=== PATIENT | female | born 1995 | race African-American/Black ===

== ENCOUNTER 2016-09-18 08:22 | Emergency (ER) | payer OTHER ==
[2016-09-18 08:33] VITALS: BP 127/76
--- NOTE | 2016-09-18 09:19 | UC ---
Throat Pain/Nasal Mj HPI - HPI Summary HPI Summary: sore left side of throat for 2 days, and period is 2 days late - History of Current Complaint Chief Complaint: UCRespiratory Stated Complaint: SORE THROAT Time Seen by Provider: 09/18/16 08:30 Hx Obtained From: Patient Hx Last Menstrual Period: 08/20/16 ?: No Onset/Duration: Sudden Onset, Lasting Days - 2, Still Present Severity: Mild Pain Intensity: 5 Pain Scale Used: 0-10 Numeric Cough: None Associated Signs & Symptoms: Positive: Negative - Allergies/Home Medications Allergies/Adverse Reactions: Allergies Allergy/AdvReac Type Severity Reaction Status Date / Time Seasonal Allergies Allergy Congestion Uncoded 05/04/16 14:46 PMH/Surg Hx/FS Hx/Imm Hx Previously Healthy: Yes Endocrine History Of: Denies: Diabetes, Thyroid Disease Cardiovascular History Of: Denies: Cardiac Disorders, Hypertension Respiratory History Of: Denies: COPD, Asthma GI/ History Of: Denies: Ulcer Other History Of: Negative For: Anticoagulant Therapy - Surgical History Surgical History: Yes Surgery Procedure, Year, and Place: D&C 2015 - Family History Known Family History: Positive: Hypertension Negative: Cardiac Disease, Diabetes - Social History Occupation: Employed Full-time Lives: With Family Alcohol Use: Rare Substance Use Type: None Smoking Status (MU): Never Smoked Tobacco Have You Smoked in the Last Year: No - Immunization History Most Recent Influenza Vaccination: 2014 Most Recent Tetanus Shot: 01/10/13 Most Recent Pneumonia Vaccination: Unknown Review of Systems Constitutional: Negative Skin: Negative Eyes: Negative ENT: Sore Throat - left side Respiratory: Negative Cardiovascular: Negative Gastrointestinal: Negative Genitourinary: Negative Motor: Negative Neurovascular: Negative Musculoskeletal: Negative Neurological: Negative Psychological: Negative All Other Systems Reviewed And Are Negative: Yes Physical Exam Triage Information Reviewed: Yes Appearance: Well-Appearing, No Pain Distress, Well-Nourished Vital Signs: Initial Vital Signs Temp 99.5 F 09/18/16 08:26 Pulse 112 09/18/16 08:26 Resp 16 09/18/16 08:26 BP 127/76 09/18/16 08:26 Pulse Ox 98 09/18/16 08:26 Vital Signs Reviewed: Yes Eye Exam: Normal Eyes: Positive: Conjunctiva Clear ENT Exam: Normal ENT: Positive: Normal ENT inspection, Hearing grossly normal, Pharynx normal, TMs normal, Tonsillar swelling - left---no evidence of peritonsil. abscess ulula mid line. Negative: Nasal congestion, Nasal drainage, Trismus, Muffled/ hoarse voice Dental Exam: Normal Neck exam: Normal Neck: Positive: Supple, Nontender, No Lymphadenopathy Respiratory Exam: Normal Respiratory: Positive: Chest non-tender, Lungs clear, Normal breath sounds, No respiratory distress, No accessory muscle use Cardiovascular Exam: Normal Cardiovascular: Positive: RRR, No Murmur, Pulses Normal, Brisk Capillary Refill Musculoskeletal Exam: Normal Musculoskeletal: Positive: Strength Intact, ROM Intact, No Edema Neurological Exam: Normal Neurological: Positive: Alert, Muscle Tone Normal Psychological Exam: Normal Skin Exam: Normal Diagnostics - Laboratory Diagnostic Studies Completed/Ordered: u preg (-) RST (-) Throat Pain/Nasal Course/Dx - Course Assessment/Plan: clindamycin, ibuprofen, increase fluids, follow with pcp this week - Differential Dx/Diagnosis Differential Diagnosis/HQI/PQRI: Peritonsillar Abscess, Pharyngitis, Sinusitis, Tonsillitis Provider Diagnoses: Tonsillitis, Amenorrhea Discharge - Discharge Plan Condition: Stable Disposition: HOME Prescriptions: Clindamycin Cap(NF) [Cleocin 300 mg Cap(NF)] 300 mg PO Q6H #28 cap Ibuprofen TAB* [Motrin TAB* 600 MG] 600 mg PO Q6H PRN #30 tab PRN Reason: pain Patient Education Materials: Tonsillitis (ED), Amenorrhea (GEN) Referrals: [facility] [place] PHYSICIAN REFERRAL [Outside] - 5 Days
== END 2016-09-18 09:36 | disposition home or self-care (01) ==
LOC: UCEAST 08:22
DX: J03.90 Acute tonsillitis, unspecified (principal); N91.2 Amenorrhea, unspecified
CPT/HCPCS: 84702; 87651; 99212; G0463

== ENCOUNTER 2016-10-06 16:06 | Emergency (ER) | payer OTHER ==
[2016-10-06] MEDS ORDERED: Ibuprofen TAB* 600 MG PO ONE (17:31)
[2016-10-06] MEDS ORDERED: Ibuprofen TAB* 600 MG ONE (17:34)
--- NOTE | 2016-10-06 18:10 | ED ---
Lower Extremity - HPI Summary HPI Summary: 21F presents with right great toe injury today. She was wearing sandals today when she tripped on her toe. She states she has been able to ambulate till 4pm today when it became too painful to ambulate. She has not taken anything for her pain. She denies any previous injury to the area. - History of Current Complaint Chief Complaint: EDExtremityLower Stated Complaint: RT TOE INJURY Time Seen by Provider: 10/06/16 17:40 Hx Last Menstrual Period: 08/20/16 Pain Intensity: 8 - Allergies/Home Medications Allergies/Adverse Reactions: Allergies Allergy/AdvReac Type Severity Reaction Status Date / Time Seasonal Allergies Allergy Congestion Uncoded 10/06/16 17:00 PMH/Surg Hx/FS Hx/Imm Hx Endocrine/Hematology History: Denies: Hx Anticoagulant Therapy, Hx Diabetes, Hx Thyroid Disease Cardiovascular History: Denies: Hx Hypertension Respiratory History: Denies: Hx Asthma, Hx Chronic Obstructive Pulmonary Disease (COPD) GI History: Denies: Hx Ulcer - Surgical History Surgery Procedure, Year, and Place: D&C 2016 Infectious Disease History: No Infectious Disease History: Denies: Hx Clostridium Difficile, Hx Hepatitis, Hx Human Immunodeficiency Virus (HIV), Hx of Known/Suspected MRSA, Hx Shingles, Hx Tuberculosis, Hx Known/ Suspected VRE, Hx Known/Suspected VRSA, History Other Infectious Disease, Traveled Outside the [place] in Last 30 Days - Family History Known Family History: Positive: Hypertension Negative: Cardiac Disease, Diabetes - Social History Alcohol Use: Rare Substance Use Type: Reports: None Smoking Status (MU): Never Smoked Tobacco Have You Smoked in the Last Year: No Review of Systems Negative: Fever Negative: Chest Pain Negative: Shortness Of Breath Positive: Myalgia - right great toe pain All Other Systems Reviewed And Are Negative: Yes Physical Exam Triage Information Reviewed: Yes Vital Signs On Initial Exam: Initial Vitals Temp Pulse Resp BP Pulse Ox 98.9 F 108 14 137/86 100 10/06/16 16:10 10/06/16 16:10 10/06/16 16:10 10/06/16 16:10 10/06/16 16:10 Vital Signs Reviewed: Yes Appearance: Positive: Well-Appearing Skin: Positive: Warm, Dry Head/Face: Positive: Normal Head/Face Inspection Eyes: Positive: Normal, Conjunctiva Clear Respiratory/Lung Sounds: Positive: Clear to Auscultation, Breath Sounds Present Cardiovascular: Positive: Normal, RRR Musculoskeletal: Positive: Limited @ - MTP of right great toe due to pain, Edema Right - mild edema of MTP of right great toe, Other - good pulses, capillary refill < 2secs, sensation grossly intact Diagnostics - Vital Signs Vital Signs Temp Pulse Resp BP Pulse Ox 10/06/16 16:10 98.9 F 108 14 137/86 100 - Laboratory Lab Statement: Any lab studies that have been ordered have been reviewed, and results considered in the medical decision making process. Lower Extremity Course/Dx - Course Course Of Treatment: 21F presents with right great toe injury. she states she tripped and the pain has been gradually getting worst. She has not taken anything for her pain. She has edema noted of MTP joint of right great toe with limited ROM due to pain. Her xray normal. explained likely has sprain of great toe. will have wear hard sole shoes and RICE. patient understands and agrees with plan - Diagnoses Differential Diagnosis/HQI/PQRI: Positive: Fracture (Closed), Sprain, Strain Provider Diagnoses: Pain of right great toe Discharge - Discharge Plan Condition: Good Disposition: HOME Patient Education Materials: Foot Contusion (ED) Referrals: [facility] [place] PHYSICIAN REFERRAL [Outside] No Primary Care Phys,NOPCP [Primary Care Provider] - Additional Instructions: Take Tylenol or ibuprofen every 6 hours as needed for pain Apply ice, rest, elevate Wear hard sole shoes Establish care with primary care physician Return to ED if develop any new or worsening symptoms
--- NOTE | 2016-10-06 18:11 | RAD ---
INDICATION: Great toe pain after tripping TECHNIQUE: 3 views of the right great toe were obtained. FINDINGS: The visualized bones are normal alignment. Joint spaces appear maintained. No fracture is seen. IMPRESSION: NO EVIDENCE FOR FRACTURE. IF THE PATIENT'S SYMPTOMS PERSIST RECOMMEND FOLLOW-UP IMAGING.
[2016-10-06 18:31] VITALS: BP 111/67
== END 2016-10-06 18:29 | disposition home or self-care (01) ==
LOC: ED 16:06
DX: M79.674 Pain in right toe(s) (principal)
CPT/HCPCS: 99282; A9270-GY

== ENCOUNTER 2016-12-13 18:10 | Emergency (ER) | payer OTHER ==
[2016-12-13 18:14] VITALS: BP 142/87
--- NOTE | 2016-12-13 19:52 | UC ---
Knee Pain HPI - HPI Summary HPI Summary: right knee pain for months hurts to even have the children bump in to it---no known trauma, no swelling full ROM no clicking - History of Current Complaint Chief Complaint: UCLowerExtremity Stated Complaint: KNEE PAIN Time Seen by Provider: 12/13/16 18:41 Hx Obtained From: Patient Hx Last Menstrual Period: 12/08/16 ?: No Onset/Duration: Gradual Onset, Lasting Weeks, Still Present Severity Initially: Moderate Severity Currently: Moderate Character: Aching, Throbbing Aggravating Factor(s): Movement Alleviating Factor(s): Rest Associated Signs And Symptoms: Positive: Negative Able to Bear Weight: Yes - Allergies/Home Medications Allergies/Adverse Reactions: Allergies Allergy/AdvReac Type Severity Reaction Status Date / Time MED - UNKNOWN NAME Allergy "BUMPS ON Uncoded 12/13/16 18:15 MY SKIN" Home Medications: Home Medications Control* 1 tab PO DAILY 12/13/16 [History Confirmed 12/13/16] PMH/Surg Hx/FS Hx/Imm Hx Previously Healthy: No Other History Of: Negative For: Anticoagulant Therapy - Surgical History Surgical History: Yes Surgery Procedure, Year, and Place: D&C 2015 - Family History Known Family History: Positive: Hypertension Negative: Cardiac Disease, Diabetes - Social History Occupation: Unemployed Lives: With Family Alcohol Use: Rare Substance Use Type: None Smoking Status (MU): Never Smoked Tobacco Have You Smoked in the Last Year: No - Immunization History Most Recent Influenza Vaccination: 2014 Most Recent Tetanus Shot: 01/10/13 Most Recent Pneumonia Vaccination: Unknown Review of Systems Constitutional: Negative Skin: Negative Eyes: Negative ENT: Negative Respiratory: Negative Cardiovascular: Negative Gastrointestinal: Negative Genitourinary: Negative Motor: Negative Neurovascular: Negative Musculoskeletal: Arthralgia - right knee Neurological: Negative Psychological: Negative All Other Systems Reviewed And Are Negative: Yes Physical Exam Triage Information Reviewed: Yes Appearance: Well-Appearing, No Pain Distress, Well-Nourished Vital Signs: Initial Vital Signs Temp 98.8 F 12/13/16 18:11 Pulse 104 12/13/16 18:11 Resp 16 12/13/16 18:11 BP 142/87 12/13/16 18:11 Pulse Ox 99 12/13/16 18:11 Vital Signs Reviewed: Yes Eye Exam: Normal Eyes: Positive: Conjunctiva Clear ENT Exam: Normal ENT: Positive: Normal ENT inspection, Hearing grossly normal. Negative: Nasal congestion, Nasal drainage, Trismus, Muffled/hoarse voice Dental Exam: Normal Dental: Positive: Percussion Tenderness @, Gross Decay/Caries @ Neck exam: Normal Neck: Positive: Supple, Nontender Respiratory Exam: Normal Respiratory: Positive: Chest non-tender, Lungs clear, Normal breath sounds, No respiratory distress, No accessory muscle use Cardiovascular Exam: Normal Cardiovascular: Positive: RRR, No Murmur, Pulses Normal, Brisk Capillary Refill Musculoskeletal Exam: Normal Neurological Exam: Normal Neurological: Positive: Alert, Muscle Tone Normal, Fatigued Psychological Exam: Normal Skin Exam: Normal Diagnostics - Radiology No standard instances Xray Interpretation: No Acute Changes Radiology Interpretation Completed By: Radiologist Knee Pain Course/Dx - Course Course Of Treatment: nsaids, jerald wrap follow with ortho - Differential Dx/Diagnosis Differential Diagnosis/HQI/PQRI: Contusion, Fracture (Closed), Internal Derangement Of Knee, Sprain, Strain, Tendonitis Provider Diagnoses: Right knee pain Discharge - Discharge Plan Condition: Stable Disposition: HOME Prescriptions: Naproxen 500 mg PO BID #30 tab Patient Education Materials: Naproxen (By mouth), Knee Pain (ED), RICE Therapy (ED) Referrals: Ced Morales MD [Medical Doctor] - 1 Week
--- NOTE | 2016-12-13 20:05 | RAD ---
Indication: Right knee injury. 4 views of the right knee demonstrates no fracture or dislocation. No other bone or joint abnormality is identified. IMPRESSION: No fracture of the right knee is noted.
== END 2016-12-13 20:15 | disposition home or self-care (01) ==
LOC: UCEAST 18:10
DX: M25.561 Pain in right knee (principal)
CPT/HCPCS: 99212; G0463

== ENCOUNTER 2017-04-09 08:47 | Emergency (ER) | payer OTHER ==
[2017-04-09 09:00] VITALS: BP 111/64
--- NOTE | 2017-04-09 09:10 | UC ---
Throat Pain/Nasal Mj HPI - HPI Summary HPI Summary: 21 yo female with sore throat x 3 days myalgias states she has been ill x 2 weeks runny nose productive cough no sob - History of Current Complaint Chief Complaint: UCGeneralIllness Stated Complaint: SORE THROAT Time Seen by Provider: 04/09/17 09:04 Hx Obtained From: Patient Hx Last Menstrual Period: 03/27/17 Onset/Duration: Gradual Onset, Lasting Days Pain Intensity: 4 Pain Scale Used: 0-10 Numeric Cough: Productive Associated Signs & Symptoms: Positive: Nasal Discharge - 2 weeks - Epiglottits Risk Factors Epiglottis Risk Factors: Negative - Allergies/Home Medications Allergies/Adverse Reactions: Allergies Allergy/AdvReac Type Severity Reaction Status Date / Time MED - UNKNOWN NAME Allergy "BUMPS ON Uncoded 04/09/17 09:00 MY SKIN" PMH/Surg Hx/FS Hx/Imm Hx Previously Healthy: Yes Respiratory History: Bronchitis Other History Of: Negative For: Anticoagulant Therapy - Surgical History Surgical History: Yes Surgery Procedure, Year, and Place: D&C 2015 - Family History Known Family History: Positive: Hypertension, Respiratory Disease - asthma Negative: Cardiac Disease, Diabetes - Social History Alcohol Use: Rare Substance Use Type: None Smoking Status (MU): Never Smoked Tobacco Have You Smoked in the Last Year: No - Immunization History Most Recent Influenza Vaccination: 2014 Most Recent Tetanus Shot: 01/10/13 Most Recent Pneumonia Vaccination: Unknown Review of Systems Constitutional: Negative Skin: Negative Eyes: Negative ENT: Sore Throat, Nasal Discharge, Sinus Congestion Respiratory: Cough Cardiovascular: Negative Gastrointestinal: Negative Genitourinary: Negative Motor: Negative Neurovascular: Negative Musculoskeletal: Myalgia Neurological: Negative Psychological: Negative Is Patient Immunocompromised?: No All Other Systems Reviewed And Are Negative: Yes Physical Exam Triage Information Reviewed: Yes Appearance: Well-Appearing, No Pain Distress, Well-Nourished Vital Signs: Initial Vital Signs Temp 98.0 F 04/09/17 08:54 Pulse 84 04/09/17 08:54 Resp 18 04/09/17 08:54 BP 111/64 04/09/17 08:54 Pulse Ox 100 04/09/17 08:54 Vital Signs Reviewed: Yes Eyes: Positive: Conjunctiva Clear ENT: Positive: Hearing grossly normal, Pharyngeal erythema, Nasal congestion, Nasal drainage, TMs normal, Tonsillar swelling Neck: Positive: Supple, Nontender, No Lymphadenopathy Respiratory: Positive: Lungs clear, Normal breath sounds, No respiratory distress, No accessory muscle use Cardiovascular: Positive: RRR, No Murmur Musculoskeletal: Positive: ROM Intact, No Edema Neurological Exam: Normal Neurological: Positive: Alert Psychological Exam: Normal Skin Exam: Normal Diagnostics - Laboratory Diagnostic Studies Completed/Ordered: strep test : negative Throat Pain/Nasal Course/Dx - Differential Dx/Diagnosis Provider Diagnoses: acute bronchitis. pharyngitis (acute) Discharge - Discharge Plan Condition: Stable Disposition: HOME Prescriptions: Amoxicillin PO (*) [Amoxicillin 875 MG (*)] 875 mg PO BID #20 tab Patient Education Materials: Pharyngitis (ED), Acute Bronchitis (ED) Referrals: No Primary Care Phys,NOPCP [Primary Care Provider] - Additional Instructions: recheck in 4 days if not better
== END 2017-04-09 09:38 | disposition home or self-care (01) ==
LOC: UCEAST 08:47
DX: J20.9 Acute bronchitis, unspecified (principal); J02.9 Acute pharyngitis, unspecified; R09.81 Nasal congestion
CPT/HCPCS: 87651; 99212; G0463

== ENCOUNTER 2017-05-16 09:49 | Emergency (ER) | payer OTHER ==
[2017-05-16 09:57] VITALS: BP 119/61
--- NOTE | 2017-05-16 11:33 | UC ---
Lower Extremity/Ankle HPI - HPI Summary HPI Summary: ONSET OF LEFT FOOT PAIN YESTERDAY. DENIES ANY INJURY OR TRAUMA. NO PREVIOUS INJURY TO THE LEFT ANKLE/FOOT. NO SWELLING, BRUISING OR REDNESS. PAIN WORSE WITH WEIGHT BEARING AND AMBULATION. HAS 2 KIDS AND CHASES THEM AROUND ALL DAY. - History of Current Complaint Chief Complaint: UCLowerExtremity Stated Complaint: ANKLE INJURY Time Seen by Provider: 05/16/17 11:04 Hx Obtained From: Patient Hx Last Menstrual Period: 04/24/17 Onset/Duration: Sudden Onset, Lasting Hours, Still Present Severity Initially: Moderate Severity Currently: Moderate Pain Intensity: 5 Pain Scale Used: 0-10 Numeric Aggravating Factor(s): Standing, Ambulation Alleviating Factor(s): Rest Able to Bear Weight: Yes - Allergies/Home Medications Allergies/Adverse Reactions: Allergies Allergy/AdvReac Type Severity Reaction Status Date / Time No Known Allergies Allergy Verified 05/16/17 09:57 Home Medications: Home Medications Escitalopram Oxalate [Lexapro 10 mg] 10 mg PO DAILY 05/16/17 [History Confirmed 05/16/17] PMH/Surg Hx/FS Hx/Imm Hx Psychological History: Anxiety, Depression Other History Of: Negative For: Anticoagulant Therapy - Surgical History Surgical History: Yes Surgery Procedure, Year, and Place: D&C 2015 - Family History Known Family History: Positive: Hypertension, Respiratory Disease - asthma Negative: Cardiac Disease, Diabetes - Social History Alcohol Use: Occasionally Substance Use Type: None Smoking Status (MU): Never Smoked Tobacco Have You Smoked in the Last Year: No - Immunization History Most Recent Influenza Vaccination: Not UTD Most Recent Tetanus Shot: 01/10/13 Most Recent Pneumonia Vaccination: Unknown Review of Systems Constitutional: Negative Skin: Negative Respiratory: Negative Cardiovascular: Negative Gastrointestinal: Negative Musculoskeletal: Arthralgia - REPORTS LATERAL FOOT PAIN WITH PLANTAR FLEXION All Other Systems Reviewed And Are Negative: Yes Physical Exam Triage Information Reviewed: Yes Appearance: Well-Appearing, No Pain Distress, Well-Nourished Vital Signs: Initial Vital Signs Temp 98.2 F 05/16/17 09:52 Pulse 84 05/16/17 09:52 Resp 18 05/16/17 09:52 BP 119/61 05/16/17 09:52 Pulse Ox 98 05/16/17 09:52 Vital Signs Reviewed: Yes Eyes: Positive: Conjunctiva Clear ENT: Positive: Hearing grossly normal Neck: Positive: Supple Respiratory: Positive: No respiratory distress, No accessory muscle use Cardiovascular: Positive: Pulses Normal Abdomen Description: Positive: Soft Musculoskeletal: Positive: ROM Intact, No Edema, Other: - LEFT ANKLE/FOOT - NO TENDERNESS. ACHILLES INTACT Neurological: Positive: Alert Psychological: Positive: Age Appropriate Behavior Skin: Negative: rashes Lower Extremity Course/Dx - Differential Dx/Diagnosis Provider Diagnoses: LEFT FOOT SPRAIN Discharge - Discharge Plan Condition: Stable Disposition: HOME Patient Education Materials: Foot Sprain (ED) Referrals: Vamshi Walker MD [Medical Doctor] - If Needed Oziel Bailey NP [Primary Care Provider] - If Needed Additional Instructions: REST, ICE, ELEVATE. TAKE IBUPROFEN NEEDED FOR DISCOMFORT. IF YOU ARE NOT IMPROVING OVER THE NEXT 1-2 WEEKS FOLLOW-UP WITH ORTHO OR PODIATRY. PODIATRY IN [facility] Dr. Kevon Acevedo [address] [place] [address] Too Chambers. Please call his office at [phone] to make an appointment to be seen Dr. Cortez Wild. Please call his office at [phone] to make an appointment to be seen
== END 2017-05-16 11:30 | disposition home or self-care (01) ==
LOC: UCEAST 09:49
DX: S93.602A Unspecified sprain of left foot, initial encounter (principal); X58.XXXA Exposure to other specified factors, initial encounter; Y92.9 Unspecified place or not applicable
CPT/HCPCS: 99212; G0463

== ENCOUNTER 2017-07-06 13:50 | Inpatient (IN) | payer OTHER ==
[2017-07-06 14:20] LABS: ABS Basophils 0 10^3/ul (0-0.2); ABS Eosinophils 0.1 10^3/ul (0-0.6); ABS Lymphocytes 1.8 10^3/ul (1.0-4.8); ABS Monocytes 0.4 10^3/ul (0-0.8); ABS Nucleated RBC 0 10^3/ul; Eosinophil % 1.6 % (0-6); Hematocrit 35 % (35-47); Hemoglobin 11.9 g/dl (12.0-16.0); Lymphocyte % 28.8 % (25-47); Mean Corpuscular HGB Conc 34 g/dl (31-36); Mean Corpuscular Hemoglobin 28 pg (27-31); Mean Corpuscular Volume 81 fL (80-97); Mean Platelet Volume 8 um3 (7.4-10.4); Nucleated Red Blood Cells % 0; Platelet Count 303 10^3/ul (150-450); Red Blood Count 4.33 10^6/ul (4.0-5.4); Red Cell Distribution Width 15 % (10.5-15); White Blood Count 6.3 10^3/ul (3.5-10.8)
[2017-07-06 14:40] LABS: Urine Appearance Cloudy; Urine Blood Negative (Negative); Urine Color Yellow; Urine Ketones Negative (Negative); Urine Protein Negative (Negative); Urine Specific Gravity 1.016 (1.010-1.030); Urine Urobilinogen Negative (Negative)
--- OUTSIDE RECORDS SUMMARY | 2017-07-06 14:50 | XMS REPORT ---
:1995 External Reference #:[id number] Author Organization [facility] Address [address] [place] [address] Phone [phone] Care Team Providers Name Role Phone Gurwinder Orr M.D. Care Team Information Corporate Banking Officer Unavailable Payers Type Date Identification Numbers Payment Provider Subscriber Commercial Effective: Policy Number: [id number] [facility] Lissette Ruiz 2012 Expires: 2014 PayID: [id number] [address] [address] [place] [address] Commercial Effective: 2014 Policy Number: [facility] Lissette Ruiz [id number] PayID: [id number] [address] [place] [address] Medigap Part B Policy Number: [id number] Medicaid [place] Lissette Ruiz PayID: [id number] [address] [place] [address] Problems Date Description Provider Status Onset: 11/25/2014 Multigravida Kristin Clayton NP Resolved Resolved: 09/21/2016 Family History Date Family Member(s) Problem(s) Comments Father Unknown Mother Depression Mother Anxiety Mother PTSD Mother borderline personality disorder Children 2 First Son A&W First Daughter A&W Siblings 1/2 siblings 4 on mother's side, 3 on father's side, all A&W First Brother A&W First Sister Depression Second Sister A&W Third Sister A&W Fourth Sister A&W Fifth Sister A&W Sixth Sister A&W Paternal Grandfather Unknown Paternal Grandmother Unknown Maternal Grandfather A&W Maternal Grandmother due to COPD () Social History Type Date Description Comments Education Highest level completed, 1 year of college Marital Status Lives With Daughter Lives With Son Lives With Spouse Pets 2 cats Occupation Homemaker Environmental Hazards Not exposed to any environmental hazards Environmental Hazards Low Lead Risk Cigarette Use Never Smoked Cigarettes ETOH Use Alcohol Use Prior To ETOH Use occ holiday drink Smoking Patient has never smoked Recreational Drug Use Does Not Use Drugs Daily Caffeine Does not consume caffeine Exercise Type/Frequency Exercises rarely Seat Belt/Car Seat Always uses seat belt Currently Active Patient is currently sexually active Contraceptive Methods None STD's Trichomoniasis Allergies, Adverse Reactions, Alerts Date Description Reaction Status Severity Comments 09/04/2012 NKDA active Medications Medication Date Status Form Strength Qnty SIG Indications Ordering Provider Keflex 06/21/ Hx Capsules 500mg 21caps 1 by mouth Jillian 2017 - three times Jump, 06/28/ a day ANP-C 2017 Lexapro / Active 5mg Unknown 0000 / Active Tablets 28-0.8mg 1 by mouth Unknown Vitamins 0000 every day. please substitute any vitamin with 100-300 mcg dha covered by insurance Flagyl 04/13/ Hx Tablets 500mg 4tabs take 4 Geraldine 2017 - tablets by Mylene, 05/16/ mouth on day LM 2016 one. Loestrin 12/05/ Hx Tablets 1.5-30mg-m 84tabs 1 by mouth Z30.49 Jillian 1.5/30 (21) 2017 - cg every day Jump, 04/12/ ANP-C 2016 No Active 09/21/ Hx Kristin Medications 2017 - ERICK Clayton 2016 Nystatin 06/17/ Hx Powder [id number] 30gm Use under Tanika 2016 - /GM breasts bid David, 08/05/ prn usha ALONSO 2015 Colace 06/10/ Hx Capsules 100mg 60caps one capsule Geraldine 2014 - by mouth, up Mylene, 08/05/ to three LM 2015 times a day as needed Ferrous 04/15/ Hx Tablets 324(38Fe) 30tabs one tablet Geraldine Gluconate 2014 - mg by mouth Mylene, 09/20/ once a day LM 2016 No Active 05/31/ Hx Unknown Medications 2012 - 2014 Ferrous 01/24/ Hx Tablets 324(38Fe) 60tabs 1 po bid Tanika Gluconate 2013 - mg Hernandez, 2012 + / Hx Misc 27-1&2 90unit 1 po qd Unknown Dha 0000 - 50mg s 2012 / Hx Tablets 1 by mouth Unknown Vitamins 0000 - every day 2015 Claritin-D 12 / Hx Unknown Hour 0000 - 2016 Immunizations CPT Code Status Date Vaccine Lot # [id number] Given 03/31/2015 Influenza Virus Vaccine Split Virus Use For [id number] Individual 3Yr Older [id number] Given 03/28/2013 Influenza Virus Vaccine Split Virus Use For Individual 3Yr Older 40807 Given 01/10/2013 Diptheria,Tetanus Toxoids And Acelluar Pertussis [id number] Vaccine+Hib Vital Signs Date Vital Result Comment 06/21/2017 BP Systolic 120 mmHg BP Diastolic 80 mmHg Height 64 inches 5'4" Weight 215.00 lb BMI (Body Mass Index) 36.9 kg/m2 Last Menstrual Period 3742359 4 Parity 2 05/16/2017 BP Systolic 124 mmHg BP Diastolic 80 mmHg Height 64 inches 5'4" Last Menstrual Period 2127209 3 Parity 2 04/12/2017 BP Systolic 118 mmHg BP Diastolic 72 mmHg Height 64 inches 5'4" Weight 198.00 lb BMI (Body Mass Index) 34.0 kg/m2 Last Menstrual Period 3688070 3 Parity 2 12/05/2016 BP Systolic 116 mmHg BP Diastolic 70 mmHg Height 64 inches 5'4" Weight 195.00 lb BMI (Body Mass Index) 33.5 kg/m2 Last Menstrual Period 7684119 3 Parity 2 11/22/2016 BP Systolic 120 mmHg BP Diastolic 82 mmHg Height 64 inches 5'4" Weight 195.00 lb BMI (Body Mass Index) 33.5 kg/m2 Last Menstrual Period 9828121 3 Parity 2 11/21/2016 BP Systolic 130 mmHg BP Diastolic 86 mmHg Height 64 inches 5'4" Weight 195.00 lb BMI (Body Mass Index) 33.5 kg/m2 Last Menstrual Period 4262182 3 Parity 2 09/21/2016 BP Systolic 122 mmHg BP Diastolic 90 mmHg Height 64 inches 5'4" Weight 201.00 lb BMI (Body Mass Index) 34.5 kg/m2 Last Menstrual Period 2057554 3 Parity 2 08/05/2015 BP Systolic 120 mmHg BP Diastolic 64 mmHg Height 64 inches 5'4" Weight 211.00 lb BMI (Body Mass Index) 36.2 kg/m2 Last Menstrual Period 7380282 2 Parity 2 11/25/2014 BP Systolic 122 mmHg BP Diastolic 68 mmHg Height 64 inches 5'4" Weight 201.00 lb BMI (Body Mass Index) 34.5 kg/m2 Last Menstrual Period 4829919 2 Parity 1 05/31/2013 BP Systolic 120 mmHg BP Diastolic 74 mmHg Height 64 inches 5'4" Weight 209.00 lb BMI (Body Mass Index) 35.9 kg/m2 Last Menstrual Period 6019970 del 04/22/13 1 Parity 1 09/26/2012 BP Systolic 118 mmHg BP Diastolic 80 mmHg Height 64 inches 5'4" Weight 190.00 lb BMI (Body Mass Index) 32.6 kg/m2 Last Menstrual Period 8227962 1 09/04/2012 BP Systolic 124 mmHg BP Diastolic 72 mmHg Height 64 inches 5'4" Weight 194.00 lb BMI (Body Mass Index) 33.3 kg/m2 Last Menstrual Period 4564628 1 Results Test Date Test Result H/L Range Note Laboratory test 06/21/2017 HCG <pending> finding Laboratory test 04/12/2017 Gardnerella/Yeast: SEE RESULT BELOW 1 finding Vaginal Dna GC/Chlamydia Dna 04/12/2017 Chlamydia Negative Negative Probe trachomatis Rna Neisseria gonorrhoeae (GC) Rna Negative Negative Laboratory test 04/12/2017 Trichomonas vaginalis Positive Negative 2 finding Result Thyroid Function 11/22/2016 Thyroid Stim Hormone 0.7 mIU/L 0.3-4.2 3 [place] [facility] test 09/21/2016 HCG 2.37 mIU/mL 4 finding Laboratory test 07/07/2015 Packed Cells SEE RESULTS BELO 5 finding <SEE NOTE> Type And Screen 07/07/2015 Patient Blood Type O Positive Antibody Screen NEGATIVE 6 Laboratory test finding 07/07/2015 Activated Partial 29.9 seconds 26.0- 36.3 Thrombo Time Protime 07/07/2015 Inr 1.10 0.89-1.11 CBC Auto Diff 07/07/2015 White Blood Count 11.1 10^3/uL High 3.5-10.8 Red Blood Count 3.00 10^6/uL Low 4.0-5.4 Hemoglobin 8.0 g/dL Low 12.0-16.0 Hematocrit 25 % Low 35-47 Mean Corpuscular Volume 82 fL 80-97 Mean Corpuscular Hemoglobin 27 pg 27-31 Mean Corpuscular HGB Conc 32 g/dL 31-36 Red Cell Distribution Width 17 % High 10.5-15 Platelet Count 425 10^3/uL 150-450 Mean Platelet Volume 7 um3 Low 7.4-10.4 Abs Neutrophils 7.4 10^3/uL 1.5-7.7 Abs Lymphocytes 2.2 10^3/uL 1.0-4.8 Abs Monocytes 1.1 10^3/uL High 0-0.8 Abs Eosinophils 0.4 10^3/uL 0-0.6 Abs Basophils 0.1 10^3/uL 0-0.2 Abs Nucleated RBC 0.01 10^3/uL Granulocyte % 67.1 % 38-83 Lymphocyte % 19.5 % Low 25-47 Monocyte % 9.6 % High 1-9 Eosinophil % 3.3 % 0-6 Basophil % 0.5 % 0-2 Nucleated Red Blood Cells % 0.1 CBC With No Diff 07/07/2015 Hemoglobin 6.0 g/dL Low 12.0-16.0 7 Hematocrit 19 % Low 35-47 White Blood Count 12.1 10^3/uL High 3.5-10.8 Red Blood Count 2.30 10^6/uL Low 4.0-5.4 Mean Corpuscular Volume 83 fL 80-97 Mean Corpuscular Hemoglobin 26 pg Low 27-31 Mean Corpuscular HGB Conc 32 g/dL 31-36 Red Cell Distribution Width 17 % High 10.5-15 Platelet Count 352 10^3/uL 150-450 Mean Platelet Volume 7 um3 Low 7.4-10.4 Hemoglobin/Hematacrit 07/07/2015 Hematocrit 19 % Low 35-47 Hemoglobin 6.0 g/dL Low 12.0-16.0 8 Laboratory test 07/07/2015 Surgical Pathology SEE RESULT BELOW 9 finding Laboratory test 05/27/2015 Genital For GRP B SEE RESULT BELOW 10 finding Strep Only Glucose Tolerance 3HR 04/07/2015 GTT 3HR Gestational (SEE NOTE) 11 Gestational Laboratory test 03/31/2015 Glucose 1 HR Post 146 mg/dL 70-160 finding Prandial CBC With No Diff 03/31/2015 White Blood Count 7.9 10^3/uL 4.8-10.8 Red Blood Count 3.54 10^6/uL Low 4.0-5.4 Hemoglobin 9.8 g/dL Low 12.0-16.0 Hematocrit 31 % Low 35-47 Mean Corpuscular Volume 86 fL 80-97 Mean Corpuscular Hemoglobin 28 pg 27-31 Mean Corpuscular HGB Conc 32 g/dL 31-36 Red Cell Distribution Width 14 % 10.5-15 Platelet Count 261 10^3/uL 150-450 Mean Platelet Volume 8 um3 7.4-10.4 Sequential Integreated SCRN 2 [place] 01/21/2015 Interpretation SEE BELOW 12 Risk For Ontd 1:4400 Age Risk Down Syndrome 1:1100 SKYLER Down Syndrome Risk <1:5000 <1:270 SKYLER Trisomy 18 Risk <1:5000 <1:100 Calculated Gestational Age 17.4 13 Afp,Serum 45.0 ng/mL Afp Mom 1.37 14 HCG,Serum 24.5 IU/mL HCG Mom 0.96 Estriol,Free 1.01 ng/mL Estriol Mom 0.95 Inhibin A,Dimeric 129 pg/mL Inhibin A Mom 0.86 Eloy-A 755 ng/mL Eloy-A Mom 1.63 NT Mom 1.02 15 Referring Physician Name GURWINDER ORR Referring Physician Phone [phone] Referring Physician Npi [id number] Specimen # From Part 1 [id number] Date Of 1995 Collection Date 01/21/2015 Maternal Weight 201 lbs Est'd Date Of Delivery 06/27/2015 Nuchal Translucency 1.5 mm [place] Rump Length 65 mm Ultrasound Date 12/19/2014 Nasal Bone NOT GIVEN Mother's Ethnic Origin Insulin Depend Diabetic N Repeat Specimen N Number Of Fetuses 1 HX Of Neural Tube Defects NA Twin B Nasal Bone NG 16 HIV 1/2 AB Evaluation 12/19/2014 HIV 1 2 Antibody Nonreactive Nonreactive 17 Type And Screen 12/19/2014 Patient Blood Type O Positive Antibody Screen NEGATIVE CBC With No Diff 12/19/2014 White Blood Count 6.3 10^3/uL 4.8-10.8 Red Blood Count 4.18 10^6/uL 4.0-5.4 Hemoglobin 11.4 g/dL Low 12.0-16.0 Hematocrit 34 % Low 35-47 Mean Corpuscular Volume 82 fL 80-97 Mean Corpuscular Hemoglobin 27 pg 27-31 Mean Corpuscular HGB Conc 33 g/dL 31-36 Red Cell Distribution Width 14 % 10.5-15 Platelet Count 271 10^3/uL 150-450 Mean Platelet Volume 9 um3 7.4-10.4 RPR 12/19/2014 Pediatric/Maternal YES RPR Nonreactive Nonreactive RPR Titer TNP Syphilis IgG TNP Nonreactive PNL No Urine 12/19/2014 Rubella Screen Immune IU/mL Immune Hemoglobin A1c 5.0 % Less than 6.0 18 Hepatitis B Surface Ag Nonreactive Nonreactive 19 Sequential Integrated SCRN 1 [place] 12/19/2014 Interpretation SEE BELOW 20 Age Risk Down Syndrome 1:830 SKYLER Down Syndrome Risk IN PROCESS <1:50 SKYLER Trisomy 18 Risk IN PROCESS <1:100 Calculated Gestational Age 12.7 21 Eloy-A 755 ng/mL Eloy-A Mom 1.63 HCG,Serum 58.6 IU/mL HCG Mom 0.63 NT Mom 1.02 22 Referring Physician Name KRISTIN CLAYTON 23 Referring Physician Phone [phone] Referring Physician Npi [id number] Date Of 1995 26 Collection Date 12/19/2014 27 Maternal Weight 201 lbs 28 Est'd Date Of Delivery 06/27/2015 29 JOY Determined By U 30 Mother's Ethnic Origin A 31 Number Of Fetuses 1 32 Insulin Depend Diabetic N 33 Repeat Specimen N 34 HX Of Neural Tube Defects NA 35 Prev Down Synd N 36 Donor Egg N 37 Donor Age:Egg Retrieval NOT GIVEN 38 Ultrasound Date 12/19/2014 39 Stage Set Designer's Name RAOUL 40 NTQR Stage Set Designer Id# [id number] NTQR Location Id# [id number] NTQR Reading Phys Id# [id number] FMF Stage Set Designer Id# NOT GIVEN 44 [place] Rump Length 65 mm 45 Nuchal Translucency 1.5 mm 46 Nasal Bone NOT GIVEN 47 If Twins NOT GIVEN 48 Twin B CRL NG mm 49 Twin B NT NG mm 50 Twin B Nasal Bone NG 51 Lead Blood 12/19/2014 Sample Type VENOUS Lead,Blood LESS THAN 3 g/dL 0-9 Laboratory test 11/25/2014 Cytology SEE RESULT BELOW 52 finding GC/Chlamydia Dna 11/25/2014 Chlamydia trachomatis Negative Negative Probe Rna Neisseria gonorrhoeae (GC) Rna Negative Negative 53 Urine Culture And 11/25/2014 Urine Culture SEE RESULT BELOW 54 Sensitivities Laboratory test finding 04/22/2013 Surgical Pathology RUN DATE: <SEE NOTE> Laboratory test finding 03/21/2013 Group B Strep Culture (SEE NOTE) 56 Screen Glucose Tolerance 2HR 01/10/2013 GTT 2HR Gestational (SEE NOTE) 57 Gestational CBC With No Diff 01/10/2013 White Blood Count 8.3 10^3/uL 4.8-10.8 Red Blood Count 3.39 10^6/uL Low 4.0-5.4 Hemoglobin 10.1 g/dL Low 12.0-16.0 Hematocrit 29 % Low 35-47 Mean Corpuscular Volume 86 fL 80-97 Mean Corpuscular Hemoglobin 30 pg 27-31 Mean Corpuscular HGB Conc 35 g/dL 31-36 Red Cell Distribution Width 14 % 10.5-15 Platelet Count 188 10^3/uL 150-450 Mean Platelet Volume 9 um3 7.4-10.4 Sequential Integreated SCRN 2 [place] 10/26/2012 Interpretation SEE BELOW 58 Risk For Ontd 1:4200 Age Risk Down Syndrome 1:1100 SKYLER Down Syndrome Risk <1:5000 <1:270 SKYLER Trisomy 18 Risk <1:5000 <1:100 Calculated Gestational Age 15.0 59 Afp,Serum 30.6 NG/ML Afp Mom 1.16 60 HCG,Serum 28.3 IU/mL HCG Mom 0.89 Estriol,Free 0.44 NG/ML Estriol Mom 1.24 Inhibin A,Dimeric 179 pg/mL Inhibin A Mom 1.10 Eloy-A 415 NG/ML Eloy-A Mom 1.24 NT Mom 1.50 61 Referring Physician Name GURWINDER ORR Referring Physician Phone [phone] Referring Physician Npi [id number] Specimen # From Part 1 [id number] Date Of 1995 Collection Date 10/26/2012 Maternal Weight 190 LBS Est'd Date Of Delivery 04/16/2013 Nuchal Translucency 1.70 MM [place] Rump Length 43.0 MM Ultrasound Date 09/26/2012 Nasal Bone N/A Mother's Ethnic Origin OTHER Insulin Depend Diabetic NO Repeat Specimen NO Number Of Fetuses 1 HX Of Neural Tube Defects NO Twin B Nasal Bone NG Urine Culture And Sensitivities 09/26/2012 Urine Culture (SEE NOTE) 62 GC/Chlamydia Dna Probe 09/26/2012 GC/Chlamydia Rna (SEE NOTE) 63 Sequential Integrated SCRN 1 [place] 09/26/2012 Interpretation SEE BELOW 64 Age Risk Down Syndrome 1:850 SKYLER Down Syndrome Risk IN PROCESS <1:50 SKYLER Trisomy 18 Risk IN PROCESS <1:100 Calculated Gestational Age 10.7 65 Eloy-A 415 NG/ML Leoy-A Mom 1.24 HCG,Serum 66.9 IU/mL HCG Mom 1.06 NT Mom 1.50 66 Referring Physician Name GURWINDER ORR Referring Physician Phone [phone] Referring Physician Npi [id number] Date Of 1995 Collection Date 09/26/2012 Maternal Weight 190 LBS Est'd Date Of Delivery 04/16/2013 JOY Determined By U Mother's Ethnic Origin OTHER 67 Number Of Fetuses 1 Insulin Depend Diabetic NO Repeat Specimen NO HX Of Neural Tube Defects NO Brief History (NTD) N/A Prev Down Synd NO Donor Egg NO Donor Age:Egg Retrieval N/A Ultrasound Date Stage Set Designer's Name RAOUL NTQR Stage Set Designer Id# [id number] NTQR Location Id# [id number] NTQR Reading Phys Id# [id number] [facility] Stage Set Designer Id# N/A [place] Rump Length 43.0 MM Nuchal Translucency 1.70 MM Nasal Bone N/A If Twins N/A Twin B CRL NG MM Twin B NT NG MM Twin B Nasal Bone NG Hemoglobinopathy Evaluation 09/26/2012 Erythrocyte Count 3.95 Mill/uL 3.80-5.10 Hemoglobin 11.3 g/dL Low 11.7-15.5 Hematocrit 34.4 % Low 35.0-45.0 MCV 87.2 FL 80.0-100.0 MCH 28.7 pg 27.0-33.0 RDW 14.1 % 11.0-15.0 Hemoglobin A 97.3 % >96.0 Hemoglobin F 0.1 % <2.0 Hemoglobin A2 2.6 % 1.8-3.5 Interpretation see note 68 Cystic Fibrosis Carrier ([place]) 09/26/2012 Reported Ethnicity N/P CF Result see note 69 Interpretation see note 70 Mutations/Polymorphisms see note 71 Method see note 72 Reviewer see note 73 HIV 1/2 AB Evaluation 09/26/2012 HIV 1 2 Antibody Nonreactive Nonreactive 74 Type And Screen 09/26/2012 Patient Blood Type O Positive Antibody Screen NEGATIVE CBC With No Diff 09/26/2012 White Blood Count 6.4 10^3/uL 4.8-10.8 Red Blood Count 3.99 10^6/uL Low 4.0-5.4 Hemoglobin 11.2 g/dL Low 12.0-16.0 Hematocrit 34 % Low 35-47 Mean Corpuscular Volume 86 fL 80-97 Mean Corpuscular Hemoglobin 28 pg 27-31 Mean Corpuscular HGB Conc 33 g/dL 31-36 Red Cell Distribution Width 14 % 10.5-15 Platelet Count 259 10^3/uL 150-450 Mean Platelet Volume 9 um3 7.4-10.4 RPR 09/26/2012 Syphilis IgG TNP Nonreactive RPR Nonreactive Nonreactive RPR Titer TNP Pediatric/Maternal YES PNL No Urine 09/26/2012 Rubella Screen Immune Immune Hemoglobin A1c 5.4 % Less than 6.0 75 Hepatitis B Surface Antigen Nonreactive Nonreactive 76 1 SEE RESULT BELOW Name: LISSETTE RANKIN : [address]: Geraldine Chakraborty CM Acct: [id number] Unit: [id number] AGE: 21 Location: [facility] Re04/12/17 SEX: F Status: REG REF SPEC: [id number] SEBASTIEN: 04/12/17-[address] [facility] [address]: Geraldine Chakraborty CM REQ: [id number] RECD: 04/12/17 STATUS: COMP _ SOURCE: VAGINAL SPDESC: ORDERED: Wil,Yeast DNA Procedure Result Reported Site Gardnerella/Yeast: Vaginal DNA Final 04/13/17- 1124 ML Organism 1 POSITIVE GARDNERELLA Organism 2 Negative Andie The presence of G. vaginalis, although suggestive, is not diagnostic for bacterial vaginosis. Results should be interpreted in conjuction with other clinical and laboratory data available. Women with vaginal discharge should be evaluated for risk factors of cervicitis and pelvic inflammatory disease, toxic shock syndrome (S.aureus), and if present, evaluated for organisms not included in this assay such as N. gonorrhoeae, C. trachomatis, Mobiluncus, Mycoplasma and/or Prevotella. Mixed infections may occur. The performance of this test on patient specimens collected during or immediately after antimicrobial therapy is unknown. The presence or absence of Andie species, or G. vaginalis cannot be used as a test for therapeutic success or failure. * ML - [facility] ([facility]) . END OF REPORT * ML=Testing performed at Main Lab DEPARTMENT OF PATHOLOGY, [address] [place] [address] Yony Calvert M.D. Director [facility] # [id number] 2 [id number] GC/Chlamydia Source?: Endocervical Trichomonas Source: Endocervical 3 Test Performed by: [address] [address] 4 <5.0 Negative 5.0 - 25.0 Indeterminate (Repeat testing recommended after 72 hours) >25.0 Positive Perimenopausal women can display HCG levels of up to 20 mIU/mL 5 SEE RESULTS BELOW [id number] OP PC TRANSFUSED 07/08/15 0002 [id number] OP PC TRANSFUSED 07/07/15 2107 6 --- 07/07/15 1524 --- Antibody Screen previously reported as: POSITIVE first antibody screen, ABID is negative, FAROOQ is negative, repeated antibody screen is negative 7 Verbal to [id number] by [id number] at 1649 on 07/07/15. Results read back accurately. 8 Verbal to [id number] by [email or web address] at 1649 on 07/07/15. Results read back accurately. 9 SEE RESULT BELOW Name: LISSETTE RANKIN : [address]: Heriberto Go MD Acct: [id number] Unit: [id number] AGE: 19 Location: [facility] [id number] Re07/07/15 Dis: 07/08/15 SEX: F Status: DIS Baylee SPEC: [id number] SEBASTIEN: 07/07/15- SUBM DR: Heriberto Go MD REQ: [id number] RECD: 07/07/15 STATUS: SOUT _ ORDERED: LEVEL IV FINAL DIAGNOSIS Uterine contents, curettage: -- Products of conception including necrotic decidualized endometrium and necrotic chorionic villi with microcalcifications. -- No evidence of gestational trophoblastic disease. PRE-OPERATIVE DIAGNOSIS Retained products of conception GROSS DESCRIPTION The specimen is received in formalin labeled, Retained POC, and consists of an 8.4 x 6.5 x 1.1 cm aggregate of red-brown blood clot and hyman francis irregular soft tissue fragments. Definitive chorionic villi are not identified. No parts are identified. Manager Cargo sections, four cassettes. Signed (signature on file) Jannette Tadeo MD 1344 END OF REPORT * ML=Testing performed at Main Lab DEPARTMENT OF PATHOLOGY, [address] [place] [address] Yony Calvert M.D. Director [facility] # [id number] 10 SEE RESULT BELOW Name: SELAM ARMSTRONGDEVYNLISSETTE : [address]: Geraldine Chakraborty [facility] Acct: [id number] Unit: [id number] AGE: 19 Location: [facility] Re05/27/15 SEX: F Status: REG REF SPEC: [id number] SEBASTIEN: 05/27/[address]: Geraldine Chakraborty [facility] REQ: [id number] RECD: 05/27/15 STATUS: COMP _ SOURCE: TRUPTI/KALIE/RE SPDESC: ORDERED: Grp B Strp Scrn QUERIES: Is Patient Penicillin Allergic? N Is patient penicillin allergic and/or sensitivities needed? N Provider Requisition # C77#[id number] Procedure Result Reported Site Group B Strep Culture Screen Final 05/29/15- 1300 ML Group B Strep Screen Negative * ML - MAIN LAB ([facility]) . END OF REPORT * ML=Testing performed at Main Lab DEPARTMENT OF PATHOLOGY, [address] [place] [address] Yony Calvert M.D. Director [facility] # [id number] 11 GLU Fast 85 Col: 04/07/15 0805 GLU 1HR 171 Col: 04/07/15 0910 GLU 2HR 161 Col: 04/07/15 1015 GLU 3HR 96 Col: 04/07/15 1112 GLU Interp Col: 04/07/15 0805 GTT normal ranges for obstetrics per the [place] [employer] (ACOG).Based on 100 gm glucose load: Fasting <95 mg/dl 1hr <180 mg/dl 2hr <155 mg/dl 3hr <140 mg/dl 12 SCREEN NEGATIVE FOR OPEN NTD, DOWN SYNDROME AND TRISOMY 18. NT WAS USED IN THE RISK CALCULATIONS. 13 [place] rump length (CRL) was used to calculate gestational age. JOY, if provided, was not used for gestational age dating. 14 Reference Range: <2.50 IDD <1.90 TWINS <4.00 TWINS IDD <3.50 TRIPLETS <4.50 15 The Sequential Integrated Screen combines ELOY-A and hCG with or without a nuchal translucency measurement in the first trimester with AFP, unconjugated estriol, intact hCG and Inhibin A in the second trimester. This provides a useful screening test for detection of open neural tube defects, Down syndrome and Trisomy 18. It should be noted that normal results can never guarantee the of a normal baby and that 2 to 3 percent of newborns have some type of physical or mental defect, many of which are undetectable through any known diagnostic technique. Interpretation reviewed by: Ronel Daniels, Ph.D., [facility]. This is a screening test, not a diagnostic test. This risk assessment is based on demographic data provided by the ordering physician. Please notify the laboratory promptly if any data are incorrect. If you have questions concerning this report: For clinical consultation, call ; For technical questions, call ext [phone]; For recalculations, fax to . This test was developed and its performance characteristics have been determined by [employer] [facility]. Performance characteristics refer to the analytical performance of the test. 16 For additional information, please refer to [email or web address]/faq/FAQ94 (This link is provided for informational/educational purposes only.) 17 It is recognized that currently available assays for the detection of antibodies to HIV-1 and/or HIV-2 may not detect all infected individuals. HIV antibodies may be undetectable in some stages of the infection and in some clinical conditions. The performance of this assay has not been established for populations of infants or children. Assayed by Chemiluminescence Microparticle Immunoassay on the Siemens Advia Centaur CP. Values obtained with different methods or kits cannot be used interchangeably.The diagnostic specificity of the ADVIA Centaur 1/O/2 Enhanced assay in the low risk population was 99.90% (6052/6058) with a 95% confidence interval of 99.78 to 99.96%. 18 Therapeutic target for the treatment of diabetes Mellitus patients is <7% HBA1C, and in selective patients <6.0%.Please refer to [place] [employer] Diabetic care guidelines for further information. 19 , Pediatric (<=12yrs) or Maternal?: YES 20 This patient's risk does not exceed the first trimester cut-off for Down syndrome or trisomy 18. The integrated screen calculation is awaiting the second trimester sample. NT WAS USED IN THE RISK CALCULATIONS. Thank you for submitting this patient's Part 1 specimen. These first trimester values will be incorporated with the second trimester values as part of the integrated testing process. Please submit the Part 2 specimen between 01/04/2015-02/28/2015 (15.0 and 22.9 weeks gestation) with 01/04/2015-01/17/2015 (15.0 - 16.9 weeks gestation) being optimal. When submitting Part 2, please include the following Specimen # from Part 1: [id number] 21 [place] rump length (CRL) was used to calculate gestational age. JOY, if provided, was not used for gestational age dating. 22 Interpretation reviewed by: Rafiq Deluna, Ph.D., [facility] This is a screening test, not a diagnostic test. This risk assessment is based on demographic data provided by the ordering physician. Please notify the laboratory promptly if any data are incorrect. If you have questions concerning this report: For clinical consultation, call ; For technical questions, call ext [phone]; For recalculations, fax to . This test was developed and its performance characteristics have been determined by [facility] [employer] [facility]. Performance characteristics refer to the analytical performance of the test. For additional information, please refer to [email or web address] [email or web address]/faq/[email or web address] (This link is being provided for informational/educational purposes only.) 23 For additional information, please refer to http://[email or web address] SPORTS.EnterpriseDB/faq/[email or web address] (This link is being provided for informational/educational purposes only.) 24 For additional information, please refer to http://zerobound.Hairdressr/faq/[email or web address] (This link is being provided for informational/educational purposes only.) 25 For additional information, please refer to http://zerobound.Hairdressr/faq/[email or web address] (This link is being provided for informational/educational purposes only.) 26 For additional information, please refer to http://zerobound.Hairdressr/faq/FAQ89 (This link is being provided for informational/educational purposes only.) 27 For additional information, please refer to http://zerobound.Hairdressr/faq/[email or web address] (This link is being provided for informational/educational purposes only.) 28 For additional information, please refer to http://Youth Noise/faq/FAQ89 (This link is being provided for informational/educational purposes only.) 29 For additional information, please refer to http://Youth Noise/faq/FAQ89 (This link is being provided for informational/educational purposes only.) 30 For additional information, please refer to http://Youth Noise/faq/FAQ89 (This link is being provided for informational/educational purposes only.) 31 For additional information, please refer to http://Youth Noise/faq/FAQ89 (This link is being provided for informational/educational purposes only.) 32 For additional information, please refer to http://Youth Noise/faq/FAQ89 (This link is being provided for informational/educational purposes only.) 33 For additional information, please refer to http://Youth Noise/faq/FAQ89 (This link is being provided for informational/educational purposes only.) 34 For additional information, please refer to http://Youth Noise/faq/FAQ89 (This link is being provided for informational/educational purposes only.) 35 For additional information, please refer to http://Youth Noise/faq/FAQ89 (This link is being provided for informational/educational purposes only.) 36 For additional information, please refer to http://Youth Noise/faq/FAQ89 (This link is being provided for informational/educational purposes only.) 37 For additional information, please refer to http://Youth Noise/faq/FAQ89 (This link is being provided for informational/educational purposes only.) 38 For additional information, please refer to http://Youth Noise/faq/FAQ89 (This link is being provided for informational/educational purposes only.) 39 For additional information, please refer to http://Youth Noise/faq/FAQ89 (This link is being provided for informational/educational purposes only.) 40 For additional information, please refer to http://Youth Noise/faq/FAQ89 (This link is being provided for informational/educational purposes only.) 41 For additional information, please refer to http://Youth Noise/faq/FAQ89 (This link is being provided for informational/educational purposes only.) 42 For additional information, please refer to http://Youth Noise/faq/FAQ89 (This link is being provided for informational/educational purposes only.) 43 For additional information, please refer to http://Youth Noise/faq/FAQ89 (This link is being provided for informational/educational purposes only.) 44 For additional information, please refer to http://Youth Noise/faq/FAQ89 (This link is being provided for informational/educational purposes only.) 45 For additional information, please refer to http://Youth Noise/faq/FAQ89 (This link is being provided for informational/educational purposes only.) 46 For additional information, please refer to http://Youth Noise/faq/FAQ89 (This link is being provided for informational/educational purposes only.) 47 For additional information, please refer to http://Youth Noise/faq/FAQ89 (This link is being provided for informational/educational purposes only.) 48 For additional information, please refer to http://Youth Noise/faq/FAQ89 (This link is being provided for informational/educational purposes only.) 49 For additional information, please refer to http://Youth Noise/faq/FAQ89 (This link is being provided for informational/educational purposes only.) 50 For additional information, please refer to http://Youth Noise/faq/FAQ89 (This link is being provided for informational/educational purposes only.) 51 For additional information, please refer to http://Youth Noise/faq/FAQ89 (This link is being provided for informational/educational purposes only.) 52 SEE RESULT BELOW Name: LISSETTE RANKIN : [address]: Kristin Clayton NP Acct: [id number] Unit: [id number] AGE: 19 Location: [facility] Re11/25/14 SEX: F Status: REG REF SPEC: [id number] SEBASTIEN: 11/25/14-[address]: Kristin Clayton NP REQ: [id number] RECD: 11/25/14 STATUS: SOUT _ ORDERED: IMAGE ANALYSIS FINAL DIAGNOSIS Negative for Intraepithelial lesion or Malignancy A. Ectocervical/Endocervical Specimen Adequacy: Satisfactory of evaluation Transformation zone component identified Patient Information: HPV: Thin Layer Pap Test w/reflex to high risk HPV RNA testing when ASCUS Actual Specimen Date: 11/25/14 Last Menstrual Date: 09/20/14 ?: Y Signed (signature on file) PIPPA Escobar (ASCP) 11/26 1256 This Pap test was evaluated with the assistance of the ThinPrep Test Imaging System. Due to cytologic findings at the medical receptionist assistant microscope, comprehensive manual rescreening by a Corrugated Sheet Material Sheeter may be required. The Pap Smear is a screening test designed to aid in the detection of premalignant and malignant conditions of the uterine cervix. It is not a diagnostic procedure and should not be used as the sole means of detecting cervical cancer. Both false- positive and false- negative reports do occur. Depending on your risk status, a Pap smear should be obtained and evaluated every 1-3 years. END OF REPORT * ML=Testing performed at Main Lab DEPARTMENT OF PATHOLOGY, [address] [place] [address] Yony Calvert M.D. Director [facility] # [id number] 53 Female urine specimens have been self-validated by [facility] and have been granted conditional assay approval by [facility]. 54 SEE RESULT BELOW Name: LISSETTE RANKIN : [address]: Kristin Clayton NP Acct: [id number] Unit: [id number] AGE: 19 Location: [facility] Re11/25/14 SEX: F Status: REG REF SPEC: [id number] SEBASTIEN: 11/25/14-[address] [facility] [address]: Kristin Clayton NP REQ: [id number] RECD: 11/25/14 STATUS: COMP _ SOURCE: URINE SPDESC: ORDERED: Urine Culture Procedure Result Verified Site Urine Culture Final 11/27/14- 923 ML Organism 1 NORMAL EMERITA Middleton Count 50-75,000 (Many) CFU/ML * ML - MAIN LAB (PSC1) . END OF REPORT * ML=Testing performed at Main Lab DEPARTMENT OF PATHOLOGY, [facility] [employer] [place], [place] [address] Yony Calvert M.D. Director [facility] # [id number] RUN DATE: 04/24/13 [facility] LIVE PAGE 1 RUN TIME: 5864 [facility] [address] [place], [place] [address] Specimen Inquiry Name: LISSETTE RANKIN : [address]: Lavern Spencer MD Acct: [id number] Unit: [id number] AGE: 17 Location: [place] [address] Re04/22/13 SEX: F Status: ADM IN SPEC: [id number] SEBASTIEN: 04/22/13- [facility] DR: Aníbal Schultz MD REQ: [id number] RECD: 04/22/13 STATUS: SOUT _ ORDERED: LEVEL V FINAL DIAGNOSIS Third trimester placenta (636 g): A. Three vessel umbilical cord with velamentous insertion and no evidence of acute funisitis. B. membranes with no evidence of acute chorioamnionitis. C. Mechanically disrupted placental disc with mature chorionic villi. COMMENT: Dr. Calvert reviewed this case in intradepartmental consultation and agrees with the diagnosis. CLINICAL HISTORY EDC 04/17/13, spontaneous vaginal delivery 04/22/13 at 17:15, retained placenta, manual removal PRE-OPERATIVE DIAGNOSIS Intrauterine GROSS DESCRIPTION The specimen is received in formalin labeled Lissette Selam Shannonmaria del rosario, Placenta and consists of a 636 gram placenta with attached cord and membranes. The placental disc measures 21.8 x 14.5 x 2.5 cm. and is disrupted in the center and the disruption extends to the area of the umbilical cord insertion. The umbilical cord CONTINUED ON NEXT PAGE * ML=Testing performed at Main Lab DEPARTMENT OF PATHOLOGY, [address] [place] [address] Yony Calvert M.D. Director [facility] Permit #[id number] RUN DATE: 04/24/13 [facility] LIVE PAGE 2 RUN TIME: [address] [place] [address] Specimen Inquiry Patient: LISSETTE RANKIN [id number] (Continued) GROSS DESCRIPTION (Continued) GROSS DESCRIPTION (Continued) insertion is bifurcated, with insertions in both regions of disrupted disc. The umbilical cord measures 57.0 cm. and it ranges in diameter from 0.9 up to 1.8 cm., is yellow white and is centrally velamentously inserted 4.0 cm. from the umbilical cord margin. It appears to have four vessels in the area immediately before bifurcation, 2 vessels in each of the bifurcated portions, and three vessels toward the insertion. The surface is glistening and blue to francis. The maternal surface has normal cotyledons with a purple-red cut surface. The membranes are thin, translucent, and pliable. Manager Cargo sections, two cassettes. Signed (signature on file) Jannette Tadeo MD [id number] 56 RUN DATE: 03/23/13 [facility] LIVE PAGE 1 RUN TIME: 1150 [address] [place], [place] [address] Specimen Inquiry Name: LISSETTE RANKIN : [address]: Florence SHETH Acct: [id number] Unit: [id number] AGE: 17 Location: [facility] Re03/21/13 SEX: F Status: REG REF SPEC: [id number] SEBASTIEN: 03/21/[address] [facility] [address]: Florence Simental CNM REQ: [id number] RECD: 03/21/132220 STATUS: COMP _ SOURCE: TRUPTI/KALIE/RE SPDESC: ORDERED: Damon B Strp Scrn QUERIES: Is Patient Penicillin Allergic? N Medent Number [id number] Procedure Result Verified Site Group B Strep Culture Screen Final 03/23/13- 1150 ML Group B Strep Screen Negative END OF REPORT * ML=Testing performed at Main Lab DEPARTMENT OF PATHOLOGY, [address] [place] [address] Yony Calvert M.D. Director [facility] Permit #[id number] GLU Fast 76 Col: 01/10/13 0824 GLU 1HR 134 Col: 01/10/13 0924 GLU 2HR 98 Col: 01/10/13 1024 GTT Interp Col: 01/10/13823 Gestational Diabetes Diagnostic: OGTT Glucose Load: samples drawn after 75-gram glucose drink Target Levels: Fasting <92 mg/dl 1hr <180 mg/dl 2hr <153 mg/dl If ONE or more values meet or exceed the target level, gestational diabetes is diagnosed. 58 SCREEN NEGATIVE FOR OPEN NTD, DOWN SYNDROME AND TRISOMY 18. NT WAS USED IN THE RISK CALCULATIONS. 59 [place] rump length (CRL) was used to calculate gestational age. JOY, if provided, was not used for gestational age dating. 60 Reference Range: <2.50 IDD <1.90 TWINS <4.00 TWINS IDD <3.50 TRIPLETS <4.50 61 The Sequential Integrated Screen combines ELOY-A and hCG with or without a nuchal translucency measurement in the first trimester with AFP, unconjugated estriol, intact hCG and Inhibin A in the second trimester. This provides a useful screening test for detection of open neural tube defects, Down syndrome and Trisomy 18. It should be noted that normal results can never guarantee the of a normal baby and that 2 to 3 percent of newborns have some type of physical or mental defect, many of which are undetectable through any known diagnostic technique. Interpretation reviewed by: Rafiq Deluna, Ph.D., [facility] This is a screening test, not a diagnostic test. This risk assessment is based on demographic data provided by the ordering physician. Please notify the laboratory promptly if any data are incorrect. If you have questions concerning this report: For clinical consultation, call ; For technical questions, call ext [phone]; For recalculations, fax to . This test was developed and its performance characteristics have been determined by [employer] [facility]. Performance characteristics refer to the analytical performance of the test. 62 RUN DATE: 09/28/12 [facility] LIVE PAGE 1 RUN TIME: [address] [place] [address] Specimen Inquiry Name: LISSETTE RANKIN : [address]: Nancy Chahal [facility] Acct: [id number] Unit: [id number] AGE: 17 Location: [facility] Re09/26/12 SEX: F Status: REG REF SPEC: [id number] SEBASTIEN: 09/26/12-[address] [facility] [address]: Nancy Chahal [facility] REQ: [id number] RECD: 09/26/12 STATUS: COMP _ SOURCE: URINE SPDESC: ORDERED: Urine Culture QUERIES: Medent Number [id number] Procedure Result Verified Site Urine Culture Final 09/28/12- 1135 ML Organism 1 NORMAL EMERITA Middleton Count 25-50,000 (Moderate) CFU/ML END OF REPORT * ML=Testing performed at Main Lab DEPARTMENT OF PATHOLOGY, [address] [place] [address] Yony Calvert M.D. Director [facility] Permit #[id number] RUN DATE: 09/28/12 [facility] LIVE PAGE 1 RUN TIME: [address] [place], [place] [address] Specimen Inquiry Name: LISSETTE RANKIN : [address]: Nancy Chahal CNM Acct: [id number] Unit: [id number] AGE: 17 Location: [facility] Re09/26/12 SEX: F Status: REG REF SPEC: [id number] SEBASTIEN: 09/26/12-[address] [facility] [address]: Nancy Chahal CNM REQ: [id number] RECD: 09/27/12 STATUS: COMP _ SOURCE: ENDOCERVIX SPDESC: ORDERED: LI/Itz RNA QUERIES: Medent Number [id number] Procedure Result Verified Site Chlamydia Trachomatis RNA Final 09/28/12- 1418 ML NEGATIVE for Chlamydia trachomatis rRNA GC (N. gonorrhoeae) RNA Final 09/28/12- 1418 ML NEGATIVE for Neisseria gonorrhoeae rRNA A negative result does not preclude the presence of a C. trachomatis or N. gonorrhoeae infection because results are dependent on adequate specimen collection, absence of inhibitors, and sufficient rRNA to be detected. Test results may be affected by improper specimen collection, improper storage, technical error, or specimen mixup. Limitations of the Procedure: The Aptima Combo 2 Assay is not intended for the evaluation of suspected sexual abuse or for other medico-legal indications. For those patients for whom a false positive result may have adverse psychosocial impact, the [facility] recommends retesting by a method using an alternate technology. Therapeutic failure or success cannot be determined with the Aptima Combo 2 Assay since nucleic acid may persist following appropriate antimicrobial therapy. Results from the Aptima Combo 2 Assay should be interpreted in conjunction with other laboratory and clinical data available to the clinican. CONTINUED ON NEXT PAGE * ML=Testing performed at Main Lab DEPARTMENT OF PATHOLOGY, [facility] [employer] [place], [place] [address] Yony Calvert M.D. Director [facility] Permit #[id number] RUN DATE: 09/28/12 [facility] LIVE PAGE 2 RUN TIME: 4239 [facility] [address] [place], [place] [address] Specimen Inquiry Patient: LISSETTE RANKIN [id number] (Continued) Specimen: [id number] Collected: 09/26/12-1452 Received: 09/27/12-1024 (Continued) Procedure Result Verified Site GC (N. gonorrhoeae) RNA Final (continued) 09/28/12- 1413 Performance characteristics for detecting C. trachomatis and N. gonorrhoeae are derived from high prevalence populations. Positive results in low prevalence populations should be interpreted carefully with the understanding that the likelihood of a false positive may be higher than a true positive. END OF REPORT * ML=Testing performed at Main Lab DEPARTMENT OF PATHOLOGY, [address] [place] [address] Yony Calvert M.D. Director [facility] Permit #[id number] 64 This patient's risk does not exceed the first trimester cut-off for Down syndrome or trisomy 18. The integrated screen calculation is awaiting the second trimester sample. NT WAS USED IN THE RISK CALCULATIONS. Thank you for submitting this patient's Part 1 specimen. These first trimester values will be incorporated with the second trimester values as part of the integrated testing process. Please submit the Part 2 specimen between 10/26/2012-12/20/2012 (15.0 and 22.9 weeks gestation) with 10/26/2012-11/08/2012 (15.0 - 16.9 weeks gestation) being optimal. When submitting Part 2, please include the following Specimen # from Part 1: [id number] 65 [place] rump length (CRL) was used to calculate gestational age. JOY, if provided, was not used for gestational age dating. 66 Interpretation reviewed by: Ronel Daniels, Ph.D., [facility]. This is a screening test, not a diagnostic test. This risk assessment is based on demographic data provided by the ordering physician. Please notify the laboratory promptly if any data are incorrect. If you have questions concerning this report: For clinical consultation, call ; For technical questions, call ext [phone]; For recalculations, fax to . This test was developed and its performance characteristics have been determined by [employer] [facility]. Performance characteristics refer to the analytical performance of the test. 67 / 68 INTERPRETATION: NORMAL PATTERN By high-performance liquid chromatography (HPLC), there is a normal pattern of hemoglobins and normal levels of HbA2 and HbF are present. No variant hemoglobins or microcytosis are observed. This is consistent with A/A phenotype. Rare variant hemoglobins have been known to co-elute with hemoglobin A by high-performance liquid chroma- tography. If clinically indicated, Thalassemia and Hemoglobinopathy comprehensive is available (Test code 72302U[20207]). 69 NEGATIVE; NONE OF THE MUTATIONS LISTED BELOW WERE DETECTED 70 This result does not rule out the presence of a mutation or a diagnosis of cystic fibrosis disease (CF).* The risk for mutations that cause CF other than the ones tested depends greatly on family history, clinical presentation, and ethnicity. Chance of Having a CF Mutation Ethnic Group Detection Before After Negative Rate Test Result Ashkenazi Muslim 94% 1 in 24 1 in 400 Non- 88% 1 in 25 1 in 208 -Kenyan 72% 1 in 46 1 in 164 -Kenyan 65% 1 in 65 1 in 186 -Kenyan 49% 1 in 94 1 in 184 Other insufficient data available For assistance with interpretation of these results, please contact your local [employer] genetic counselor or call [phone] ([phone]). 71 G85E (c.254 G>A) 3120+1 G>A(c.2988+1G>A) R334W (c.1000 C>T) 394delTT (c.262_263delTT) V520F (c.1558 G>T) 1717-1 G>A(c.1585-1 G>A) R553X (c.1657 C>T) 1898+1 G>A(c.1766+1 G>A) B4728B(c.3846 G>A) 3659delC (c.3437delC) R347H (c.1040 G>A) 621+1 G>T (c.489+1 G>T) R560T (c.1679 G>C) 3905insT (c.3773_3774insT) J1647U(c.3484 C>T) 2183AA>G (c.2051_2052delAAinsG) Z7410S(c.3909 C>G) 711+1 G>T (c.579+1 G>T) R117H (c.350 G>A) B181epn (c.1519_1521delATC) R347P (c.1040 G>T) 2184delA (c.2052delA) G542X (c.1624 G>T) 3876delA (c.3744delA) A455E (c.1364 C>A) 1078delT (c.948delT) S549N (c.1647 G>A) J066qmf (c.1521_1523delCTT) S549R (c.1646 A>C) 2789+5 G>A(c.2657+5 G>A) G551D (c.1652 G>A) 3849+10kb C>T (c.9422-8253 C>T) This assay detects thirty-two mutations, including the twenty-three core mutations recommended by the [place] [employer] (ACMG) and the [place] [employer] (ACOG) for population-based CF carrier screening. Testing for the intron 8 5T polymorphism is performed only when the R117H mutation is detected. Testing for the I506V and I507V polymorphisms is performed only when a homozygous Delta F508 or Delta I507 mutation is detected. In addition to the ACMG/ACOG panel, this assay detects nine additional mutations. While these mutations are rare in the [place] population, the scientific and medical literature indicates that these mutations are not benign polymorphisms. 72 The mutations listed above are detected by an oligonucleotide ligation assay (RASHID) after multiplex- polymerase chain reaction (PCR) amplification of specific CF gene regions. Fluorescent allele-specific reaction products are detected by capillary electrophoresis. Since genetic variation and other factors can affect the accuracy of direct mutation testing, the results of this testing should always be interpreted in light of clinical and familial data. 73 Myranda Medeiros, Ph.D., [facility] Director, Molecular Genetics The performance characteristics of this assay have been determined by [employer] [facility]. Performance characteristics refer to the analytical performance of the test. For more information on this test, go to http://education.Hairdressr/faq/cfscreen 74 It is recognized that currently available assays for the detection of antibodies to HIV-1 and/or HIV-2 may not detect all infected individuals. HIV antibodies may be undetectable in some stages of the infection and in some clinical conditions. The performance of this assay has not been established for populations of infants or children. Assayed by Chemiluminescence Microparticle Immunoassay on the Siemens Advia Centaur CP. Values obtained with different methods or kits cannot be used interchangeably.The diagnostic specificity of the ADVIA Centaur 1/O/2 Enhanced assay in the low risk population was 99.90% (6052/6058) with a 95% confidence interval of 99.78 to 99.96%. 75 Therapeutic target for the treatment of diabetes Mellitus patients is <7% HBA1C, and in selective patients <6.0%.Please refer to [place] [employer] Association Diabetic care guidelines for further information. 76 YES Procedures Date CPT Code Description Status 11/22/2016 21344 Echography Transvaginal Completed 07/07/2015 15830 Dilation & Curettage (D&C) Completed 06/30/2015 61143 Obstetric Care Routine Completed 02/05/2015 82040 Echography Uterus Complete Completed 12/19/2014 69413 Nuchal Translucency Ultrasound /First Completed Gestation 11/25/2014 17338 OB Ultrasound First Trimester Completed 04/22/2013 68752 Obstetric Care Routine Completed 01/10/2013 74688 Injection Intramuscular Or Subcutaneous Completed 11/28/2012 79838 Echography Uterus Complete Completed 09/26/2012 59230 Nuchal Translucency Ultrasound /First Completed Gestation Encounters Type Date Location Provider CPT E/M Dx Office Visit 05/16/2017 1:00p [facility] Aníbal Schultz M.D. 03632 Z31.69 Office Visit 04/12/2017 11:20a [place] [address] F52.6 Office Visit 12/05/2016 10:20a [facility] MARVIN Garza 15666 Z30.49 Office Visit 11/22/2016 11:20a [facility] MARVIN Garza 19423 Z13.0 N92.5 Office Visit 11/21/2016 11:00a [place] [address] N92.5 Office Visit 09/21/2016 11:00a [facility] [place] [address] O02.1 Office Visit 09/04/2012 2:00p [facility] Nancy Chahal CNM 84792 646.90 Plan of Care Future Appointment(s):06/23/2017 11:00 am - Laboratory at [facility]07/24/2017 1:30 pm - Ultrasounds at [facility]07/24/2017 2:00 pm - Geraldine Chakraborty LM at [facility]06/21/2017 - MAULIK Garza-[id number] Other antepartum hemorrhage , first trimesterComments:advised to call if bleeding like a period
--- OUTSIDE RECORDS SUMMARY | 2017-07-06 14:51 | XMS REPORT ---
:1995 External Reference #:[id number] Author Organization [facility] Address [address] [address] Phone [phone] Care Team Providers Name Role Phone Miryam Bowles MD Primary Care Physician Unavailable Payers Type Date Identification Numbers Payment Provider Subscriber Commercial Expires: Policy Number: [id number] [employer]/Grovesoscar Amaya 2016 [facility] Group Name: [id number] [address] [address] PayID: [id number] [place] [address] Commercial Effective: Policy Number: Total Care/Grovesoscar Calderónedes 2013 [id number] [facility] [employer] Expires: 2013 PayID: [id number] [address] [address] [place] [address] Commercial Effective: Policy Number: Javed Tejada 2016 [id number] Group Name: [id number] [address] PayID: [id number] [place] [address] Problems Date Description Provider Status Onset: 04/23/2017 Depressive disorder Oziel Bailey NP Active Onset: 04/23/2017 Anxiety Oziel Bailey NP Active Family History Date Family Member(s) Problem(s) Comments General Asthma brother Mother 40 Children 1 Social History Type Date Description Comments Marital Status Lives With Occupation Currently Working works at [employer] 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 Naproxen 0000/0 Hx Tablets 500mg 60tabs Take 1 Ced Mica 000 - tab heidi Morales MD 12 hours 017 as needed for pain Amoxicillin 000 Hx Tablets 875mg Phoenix Albarado MD 017 Immunizations CPT Code Status Date Vaccine Lot # [id number] Given 05/06/2014 Flu Vaccine Split Virus Preservative Free For Indiv [id number] 3Yr Older 75504 Given 04/13/2010 Hepatitis A Vaccine Pediatric/Adolescent Dosage 2 Dose Schedule 87125 Given 07/03/2009 Meningococcal Conjugate Vaccine 58585 Given 04/08/2009 Hepatitis A Vaccine Pediatric/Adolescent Dosage 2 Dose Schedule 18959 Given 10/02/2008 Gardasil (HPV) 16535 Given 09/18/2008 Gardasil (HPV) 33990 Given 03/26/2008 Varicella (Chicken Pox) Immunization 75763 Given 03/20/2008 Gardasil (HPV) 26154 Given 08/31/2006 Tdap - Tetanus/Diptheria/Acellular Pertussis 57007 Given 08/31/2006 Gardasil (HPV) 93867 Given 08/11/2006 Tdap - Tetanus/Diptheria/Acellular Pertussis 94189 Given 08/18/1998 DTaP Vaccine Younger Than 7 54936 Given 08/18/1998 Measles Mumps And Rubella MMR 75196 Given 08/18/1998 IPV/Poliomyelitis Immunization 82342 Given 08/22/1996 Varicella (Chicken Pox) Immunization 84887 Given 12/22/1994 IPV/Poliomyelitis Immunization 11568 Given 12/22/1994 Measles Mumps And Rubella MMR 51140 Given 12/22/1994 DTaP Vaccine Younger Than 7 13637 Given 02/24/1994 IPV/Poliomyelitis Immunization 09004 Given 02/24/1994 DTaP Vaccine Younger Than 7 13198 Given 1993 Hep B Pediatric/Adolescent 83759 Given 1993 IPV/Poliomyelitis Immunization 45779 Given 1993 DTaP Vaccine Younger Than 7 59169 Given 1993 Hep B Pediatric/Adolescent 05071 Given 1993 IPV/Poliomyelitis Immunization 84885 Given 1993 DTaP Vaccine Younger Than 7 21389 Given 1993 Hep B Pediatric/Adolescent Vital Signs Date Vital Result Comment 06/14/2017 Height 65 inches 5'5" Weight 213.00 lb Heart Rate 101 /min BP Systolic Sitting 120 mmHg BP Diastolic Sitting 66 mmHg Respiratory Rate 14 /min O2 % BldC Oximetry 98 % BMI (Body Mass Index) 35.4 kg/m2 05/15/2017 Height 65 inches 5'5" Heart Rate 80 /min BP Systolic Sitting 130 mmHg BP Diastolic Sitting 86 mmHg Body Temperature 98.3 F O2 % BldC Oximetry 98 % 04/17/2017 Height 65 inches 5'5" Weight 202.00 lb Heart Rate 97 /min BP Systolic Sitting 120 mmHg BP Diastolic Sitting 72 mmHg O2 % BldC Oximetry 98 % BMI (Body Mass Index) 33.6 kg/m2 12/26/2016 Height 65 inches 5'5" Weight 193.00 lb BP Systolic 119 mmHg BP Diastolic 74 mmHg Respiratory Rate 16 /min Pain Level 5 BMI (Body Mass Index) 32.1 kg/m2 05/06/2014 Height 65 inches 5'5" Weight 193.25 lb Heart Rate 90 /min BP Systolic 120 mmHg BP Diastolic 82 mmHg O2 % BldC Oximetry 98 % BMI (Body Mass Index) 32.2 kg/m2 Results Test Date Test Result H/L Range Note Ua Routine 06/14/2017 Ua Specific Grant 1.010 Ua PH 6 Ua Color yellow Ua Appera cloudy Ua WBC trace Ua Protein trace Ua Glucose norm Ua Ketones neg Ua Bilirubin neg Ua Urobilinogen norm Ua Nitrite neg Ua Occult Blood 250 CBC Auto Diff 04/17/2017 White Blood Count 6.0 10^3/uL 3.5-10.8 Red Blood Count 4.40 10^6/uL 4.0-5.4 Hemoglobin 12.1 g/dL 12.0-16.0 Hematocrit 36 % 35-47 Mean Corpuscular Volume 83 fL 80-97 Mean Corpuscular Hemoglobin 27 pg 27-31 Mean Corpuscular HGB Conc 33 g/dL 31-36 Red Cell Distribution Width 14 % 10.5-15 Platelet Count 353 10^3/uL 150-450 Mean Platelet Volume 8 um3 7.4-10.4 Abs Neutrophils 3.2 10^3/uL 1.5-7.7 Abs Lymphocytes 2.0 10^3/uL 1.0-4.8 Abs Monocytes 0.6 10^3/uL 0-0.8 Abs Eosinophils 0.1 10^3/uL 0-0.6 Abs Basophils 0 10^3/uL 0-0.2 Abs Nucleated RBC 0 10^3/uL Granulocyte % 53.3 % 38-83 Lymphocyte % 33.3 % 25-47 Monocyte % 10.4 % High 1-9 Eosinophil % 2.2 % 0-6 Basophil % 0.8 % 0-2 Nucleated Red Blood Cells % 0 Comp Metabolic Panel 04/17/2017 Sodium 138 mmol/L 133-145 Potassium 4.1 mmol/L 3.5-5.0 Chloride 105 mmol/L 101-111 Co2 Carbon Dioxide 28 mmol/L 22-32 Anion Gap 5 mmol/L 2-11 Glucose 101 mg/dL High 70-100 Blood Urea Nitrogen 8 mg/dL 6-24 Creatinine 0.64 mg/dL 0.51-0.95 BUN/Creatinine Ratio 12.5 8-20 Calcium 9.9 mg/dL 8.6-10.3 Total Protein 8.1 g/dL 6.4-8.9 Albumin 4.1 g/dL 3.2-5.2 Globulin 4.0 g/dL 2-4 Albumin/Globulin Ratio 1.0 1-3 Total Bilirubin 0.20 mg/dL 0.2-1.0 Alkaline Phosphatase 47 U/L 34-104 Alt 9 U/L 7-52 Ast 13 U/L 13-39 Egfr Non- 115.0 >60 Egfr 147.9 >60 1 Laboratory test finding 04/17/2017 TSH (Thyroid Stim Horm) 0.90 mcIU/mL 0.34-5.60 Lipid Profile 05/09/2014 Triglycerides 101 mg/dL 2 (Trig/Chol/HDL) Cholesterol 127 mg/dL 3 HDL Cholesterol 38.7 mg/dL 4 LDL Cholesterol 68 mg/dL 5 Comp Metabolic Panel 05/09/2014 Sodium 137 mmol/L 133-145 Potassium 3.8 mmol/L 3.5-5.0 6 Chloride 104 mmol/L 101-111 Co2 Carbon Dioxide 28 mmol/L 22-32 Anion Gap 5 mmol/L 2-11 Glucose 82 mg/dL 70-100 Blood Urea Nitrogen 8 mg/dL 6-24 Creatinine 0.63 mg/dL 0.51-0.95 BUN/Creatinine Ratio 12.7 8-20 Calcium 9.6 mg/dL 8.6-10.3 Total Protein 7.9 g/dL 6.4-8.9 Albumin 4.4 g/dL 3.2-5.2 Globulin 3.5 g/dL 2-4 Albumin/Globulin Ratio 1.3 1-3 Total Bilirubin 0.20 mg/dL 0.2-1.0 Alkaline Phosphatase 48 U/L 34-104 Alt 7 U/L 7-52 Ast 14 U/L 13-39 Egfr Non- 120.5 >60 Egfr 154.9 >60 7 Laboratory test finding 05/09/2014 TSH (Thyroid 0.78 IU/mL 0.34-5.60 Stimulating Horm) CBC Auto Diff 05/09/2014 White Blood Count 4.0 10^3/uL Low 4.8-10.8 Red Blood Count 4.57 10^6/uL 4.0-5.4 Hemoglobin 12.0 g/dL 12.0-16.0 Hematocrit 37 % 35-47 Mean Corpuscular Volume 80 fL 80-97 Mean Corpuscular Hemoglobin 26 pg Low 27-31 Mean Corpuscular HGB Conc 33 g/dL 31-36 Red Cell Distribution Width 15 % 10.5-15 Platelet Count 295 10^3/uL 150-450 Mean Platelet Volume 9 um3 7.4-10.4 Abs Neutrophils 1.6 10^3/uL 1.5-7.7 Abs Lymphocytes 1.8 10^3/uL 1.0-4.8 Abs Monocytes 0.4 10^3/uL 0-0.8 Abs Eosinophils 0.1 10^3/uL 0-0.6 Abs Basophils 0 10^3/uL 0-0.2 Abs Nucleated RBC 0 10^3/uL Granulocyte % 40.0 % 38-83 Lymphocyte % 45.0 % 25-47 Monocyte % 10.6 % High 1-9 Eosinophil % 3.4 % 0-6 Basophil % 1.0 % 0-2 Nucleated Red Blood Cells % 0 1 Because ethnic data is not always readily available, this report includes an eGFR for both -Americans and non- Americans. The National Kidney Disease Education Program (NKDEP) does not endorse the use of the MDRD equation for patients that are not between the ages of 18 and 70, are , have extremes of body size, muscle mass, or nutritional status, or are non- or non-. According to the National Kidney Foundation, irrespective of diagnosis, the stage of the disease is based on the level of kidney function: Stage Description GFR(mL/min/1.73 m(2)) 1 Kidney damage with normal or decreased GFR 90 2 Kidney damage with mild decrease in GFR 60-89 3 Moderate decrease in GFR 30-59 4 Severe decrease in GFR 15-29 5 Kidney failure <15 (or dialysis) 2 Desirable <150 Borderline high 150-199 High 200-499 Very High >500 3 Desirable <200 Borderline high 200-239 High >239 4 Low <40 Desirable: 40-60 High: >60 5 Desirable <100 Near Optimal 100-129 Borderline high 130-159 High 160-189 Very High >189 6 Potassium reference range changed effective 04/13/14 7 Because ethnic data is not always readily available, this report includes an eGFR for both -Americans and non- Americans. The National Kidney Disease Education Program (NKDEP) does not endorse the use of the MDRD equation for patients that are not between the ages of 18 and 70, are , have extremes of body size, muscle mass, or nutritional status, or are non- or non-. According to the National Kidney Foundation, irrespective of diagnosis, the stage of the disease is based on the level of kidney function: Stage Description GFR(mL/min/1.73 m(2)) 1 Kidney damage with normal or decreased GFR 90 2 Kidney damage with mild decrease in GFR 60-89 3 Moderate decrease in GFR 30-59 4 Severe decrease in GFR 15-29 5 Kidney failure <15 (or dialysis) Procedures Description No Information Encounters Type Date Location Provider CPT E/M Dx Office Visit 05/15/2017 10:40a [facility] [place] [address] F32.89 Brittney F41.9 M79.674 Office Visit 04/27/2017 9:40a [facility] [place] [address] D22.39 L81.4 Office Visit 04/17/2017 2:00p [facility] [place] [address] Z00.00 Brittney F32.89 F41.9 D48.5 Office Visit 12/26/2016 10:30a [facility] Ced Morales, [address] M25.561 Of Jhoana ALONSO Office Visit 05/06/2014 11:10a [facility] Internal Medicine Heidi Cobb, [address] V70.0 - Brittney Quiroz V77.1 V77.91 719.46 285.8 278.00 V04.81 Plan of Care 06/14/2017 - Franklyn Ordaz, FNPN39.0 Urinary tract infection, site not specifiedNew Labs:Urinalysis ProfileComments:We sent a culture to the lab to confirm infection and determine antibiotic sensitivity. We will call if need to start on a medication Keep well hydrated. There is a substance in cranberries that makes the bacteria common to these infections unable to stick to the urinary track so sometimes drinking cranberry juice can prevent infections. Please call back if your symptoms do not resolveFollow up:as euoovrR21.2 Pelvic and perineal painComments:I will pema you if you have a pelvic infection.Please call if fever, chills, abdominal pain.Please f/u with OB /Blow Mold Machine Operator for careF41.9 Anxiety disorder, unspecifiedComments:ANXIETY: We discussed to taper off Lexapro because of possible harm, to your baby.Take 10 mg for 7days, 5 mg for 7 days then stop. Call we if you feel depressed or anxious.Also, if you feel desperate:there is someone from my practice available 02/01 ([phone]) and the Emergency Department ([phone]) is always an option. Discussed underlying issues, S&S, and physiological manifestation.O26.91 related conditions, unspecified, first trimester
--- OUTSIDE RECORDS SUMMARY | 2017-07-06 14:51 | XMS REPORT ---
:1995 External Reference #:[id number] Author Organization [facility] includes the [facility] Address [address] [place] [address] Phone [phone] Care Team Providers Name Role Phone Gurwinder Orr M.D. Care Team Information Director Banking Unavailable Payers Type Date Identification Numbers Payment Provider Subscriber Commercial Effective: Policy Number: [id number] [facility] Lissette Ruiz 2012 Expires: 2014 PayID: [id number] [address] [address] [place] [address] Commercial Effective: 2014 Policy Number: [facility] Lissette Ruiz [id number] PayID: [id number] [address] [place] [address] Medigap Part B Policy Number: [id number] Medicaid [place] Lissette Ruiz PayID: [id number] [address] [place] [address] Problems Date Description Provider Status Onset: 11/25/2014 [...] Form Strength Qnty SIG Indications Ordering Provider Lexapro / Active 5mg Unknown 0000 / Active Tablets 28-0.8mg 1 by mouth Unknown Vitamins 0000 every day. please substitute any vitamin with 100-300 mcg dha covered by insurance Flagyl 04/13/ Hx Tablets 500mg 4tabs take 4 Geraldine 2017 - tablets by Mylene, 05/16/ mouth on day LM 2016 one. Loestrin 12/05/ Hx Tablets 1.5-30mg-m 84tabs 1 by mouth Z30.49 Jillian 1.530 (21) 2017 - cg every day Jump, 04/12/ ANP-C 2016 No Active 09/21/ Hx Kristin Medications 2017 - Linda, ERICK 2016 Nystatin 06/17/ Hx Powder 850173Hngc 30gm Use under Tanika 2015 - /GM breasts bid David 08/05/ prn usha ALONSO 2015 Colace 06/10/ Hx Capsules 100mg 60caps one capsule Geraldine 2014 - by mouth, up Mylene 08/05/ to three LM 2015 times a day as needed Ferrous 04/15/ Hx Tablets 324(38Fe) 30tabs one tablet Geraldine Gluconate 2014 - mg by mouth Mylene, 09/20/ once a day LM 2016 No Active 05/31/ Hx Unknown Medications 2012 - 2014 Ferrous 01/24/ Hx Tablets 324(38Fe) 60tabs 1 po bid Tanika Gluconate 2012 - mg David 05/31/ 2012 + / Hx Misc 27-1&2 90unit 1 po qd Unknown Dha 0000 - 50mg s 2012 / Hx Tablets 1 by mouth Unknown Vitamins 0000 - every day 2015 Claritin-D 12 / Hx Unknown Hour 0000 - 2016 Immunizations CPT Code Status Date Vaccine Lot # [id number] Given 03/31/2015 Influenza Virus Vaccine Split Virus Use For [id number] Individual 3Yr Older 86360 Given 03/28/2013 Influenza Virus Vaccine Split Virus Use For Individual 3Yr Older 67888 Given 01/10/2013 Diptheria,Tetanus Toxoids And Acelluar Pertussis [id number] Vaccine+Hib Vital Signs Date Vital Result Comment 06/21/2017 BP Systolic 120 mmHg BP Diastolic 80 mmHg Height 64 inches 5'4" Weight 215.00 lb BMI (Body Mass Index) 36.9 kg/m2 Last Menstrual Period 3812590 4 Parity 2 05/16/2017 BP Systolic 124 mmHg BP Diastolic 80 mmHg Height 64 inches 5'4" Last Menstrual Period 2540581 3 Parity 2 04/12/2017 BP Systolic 118 mmHg BP Diastolic 72 mmHg Height 64 inches 5'4" Weight 198.00 lb BMI (Body Mass Index) 34.0 kg/m2 Last Menstrual Period 6112144 3 Parity 2 12/05/2016 BP Systolic 116 mmHg BP Diastolic 70 mmHg Height 64 inches 5'4" Weight 195.00 lb BMI (Body Mass Index) 33.5 kg/m2 Last Menstrual Period 3973952 3 Parity 2 11/22/2016 BP Systolic 120 mmHg BP Diastolic 82 mmHg Height 64 inches 5'4" Weight 195.00 lb BMI (Body Mass Index) 33.5 kg/m2 Last Menstrual Period 0619853 3 Parity 2 11/21/2016 BP Systolic 130 mmHg BP Diastolic 86 mmHg Height 64 inches 5'4" Weight 195.00 lb BMI (Body Mass Index) 33.5 kg/m2 Last Menstrual Period 9835788 3 Parity 2 09/21/2016 BP Systolic 122 mmHg BP Diastolic 90 mmHg Height 64 inches 5'4" Weight 201.00 lb BMI (Body Mass Index) 34.5 kg/m2 Last Menstrual Period 8930909 3 Parity 2 08/05/2015 BP Systolic 120 mmHg BP Diastolic 64 mmHg Height 64 inches 5'4" Weight 211.00 lb BMI (Body Mass Index) 36.2 kg/m2 Last Menstrual Period 4814746 2 Parity 2 11/25/2014 BP Systolic 122 mmHg BP Diastolic 68 mmHg Height 64 inches 5'4" Weight 201.00 lb BMI (Body Mass Index) 34.5 kg/m2 Last Menstrual Period 7053199 2 Parity 1 05/31/2013 BP Systolic 120 mmHg BP Diastolic 74 mmHg Height 64 inches 5'4" Weight 209.00 lb BMI (Body Mass Index) 35.9 kg/m2 Last Menstrual Period 5503460 del 04/22/13 1 Parity 1 09/26/2012 BP Systolic 118 mmHg BP Diastolic 80 mmHg Height 64 inches 5'4" Weight 190.00 lb BMI (Body Mass Index) 32.6 kg/m2 Last Menstrual Period 6862069 1 09/04/2012 BP Systolic 124 mmHg BP Diastolic 72 mmHg Height 64 inches 5'4" Weight 194.00 lb BMI (Body Mass Index) 33.3 kg/m2 Last Menstrual Period 3970685 1 Results Test Date Test Result H/L Range Note Laboratory test 04/12/2017 Gardnerella/Yeast: SEE RESULT BELOW 1 finding Vaginal Dna GC/Chlamydia Dna 04/12/2017 Chlamydia Negative Negative Probe trachomatis Rna Neisseria gonorrhoeae (GC) Rna Negative Negative Laboratory test 04/12/2017 Trichomonas vaginalis Positive Negative 2 finding Result Thyroid Function 11/22/2016 Thyroid Stim Hormone 0.7 mIU/L 0.3-4.2 3 [place] [facility] test 09/21/2016 HCG 2.37 mIU/mL 4 [...] Physician Name GURWINDER ORR Referring Physician Phone [phone] Referring Physician Npi [id number] Specimen # From Part 1 [id number] Date Of 1995 Collection Date 01/21/2015 Maternal Weight 201 lbs Est'd Date Of Delivery 06/27/2015 Nuchal Translucency 1.5 mm [place] Rump Length 65 mm Ultrasound Date 12/19/2014 [...] Name KRISTIN CLAYTON 23 Referring Physician Phone [phone] Referring Physician Npi [id number] Date Of 1995 26 Collection Date [...] NOT GIVEN 38 Ultrasound Date 12/19/2014 39 Imaging Manager's Name RAOUL 40 NTQR Imaging Manager Id# [id number] NTQR Location Id# [id number] NTQR Reading Phys Id# [id number] FMF Imaging Manager Id# NOT GIVEN 44 [place] Rump Length 65 mm 45 Nuchal Translucency [...] Physician Name GURWINDER ORR Referring Physician Phone [phone] Referring Physician Npi [id number] Specimen # From Part 1 [id number] Date Of 1995 Collection Date 10/26/2012 Maternal Weight 190 LBS Est'd Date Of Delivery 04/16/2013 Nuchal Translucency 1.70 MM [place] Rump Length 43.0 MM Ultrasound Date 09/26/2012 [...] Gestational Age 10.7 65 Eloy-A 415 NG/ML Eloy-A Mom 1.24 HCG,Serum 66.9 IU/mL HCG Mom 1.06 NT Mom 1.50 66 Referring Physician Name GURWINDER ORR Referring Physician Phone [phone] Referring Physician Npi [id number] Date Of 1995 Collection Date 09/26/2012 Maternal Weight 190 LBS Est'd Date Of Delivery 04/16/2013 JOY Determined By U Mother's Ethnic Origin OTHER 67 Number Of Fetuses 1 Insulin Depend Diabetic NO Repeat Specimen NO HX Of Neural Tube Defects NO Brief History (NTD) N/A Prev Down Synd NO Donor Egg NO Donor Age:Egg Retrieval N/A Ultrasound Date Imaging Manager's Name RAOUL NTQR Imaging Manager Id# [id number] NTQR Location Id# [id number] NTQR Reading Phys Id# [id number] FMF Imaging Manager Id# N/A [place] Rump Length 43.0 MM Nuchal Translucency 1.70 [...] [address]: Geraldine Chakraborty CM Acct: [id number] Unit: [id number] AGE: 21 Location: [facility] Re04/12/17 SEX: F Status: REG REF SPEC: [id number] SEBASTIEN: 04/12/17-[address] [facility] [address]: Geraldine Chakraborty CM REQ: [id number] RECD: 04/12/17 STATUS: COMP _ SOURCE: VAGINAL SPDESC: ORDERED: Wil,Yeast DNA Procedure Result Reported Site Gardnerella/Yeast: Vaginal DNA Final 04/13/17- 112 ML Organism 1 POSITIVE GARDNERELLA Organism 2 [...] therapeutic success or failure. * ML - MAIN LAB ([facility]) . END OF REPORT * ML=Testing performed at Main Lab DEPARTMENT OF PATHOLOGY, [address] [place] [address] Yony Calvert M.D. Director [facility] # [id number] GC/Chlamydia Source?: Endocervical Trichomonas Source: Endocervical 3 Test Performed by: [address] [address] 4 <5.0 Negative 5.0 - 25.0 Indeterminate (Repeat testing recommended after 72 hours) >25.0 Positive Perimenopausal women can display HCG levels of up to 20 mIU/mL 5 SEE RESULTS BELOW [id number] OP PC TRANSFUSED 07/08/15 0002 [id number] OP PC TRANSFUSED 07/07/15 2107 6 --- 07/07/15 1524 --- Antibody Screen previously reported as: POSITIVE first antibody screen, ABID is negative, FAROOQ is negative, repeated antibody screen is negative 7 Verbal to [id number] by [email or web address] at 1649 on 07/07/15. Results read back accurately. 8 Verbal to [id number] by [id number] at 1649 on 07/07/15. Results read back accurately. 9 SEE RESULT BELOW Name: LISSETTE RANKIN : [address]: Heriberto Go MD Acct: [id number] Unit: [id number] AGE: 19 Location: [place] [address] Re07/07/15 Dis: 07/08/15 SEX: F Status: DIS Baylee SPEC: [id number] SEBASTIEN: 07/07/15- SUBM DR: Heriberto Go MD REQ: [id number] RECD: 07/07/15 STATUS: SOUT _ ORDERED: LEVEL [...] are not identified. No parts are identified. Ripshear Operator sections, four cassettes. Signed (signature on file) Jannette Tadeo MD 1344 END OF REPORT * ML=Testing performed at Main Lab DEPARTMENT OF PATHOLOGY, [address] [place] [address] Yony Calvert M.D. Director [facility] # [id number] 10 SEE RESULT BELOW Name: LISSETTE RANKIN : [address]: Geraldine AUGUSTIN Acct: [id number] Unit: [id number] AGE: 19 Location: [facility] Re05/27/15 SEX: F Status: REG REF SPEC: [id number] SEBASTIEN: 05/27/15-[address] [facility] [address]: Geraldine AUGUSTIN REQ: [id number] RECD: 05/27/15 STATUS: COMP _ SOURCE: CER/VAG/RE SPDESC: ORDERED: Grp B Strp Scrn QUERIES: Is Patient Penicillin Allergic? N Is patient penicillin allergic and/or sensitivities needed? N Provider Requisition # C77#[id number]_ Procedure Result Reported Site Group B Strep Culture Screen Final 05/29/15- 1300 ML Group B Strep Screen Negative * ML - MAIN LAB ([facility]) . END OF REPORT * ML=Testing performed at Main Lab DEPARTMENT OF PATHOLOGY, [address] [place] [address] Yony Calvert M.D. Director [facility] # [id number] 11 GLU Fast 85 Col: 04/07/15 0805 GLU 1HR 171 Col: 04/07/15 0910 GLU 2HR 161 Col: 04/07/15 1015 GLU 3HR 96 Col: 04/07/15 1112 GLU Interp Col: 04/07/15 0805 GTT normal ranges for obstetrics per the [employer] (ACOG).Based on 100 gm glucose load: Fasting <95 mg/dl 1hr <180 mg/dl 2hr <155 mg/dl 3hr <140 mg/dl 12 SCREEN NEGATIVE FOR OPEN NTD, DOWN SYNDROME AND TRISOMY 18. NT WAS USED IN THE RISK CALCULATIONS. 13 [place] rump length (CRL) was used to calculate [...] known diagnostic technique. Interpretation reviewed by: Ronel Daniels Ph.D., [facility]. This is a screening test, not a diagnostic test. This risk assessment is based on demographic data provided by the ordering physician. Please notify the laboratory promptly if any data are incorrect. If you have questions concerning this report: For clinical consultation, call ; For technical questions, call ext [phone]; For recalculations, fax to . This test was developed and its performance characteristics have been determined by [employer] [facility]. Performance characteristics refer to the analytical performance of the test. 16 For additional information, please refer to http://education.SupplyBetter/faq/FAQ94 (This link is provided for informational/educational purposes [...] and in selective patients <6.0%.Please refer to [employer] Diabetic care guidelines for further [...] Specimen # from Part 1: [id number] 21 [place] rump length (CRL) was used to calculate gestational age. JOY, if provided, was not used for gestational age dating. 22 Interpretation reviewed by: Rafiq Deluna, Ph.D., [facility] This is a screening test, not [...] its performance characteristics have been determined by [employer] [facility]. Performance characteristics refer to the analytical performance of the test. For additional information, please refer to http://Dial2Do.SupplyBetter/faq/FAQ89 (This link is being provided for informational/educational purposes only.) 23 For additional information, please refer to http://Tailor Made Oil/faq/FAQ89 (This link is being provided for informational/educational purposes only.) 24 For additional information, please refer to http://Tailor Made Oil/faq/FAQ89 (This link is being provided for informational/educational purposes only.) 25 For additional information, please refer to http://Dial2Do.SupplyBetter/faq/FAQ89 (This link is being provided for informational/educational purposes only.) 26 For additional information, please refer to http://Tailor Made Oil/faq/FAQ89 (This link is being provided for informational/educational purposes only.) 27 For additional information, please refer to http://Tailor Made Oil/faq/FAQ89 (This link is being provided for informational/educational purposes only.) 28 For additional information, please refer to http://Tailor Made Oil/faq/FAQ89 (This link is being provided for informational/educational purposes only.) 29 For additional information, please refer to http://Tailor Made Oil/faq/FAQ89 (This link is being provided for informational/educational purposes only.) 30 For additional information, please refer to Gauzy://Tailor Made Oil/faq/FAQ89 (This link is being provided for informational/educational purposes only.) 31 For additional information, please refer to http://Tailor Made Oil/faq/FAQ89 (This link is being provided for informational/educational purposes only.) 32 For additional information, please refer to http://Tailor Made Oil/faq/FAQ89 (This link is being provided for informational/educational purposes only.) 33 For additional information, please refer to http://Tailor Made Oil/faq/FAQ89 (This link is being provided for informational/educational purposes only.) 34 For additional information, please refer to http://Tailor Made Oil/faq/FAQ89 (This link is being provided for informational/educational purposes only.) 35 For additional information, please refer to http://Tailor Made Oil/faq/FAQ89 (This link is being provided for informational/educational purposes only.) 36 For additional information, please refer to http://Tailor Made Oil/faq/FAQ89 (This link is being provided for informational/educational purposes only.) 37 For additional information, please refer to http://Tailor Made Oil/faq/FAQ89 (This link is being provided for informational/educational purposes only.) 38 For additional information, please refer to http://Tailor Made Oil/faq/FAQ89 (This link is being provided for informational/educational purposes only.) 39 For additional information, please refer to http://Tailor Made Oil/faq/FAQ89 (This link is being provided for informational/educational purposes only.) 40 For additional information, please refer to http://Tailor Made Oil/faq/FAQ89 (This link is being provided for informational/educational purposes only.) 41 For additional information, please refer to http://Tailor Made Oil/faq/FAQ89 (This link is being provided for informational/educational purposes only.) 42 For additional information, please refer to http://Tailor Made Oil/faq/FAQ89 (This link is being provided for informational/educational purposes only.) 43 For additional information, please refer to http://Tailor Made Oil/faq/FAQ89 (This link is being provided for informational/educational purposes only.) 44 For additional information, please refer to http://Tailor Made Oil/faq/FAQ89 (This link is being provided for informational/educational purposes only.) 45 For additional information, please refer to http://Tailor Made Oil/faq/FAQ89 (This link is being provided for informational/educational purposes only.) 46 For additional information, please refer to http://Tailor Made Oil/faq/FAQ89 (This link is being provided for informational/educational purposes only.) 47 For additional information, please refer to http://Tailor Made Oil/faq/FAQ89 (This link is being provided for informational/educational purposes only.) 48 For additional information, please refer to http://Tailor Made Oil/faq/FAQ89 (This link is being provided for informational/educational purposes only.) 49 For additional information, please refer to http://Tailor Made Oil/faq/FAQ89 (This link is being provided for informational/educational purposes only.) 50 For additional information, please refer to http://Tailor Made Oil/faq/FAQ89 (This link is being provided for informational/educational purposes only.) 51 For additional information, please refer to http://Tailor Made Oil/faq/FAQ89 (This link is being provided for informational/educational purposes only.) 52 SEE RESULT BELOW Name: LISSETTE RANKIN : [address]: Kristin Clayton NP Acct: [id number] Unit: [id number] AGE: 19 Location: [facility] Re11/25/14 SEX: F Status: REG REF SPEC: [id number] SEBASTIEN: 11/25/14-[address] [facility] [address]: Kristin Clayton NP REQ: [id number] RECD: 11/25/14 STATUS: SOUT _ ORDERED: IMAGE [...] was evaluated with the assistance of the Plash Digital LabsPrep Test Imaging System. Due to cytologic findings at the through freight engineer microscope, comprehensive manual rescreening by a Safety Grooving Machine Operator may be required. The Pap Smear is [...] performed at Main Lab DEPARTMENT OF PATHOLOGY, [address] [place] [address] Yony Calvert M.D. Director [facility] # [id number] 53 Female urine specimens have been self-validated by [facility] and have been granted conditional assay approval by [facility]. 54 SEE RESULT BELOW Name: LISSETTE RANKIN : [address]: Kristin Clayton NP Acct: [id number] Unit: [id number] AGE: 19 Location: [facility] Re11/25/14 SEX: F Status: REG REF SPEC: [id number] SEBASTIEN: 11/25/14-[address]: Kristin Clayton NP REQ: [id number] RECD: 11/25/14 STATUS: COMP _ SOURCE: URINE [facility]: ORDERED: Urine Culture Procedure Result Verified Site Urine Culture Final 11/27/14- 923 ML Organism 1 NORMAL EMERITA [place] Count 50-75,000 (Many) CFU/ML * ML - MAIN LAB ([facility]) . END OF REPORT * ML=Testing performed at Main Lab DEPARTMENT OF PATHOLOGY, [facility] [employer] [place], [place] [address] Yony Calvert M.D. Director [facility] # [id number] RUN DATE: 04/24/13 [facility] LAB LIVE PAGE 1 RUN TIME: 6194 [facility] [place], [place] [address] Specimen Inquiry Name: LISSETTE RANKIN : [address]: Lavern Spencer MD Acct: [id number] Unit: [id number] AGE: 17 Location: [place] [address] Re04/22/13 SEX: F Status: ADM IN SPEC: [id number] SEBASTIEN: 04/22/13- SUBM DR: Aníbal Schultz MD REQ: [id number] RECD: 04/22/13 STATUS: SOUT _ ORDERED: LEVEL [...] The specimen is received in formalin labeled Lissetteroque Armstrong, Placenta and consists of a 636 gram placenta with attached cord and membranes. The placental disc measures 21.8 x 14.5 x 2.5 cm. and is disrupted in the center and the disruption extends to the area of the umbilical cord insertion. The umbilical cord CONTINUED ON NEXT PAGE * ML=Testing performed at Main Lab DEPARTMENT OF PATHOLOGY, [address] [place] [address] Yony Calvert M.D. Director [facility] Permit #[id number] RUN DATE: 04/24/13 [facility] LAB LIVE PAGE 2 RUN TIME: [address] [place] [address] Specimen Inquiry Patient: LISSETTE RANKIN [id number] (Continued) GROSS DESCRIPTION (Continued) GROSS DESCRIPTION (Continued) [...] The membranes are thin, translucent, and pliable. Ripshear Operator sections, two cassettes. Signed (signature on file) Jannette Tadeo MD 1526 56 RUN DATE: 03/23/13 [facility] LAB LIVE PAGE 1 RUN TIME: [address] [place], [place] [address] Specimen Inquiry Name: LISSETTE RANKIN : [address]: Florence SHETH Acct: [id number] Unit: [id number] AGE: 17 Location: [facility] Re03/21/13 SEX: F Status: REG REF SPEC: [id number] SEBASTIEN: 03/21/13-[address] [facility] [address]: Florence Simental CNM REQ: [id number] RECD: 03/21/139292 STATUS: COMP _ SOURCE: CER/VAG/RE SPDESC: ORDERED: Grp B Strp Scrn QUERIES: Is Patient Penicillin Allergic? N Medent Number [id number] Procedure Result Verified Site Group B Strep Culture Screen Final 03/23/13- 1150 ML Group B Strep Screen Negative END OF REPORT * ML=Testing performed at Main Lab DEPARTMENT OF PATHOLOGY, [address] [place] [address] Yony Calvert M.D. Director [facility] Permit #[id number] 57 GLU Fast 76 Col: 01/10/13 0824 GLU 1HR 134 Col: 01/10/13 0924 GLU 2HR 98 Col: 01/10/13 1024 GTT Interp Col: 01/10/13 0824 Gestational Diabetes Diagnostic: OGTT Glucose Load: samples drawn after 75-gram glucose drink Target Levels: Fasting <92 mg/dl 1hr <180 mg/dl 2hr <153 mg/dl If ONE or more values meet or exceed the target level, gestational diabetes is diagnosed. 58 SCREEN NEGATIVE FOR OPEN NTD, DOWN SYNDROME AND TRISOMY 18. NT WAS USED IN THE RISK CALCULATIONS. 59 [place] rump length (CRL) was used to calculate [...] technique. Interpretation reviewed by: Rafiq Deluna, Ph.D., [facility] This is a screening test, not [...] its performance characteristics have been determined by [employer] [facility]. Performance characteristics refer to the analytical performance of the test. 62 RUN DATE: 09/28/12 [facility] LAB LIVE PAGE 1 RUN TIME: [address] [place], [place] [address] Specimen Inquiry Name: ILSSETTE RANKIN : [address]: Nancy Chahal [facility] Acct: [id number] Unit: [id number] AGE: 17 Location: [facility] Re09/26/12 SEX: F Status: REG REF SPEC: [id number] SEBASTIEN: 09/26/12-[address] [facility] [address]: Nancy Chahal [facility] REQ: [id number] RECD: 09/26/12 STATUS: COMP _ SOURCE: URINE SPDESC: ORDERED: Urine Culture QUERIES: Medent Number [id number] Procedure Result Verified Site Urine Culture Final 09/28/12- 1135 ML Organism 1 NORMAL EMERITA [place] Count 25-50,000 (Moderate) CFU/ML END OF REPORT * ML=Testing performed at Main Lab DEPARTMENT OF PATHOLOGY, [facility] [employer] [place], [place] [address] Yony Calvert M.D. Director [facility] Permit #[id number] RUN DATE: 09/28/12 [facility] LAB LIVE PAGE 1 RUN TIME: [address] [place] [address] Specimen Inquiry Name: MARIO ARMSTRONGLISSETTE : [address]: Nancy Chahal [facility] Acct: [id number] Unit: [id number] AGE: 17 Location: [facility] Re09/26/12 SEX: F Status: REG REF SPEC: [id number] SEBASTIEN: 09/26/12-[address]: Nancy Chahal [facility] REQ: [id number] RECD: 09/27/12 STATUS: COMP _ SOURCE: ENDOCERVIX SPDESC: ORDERED: LI/Itz RNA QUERIES: Medent Number [id number] Procedure Result Verified Site Chlamydia Trachomatis RNA [...] result may have adverse psychosocial impact, the [facility] recommends retesting by a method using [...] performed at Main Lab DEPARTMENT OF PATHOLOGY, [facility] [employer] [place], [place] [address] Yony Calvert M.D. Director [facility] Permit #[id number] RUN DATE: 09/28/12 [facility] LAB LIVE PAGE 2 RUN TIME: [address] [place], [place] [address] Specimen Inquiry Patient: LISSETTE RANKIN [id number] (Continued) Specimen: [id number] Collected: 09/26/12 Received: 09/27/12-1024 (Continued) Procedure Result Verified Site GC (N. gonorrhoeae) RNA Final (continued) 09/28/12- 0607 Performance characteristics for detecting C. trachomatis and N. gonorrhoeae are derived from high prevalence populations. Positive results in low prevalence populations should be interpreted carefully with the understanding that the likelihood of a false positive may be higher than a true positive. END OF REPORT * ML=Testing performed at Main Lab DEPARTMENT OF PATHOLOGY, [address] [place] [address] Yony Calvert M.D. Director [facility] Permit #[id number] 64 This patient's risk does not exceed [...] Specimen # from Part 1: [id number] 65 [place] rump length (CRL) was used to calculate gestational age. JOY, if provided, was not used for gestational age dating. 66 Interpretation reviewed by: Ronel Daniels, Ph.D., [facility]. This is a screening test, not [...] its performance characteristics have been determined by [employer] [facility]. Performance characteristics refer to the analytical performance [...] and Hemoglobinopathy comprehensive is available (Test code 47900F[36735]). 69 NEGATIVE; NONE OF THE MUTATIONS LISTED [...] Before After Negative Rate Test Result Ashkenazi Cheondoism 94% 1 in 24 1 in 400 Non- 88% 1 in 25 1 in 208 -Serbian 72% 1 in 46 1 in 164 -Serbian 65% 1 in 65 1 in 186 -Serbian 49% 1 in 94 1 in 184 Other insufficient data available For assistance with interpretation of these results, please contact your local [employer]' genetic counselor or call [phone] ([phone]). 71 G85E (c.254 G>A) 3120+1 G>A(c.2988+1G>A) R334W (c.1000 C>T) 394delTT (c.262_263delTT) V520F (c.1558 G>T) 1717-1 G>A(c.1585-1 G>A) R553X (c.1657 C>T) 1898+1 G>A(c.1766+1 G>A) I8483F(c.3846 G>A) 3659delC (c.3437delC) R347H (c.1040 G>A) 621+1 G>T (c.489+1 G>T) R560T (c.1679 G>C) 3905insT (c.3773_3774insT) J7153J(c.3484 C>T) 2183AA>G (c.2051_2052delAAinsG) D7964J(c.3909 C>G) 711+1 G>T (c.579+1 G>T) R117H (c.350 G>A) C619gry (c.1519_1521delATC) R347P (c.1040 G>T) 2184delA (c.2052delA) G542X (c.1624 G>T) 3876delA (c.3744delA) A455E (c.1364 C>A) 1078delT (c.948delT) S549N (c.1647 G>A) J956ovy (c.1521_1523delCTT) S549R (c.1646 A>C) 2789+5 G>A(c.2657+5 G>A) G551D (c.1652 G>A) 3849+10kb C>T (c.2637-9729 C>T) This assay detects thirty-two mutations, including the twenty-three core mutations recommended by the [employer] (ACMG) and the [employer] (ACOG) for [...] and familial data. 73 Myranda Medeiros, Ph.D., [facility] Director, Molecular Genetics The performance characteristics of this assay have been determined by [employer] [facility]. Performance characteristics refer to the analytical performance of the test. For more information on this test, go to http://education.Posterous.A2B/faq/cfscreen 74 It is recognized that currently available [...] and in selective patients <6.0%.Please refer to [place] [employer] Diabetic care guidelines for further information. 76 YES Procedures Date CPT Code Description Status 11/22/2016 42732 Echography Transvaginal Completed 07/07/2015 44478 Dilation & Curettage (D&C) Completed 06/30/2015 02304 Obstetric Care Routine Completed 02/05/2015 32652 Echography Uterus Complete Completed 12/19/2014 93863 Nuchal Translucency Ultrasound /First Completed Gestation 11/25/2014 44285 OB Ultrasound First Trimester Completed 04/22/2013 70180 Obstetric Care Routine Completed 01/10/2013 60061 Injection Intramuscular Or Subcutaneous Completed 11/28/2012 77868 Echography Uterus Complete Completed 09/26/2012 46627 Nuchal Translucency Ultrasound /First Completed Gestation Encounters Type Date Location Provider CPT E/M Dx Office Visit 05/16/2017 1:00p [facility] An[facility]bal Schultz M.D. 96461 Z31.69 Office Visit 04/12/2017 11:20a [place] [address] F52.6 Office Visit 12/05/2016 10:20a [facility] MARVIN Garza 39030 Z30.49 Office Visit 11/22/2016 11:20a [facility] MARVIN Garza 59368 Z13.0 N92.5 Office Visit 11/21/2016 11:00a [place] [address] N92.5 Office Visit 09/21/2016 11:00a [place] [address] O02.1 Office Visit 09/04/2012 2:00p [facility] Nancy Chahal CNM 25074 646.90 Plan of Care Future Appointment(s):07/24/2017 1:30 pm - Ultrasounds at [facility] [id number] 2:00 pm - Geraldine Chakraborty LM at [facility]
[2017-07-06 14:55] LABS: EGFR Non-African American 123.9 (>60)
--- NOTE | 2017-07-06 14:57 | ED ---
Psychiatric Complaint - HPI Summary HPI Summary: Patient presents to the ED with chief complaint of suicidal ideation. She was sent over by her counselor after expressing some thoughts of suicide with her recent worsening depression. She denies drug use or smoking history but endorses alcohol use occasionally. She is 7 weeks and was recently switched from her 20 mg Lexapro to Zoloft approximately 2 weeks ago. She states she has been feeling depressed for a while, but he has gotten worse in the last week. Denies any specific stresses or concerns. She lives at home with her and her children. Denies anxiety. She denies any medical problems and takes no other medications for any reason. She denies any pain today. Vital signs stable on arrival. - History Of Current Complaint Chief Complaint: EDMentalHealth Time Seen by Provider: 07/06/17 13:58 Hx Obtained From: Patient Hx Last Menstrual Period: 04/24/17 ?: No Onset/Duration: Sudden Onset Timing: Constant Severity Initially: Mild Severity Currently: Mild Character: Manic, Depressed, Anxious Aggravating Factor(s): Recent Stress Alleviating Factor(s): Nothing Associated Signs And Symptoms: Positive: Negative Has Suicidal: Reports: Thoughts. Denies: Has Prior Attempt(s) Has Homicidal: Denies: Demonstrates Gesture, Has Prior Attempt(s) - Allergies/Home Medications Allergies/Adverse Reactions: Allergies Allergy/AdvReac Type Severity Reaction Status Date / Time No Known Allergies Allergy Verified 05/16/17 09:57 Home Medications: Home Medications Sertraline* [Zoloft*] 50 mg PO DAILY 07/06/17 [History Confirmed 07/06/17] PMH/Surg Hx/FS Hx/Imm Hx Previously Healthy: Yes Endocrine/Hematology History: Denies: Hx Anticoagulant Therapy, Hx Diabetes, Hx Thyroid Disease Cardiovascular History: Denies: Hx Hypertension Respiratory History: Denies: Hx Asthma, Hx Chronic Obstructive Pulmonary Disease (COPD) GI History: Denies: Hx Ulcer - Surgical History Surgery Procedure, Year, and Place: D&C 2015 - Immunization History Hx Pertussis Vaccination: No Immunizations Up to Date: Unable to Obtain/Confirm Infectious Disease History: No Infectious Disease History: Denies: Hx Clostridium Difficile, Hx Hepatitis, Hx Human Immunodeficiency Virus (HIV), Hx of Known/Suspected MRSA, Hx Shingles, Hx Tuberculosis, Hx Known/ Suspected VRE, Hx Known/Suspected VRSA, History Other Infectious Disease, Traveled Outside the [place] in Last 30 Days - Family History Known Family History: Positive: Hypertension, Respiratory Disease - asthma Negative: Cardiac Disease, Diabetes - Social History Occupation: Unemployed Lives: With Family Alcohol Use: Occasionally Hx Substance Use: No Substance Use Type: Reports: None Hx Tobacco Use: No Smoking Status (MU): Never Smoked Tobacco Have You Smoked in the Last Year: No Review of Systems Constitutional: Negative Negative: Fever, Chills, Fatigue, Skin Diaphoresis Eyes: Negative Cardiovascular: Negative Respiratory: Negative Gastrointestinal: Negative Positive: no symptoms reported, see HPI Musculoskeletal: Negative Neurological: Negative Positive: Depressed All Other Systems Reviewed And Are Negative: Yes Physical Exam Triage Information Reviewed: Yes Vital Signs On Initial Exam: Initial Vitals Temp Pulse Resp BP Pulse Ox 98.1 F 95 16 145/78 100 07/06/17 13:51 07/06/17 13:51 07/06/17 13:51 07/06/17 13:51 07/06/17 13:51 Vital Signs Reviewed: Yes Appearance: Positive: Well-Appearing, Well-Nourished Skin: Positive: Warm, Skin Color Reflects Adequate Perfusion Head/Face: Positive: Normal Head/Face Inspection Eyes: Positive: EOMI, JOON, Conjunctiva Clear Neck: Positive: Supple, Nontender Respiratory/Lung Sounds: Positive: Clear to Auscultation Cardiovascular: Positive: RRR, Pulses are Symmetrical in both Upper and Lower Extremities Musculoskeletal: Positive: Normal, Strength/ROM Intact Neurological: Positive: Speech Normal Psychiatric: Positive: Depressed Diagnostics - Vital Signs Vital Signs Temp Pulse Resp BP Pulse Ox 07/06/17 13:51 98.1 F 95 16 145/78 100 - Laboratory Lab Results: Lab Results 07/06/17 07/06/17 Range/Units 14:10 14:10 WBC 6.3 (3.5-10.8) 10^3/ul RBC 4.33 (4.0-5.4) 10^6/ul Hgb 11.9 L (12.0-16.0) g/dl Hct 35 (35-47) % MCV 81 (80-97) fL MCH 28 (27-31) pg MCHC 34 (31-36) g/dl RDW 15 (10.5-15) % Plt Count 303 (150-450) 10^3/ul MPV 8 (7.4-10.4) um3 Neut % (Auto) 62.5 (38-83) % Lymph % (Auto) 28.8 (25-47) % Bates % (Auto) 6.6 (1-9) % Eos % (Auto) 1.6 (0-6) % Baso % (Auto) 0.5 (0-2) % Absolute Neuts (auto) 4.0 (1.5-7.7) 10^3/ul Absolute Lymphs (auto) 1.8 (1.0-4.8) 10^3/ul Absolute Monos (auto) 0.4 (0-0.8) 10^3/ul Absolute Eos (auto) 0.1 (0-0.6) 10^3/ul Absolute Basos (auto) 0 (0-0.2) 10^3/ul Absolute Nucleated RBC 0 10^3/ul Nucleated RBC % 0 Urine Color Yellow Urine Appearance Cloudy Urine pH 6.0 (5-9) Ur Specific [place] 1.016 (1.010-1.030) Urine Protein Negative (Negative) Urine Ketones Negative (Negative) Urine Blood Negative (Negative) Urine Nitrate Negative (Negative) Urine Bilirubin Negative (Negative) Urine Urobilinogen Negative (Negative) Ur Leukocyte Esterase Trace H (Negative) Urine WBC (Auto) 1+(6-10/hpf) H (Absent) Urine RBC (Auto) Trace(0-2/hpf) (Absent) Ur Squamous Epith Cells Present H (Absent) Urine Bacteria 1+ H (Absent) Urine Glucose Negative (Negative) Result Diagrams: 07/06/17 14:10 07/06/17 14:10 Lab Statement: Any lab studies that have been ordered have been reviewed, and results considered in the medical decision making process. Course/Dx - Course Course Of Treatment: During the course of treatment patient is evaluated for depression and suicidal ideation. Labs obtained in UA obtained. She is cleared for MHU at this time. She will be [facility] [place] [facility] [place] Leon. - Differential Dx/Clinical Impression Provider Diagnosis: Suicidal ideation Discharge - Discharge Plan Condition: Stable Disposition: ADMITTED TO [facility] Referrals: Oziel Bailey, [facility] [employer] [Primary Care Provider] -
[2017-07-07] MEDS ORDERED: Acetaminophen TAB* 325 MG ONE (00:03)
[2017-07-07] MEDS: Acetaminophen TAB* 325 MG PO PRN (00:05)
[2017-07-07] MEDS ORDERED: Al Hydrox/Mg Hydrox/Simet LIQ* 30 ML UDC PO PRN (01:44)
[2017-07-07] MEDS ORDERED: Sertraline* 50 MG TAB PO SCH (09:00)
[2017-07-07] MEDS: Prenatal Vitamin TAB PO SCH (09:16)
--- NOTE | 2017-07-07 12:01 | PN ---
MHU: Group Therapy Note - Service Type Service Type: 99981 Group Psychotherapy - Cognitive Behavioral Group Therapy ( CBT):Patient attended CBT programming this morning and presented with flat affect that did not vary with discussion. Although responsive to direct prompts to respond to questions, patient did not engage in spontaneous conversation.
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
[2017-07-08] MEDS: Sertraline* 100 MG TAB PO SCH (08:41)
[2017-07-08] MEDS: Prenatal Vitamin TAB PO SCH (08:41)
[2017-07-08] MEDS: Acetaminophen TAB* 325 MG PO PRN (08:42)
[2017-07-09] MEDS: Sertraline* 100 MG TAB PO SCH (09:07)
[2017-07-09] MEDS: Prenatal Vitamin TAB PO SCH (09:07)
--- NOTE | 2017-07-09 16:12 | PN ---
Subjective - Subjective Date of Service: 07/09/17 Service Type: 88364 Hosp care 15 min low complexity Subjective: Still passively suicidal. Feels she would be better off . No active plan today. with kids visited. Taking her meds and thinks they are helping. Denies homicidal/foeticidal thoughts, delusions or hallucinations expressed. Objective - Appearance Appearance: Healthy Appearing Dysmorphic Features: No Hygiene: Normal Grooming: Well Kept - Behavior Psychomotor Activities: Normal Exhibits Abnormal Movement: No - Attitude and Relatedness Attitude and Relatedness: Appropriate Eye Contact: Fair - Speech Quality: Unpressured Latencies: Normal Quantity: Appropriate - Mood Patient's Decription of Mood: "Sad" - Affect Observed Affect: Depressed - Thought Process Patient's Thought Process: Coherent, Goal Directed Thought Content: Yes Passive Wish, No Suicidal Planning, No Homicidal Ideation, No Paranoid Ideation - Sensorium Experiencing Hallucinations: No, Sensorium is Clear Type of Hallucinations: Visual: No, Auditory: No, Command: No - Level of Consciousness Level of Consciousness: Alert Orientation: Yes Intact, Yes Orientated to Time, Yes Orientated to Place, Yes Orientated to Person - Impulse Control Impulse Control: Tenuous - Insight and Judgement Insight and Judgement: Poor - Group Participation Particating in Group Activities: Yes - Medication Management Medication Management Adherence: Yes Assessment - Assessment Merits Inpatient Hospitalization: For Immediate Safety, For Stabilization, For Discharge Planning Plan - Plan Treatment Plan: Name: LISSETTE SPIVEY Birthdate: 1995 [id number] Continued Medication Management: Continue Outpt Medication Medications: Current Medications Acetaminophen (Tylenol Tab*) 650 mg PO Q4H PRN PRN Reason: PAIN or TEMP > 101 F Last Admin: 07/08/17 08:42 Dose: 650 mg Al Hydrox/Mg Hydrox/Simethicone (Maalox Plus*) 30 ml PO Q4H PRN PRN Reason: INDIGESTION Multivitamins ( Vitamin Tab*) 1 tab PO DAILY [facility] Last Admin: 07/09/17 09:07 Dose: 1 tab Sertraline HCl (Zoloft*) 100 mg PO QAM [facility] Last Admin: 07/09/17 09:07 Dose: 100 mg - Discharge Plan Discharge Plan: Outpatient Follow Up Outpatient Program: [facility][1]
[2017-07-10] MEDS: Prenatal Vitamin TAB PO SCH (08:35)
[2017-07-10] MEDS: Sertraline* 100 MG TAB PO SCH (08:35)
[2017-07-10 09:03] VITALS: BP 111/76
--- NOTE | 2017-07-10 12:11 | RAD ---
Indication: Vaginal spotting. Real-time sonography of the was performed utilizing endovaginal technique. There is a single intrauterine gestation present. The pole measures 9 mm corresponding to gestational age of 7 weeks 0 days. Average gestational sac size is 2.4 cm corresponding to gestational age of 7 weeks 4 days. Estimated date of delivery is February 24, 2018. heart activity is 152 bpm. There are 2 anechoic structures adjacent to the gestational sac may represent small subchorionic hemorrhage to the right measuring 20 x 8 x 16 mm and anterior measuring 15 x 13 x 22 mm. Right ovary measures 3.8 x 1.6 x 2.3 cm. Left ovary measures 3.2 x 1.0 x 1.6 cm. IMPRESSION: There is a single intrauterine gestation with estimated gestational age of 7 weeks 2 days. Estimated date of delivery is February 24, 2018. Crescentic hypoechoic areas to the right of the gestational sac measuring 20 x 8 x 16 mm an anterior to the gestational sac measures 15 x 13 x 22 mm consistent with subchorionic hemorrhage. No adnexal masses are noted.
--- NOTE | 2017-07-10 22:34 | CONS ---
CONSULTATION REPORT: DATE OF CONSULT: 07/10/17 REASON FOR REFERRAL: Monique was referred for psychological testing secondary to concerns regarding depression and possible lethality as she has been experiencing suicidal rumination in the past several weeks. TEST ADMINISTERED: Monique completed the [place] Multiphasic Personality Inventory-2 (MMPI-2) and was given feedback regarding test results in individual conversation. RELEVANT HISTORY: Monique is 21-year-old female who is and living with her who is a guard manager at [employer] in [place], [place]. They have 2 children ages 2 and 4, and she is recently with the third. She describes difficulties with encroaching depression that has exacerbated in the past several weeks and culminated in her first hospitalization at this facility. She had recently initiated outpatient counseling secondary to depression and describes frustrations with impaired function such as not being able to attend to her children in a characteristic way and in contemplating suicide. She disclosed that prior to admission she had sat in her closet on two different occasions with a rope around her neck and also had done something similar a few months prior. She also engaged in some delicate self-mutilation characterized by scratching. Monique describes a sense of emotional isolation and limited social supports with what sounds to be a fairly stressful home life where they apparently have an open relationship. Monique disclosed that they have an open marriage and she also has another partner as well as does her . She currently is a cwcd-ft-gftw mother and describes stress in regards to volume rather than an acute incident. BEHAVIORAL OBSERVATIONS: Monique was attendant and participatory in group programming on two occasions with this radio script writer. Although she only participated when directly prompted, it was apparent that she was processing information and responding to both staff and peer discussion. She endorsed benefitting from programming, but expressed frustration regarding function on the unit on weekends where there is less structure. Monique spontaneously described intentions of following through with outpatient care post discharge during the feedback session and described hopes of being able to manage her stressors in a more successful fashion. TEST RESULTS: Monique provides an extremely distressed profile on validity scale indicators on the MMPI-2. She elevates all three emotional duress scales with T-scores between 100 and 120. She concomitantly has very low scores on coping and self- esteem indices where she has T-scores between 35 and 30. She subsequently elevates 6 of the 10 clinical scales with primary concerns revolving around depression. Her high score on the depression scale is buttressed by a very low score on the hypomania scare which is often found in persons who are experiencing vegetative symptoms of depression characterized by low energy levels. She also endorses all three interpersonal stress scales between the T-score of 85 and 100 which in her case is not felt to be reflective of a psychotic process, but in her feeling very distanced and alienated from emotional supports. Discussion with interpersonal duress resonated particularly with Monique, coupled with discussion of her high score on the social diversion scale which is quite similar to her endorsement of depression (T = 85). This was discussed in the context of having cynical and pessimistic thoughts and feelings about people and circumstances and how this can be a self- defeating cycle if she is unable to begin to look forward to some basic successes in life. Monique responded positively to supportive discussion regarding child rearing. Although she does not describe experiencing any intense or acute onset of depression, she endorses feeling overloaded in a fairly chronic fashion due to volume of stress. This may be reflected in what sounds to be a rather chaotic household coupled with the demands of having 2 very young kids while being in the first trimester of for a third. IMPRESSIONS AND RECOMMENDATIONS: Monique impresses as experiencing a major depressive disorder consistent with active thoughts of suicide. Concerns regarding characterological vulnerabilities are present in testing but less evident in her relevant history or in her presentation. Although depressed, she impresses as being very pleasant and insight oriented, but who needs further support in order to begin to manage her stressors more adequately. [id number]/[facility] #: [id number] NANI
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
== END 2017-07-10 13:00 | disposition home or self-care (01) | DRG 751 ==
LOC: ED 13:50 → BSU 07-07 00:22
PROVIDERS: ADMIT Psychiatry & Neurology Psychiatry; ATTEND Psychiatry & Neurology Psychiatry
DX: F33.2 Major depressive disorder, recurrent severe without psychotic features (principal); R45.851 Suicidal ideations; Z81.8 Family history of other mental and behavioral disorders; Z81.1 Family history of alcohol abuse and dependence; Z79.899 Other long term (current) drug therapy
CPT/HCPCS: 36415; 76817; 80053; 80307; 80320; 80329; 81003; 81015; 84443; 84702; 85025; 87086; 90853; 99222; 99231; A9270-GY; G0480

== ENCOUNTER 2017-11-06 11:45 | Emergency (ER) | payer OTHER ==
--- OUTSIDE RECORDS SUMMARY | 2017-11-06 11:57 | XMS REPORT ---
:1995 External Reference #:[id number] Author Organization [facility] Address [address] [address] Phone [phone] Care Team Providers Name Role Phone Miryam Bowles MD Primary Care Physician Unavailable Payers Type Date Identification Numbers Payment Provider Subscriber Commercial Expires: Policy Number: [id number] Germain/Mildred Ruiz 2016 Medicaid Group Name: [id number] [address] [address] PayID: [id number] [place] [address] Commercial Effective: Policy Number: Germain/Mildred Ruiz 2013 [id number] Medicaid Expires: 2013 PayID: [id number] [address] [address] [place] [address] Commercial Effective: 2016 Policy Number: [id number] Javed Ruiz Group Name: [id number] [address] PayID: [id number] [place] [address] Problems Date Description Provider Status Onset: 04/23/2017 Depressive disorder Oziel Bailey NP Active Onset: 04/23/2017 Anxiety Oziel Bailey NP Active Family History Date Family Member(s) Problem(s) Comments General Asthma brother Mother 40 Children 1 Social History Type Date Description Comments Marital Status Lives With Occupation Currently Working works at [employer] ETOH Use Denies alcohol use Smoking Patient has never smoked Recreational Drug Use Denies Drug Use Exercise Type/Frequency Does not exercise Allergies, Adverse Reactions, Alerts Date Description Reaction Status Severity Comments 05/06/2014 NKDA active Medications Medication Date Status Form Strength Qnty SIG Indications Ordering Provider Fluticasone 10/18/ Active Suspension 50mcg/Act 16unit 2 sprays J30.89 Oziel Propionate 2018 s each Lynn, FINANCE AND ADMINISTRATION MANAGER nostril qd. Naphcon-A 10/18/ Active Solution 0.025-0.3% 10ml 1-2 drops J30.89 Oziel 2018 into Lynn, FINANCE AND ADMINISTRATION MANAGER affected eye 4 times daily as needed. Escitalopram 04/17/ Active Tablets 10mg 30tabs 1 tablet F32.89 Oziel Oxalate 2017 daily Lynn, FINANCE AND ADMINISTRATION MANAGER Naproxen / Hx Tablets 500mg 60tabs Take 1 tab Ced 0000 - every 12 F 11/ hours as Carmen, 2017 needed for pain Amoxicillin / Hx Tablets 875mg [place] 0000 - MD Thai 2016 Immunizations CPT Code Status Date Vaccine Lot # [id number] Given 05/06/2014 Flu Vaccine Split Virus Preservative Free For Indiv [id number] 3Yr Older 46528 Given 04/13/2010 Hepatitis A Vaccine Pediatric/Adolescent Dosage 2 Dose Schedule 86104 Given 07/03/2009 Meningococcal Conjugate Vaccine 63202 Given 04/08/2009 Hepatitis A Vaccine Pediatric/Adolescent Dosage 2 Dose Schedule 32635 Given 10/02/2008 Gardasil (HPV) 90957 Given 09/18/2008 Gardasil (HPV) 98885 Given 03/26/2008 Varicella (Chicken Pox) Immunization 91780 Given 03/20/2008 Gardasil (HPV) 21541 Given 08/31/2006 Tdap - Tetanus/Diptheria/Acellular Pertussis 84731 Given 08/31/2006 Gardasil (HPV) 81661 Given 08/11/2006 Tdap - Tetanus/Diptheria/Acellular Pertussis 44852 Given 08/18/1998 DTaP Vaccine Younger Than 7 57137 Given 08/18/1998 Measles Mumps And Rubella MMR 06089 Given 08/18/1998 IPV/Poliomyelitis Immunization 51646 Given 08/22/1996 Varicella (Chicken Pox) Immunization 95978 Given 12/22/1994 IPV/Poliomyelitis Immunization 77911 Given 12/22/1994 Measles Mumps And Rubella MMR 38376 Given 12/22/1994 DTaP Vaccine Younger Than 7 34037 Given 02/24/1994 IPV/Poliomyelitis Immunization 06183 Given 02/24/1994 DTaP Vaccine Younger Than 7 99732 Given 1993 Hep B Pediatric/Adolescent 38943 Given 1993 IPV/Poliomyelitis Immunization 36314 Given 1993 DTaP Vaccine Younger Than 7 49894 Given 1993 Hep B Pediatric/Adolescent 88732 Given 1993 IPV/Poliomyelitis Immunization 33848 Given 1993 DTaP Vaccine Younger Than 7 81989 Given 1993 Hep B Pediatric/Adolescent Vital Signs Date Vital Result Comment 10/18/2017 Height 65 inches 5'5" Weight 224.50 lb Heart Rate 105 /min BP Systolic 106 mmHg BP Diastolic 66 mmHg Body Temperature 97.7 F O2 % BldC Oximetry 97 % BMI (Body Mass Index) 37.4 kg/m2 06/14/2017 Height 65 inches 5'5" Weight 213.00 [...] Test Date Test Result H/L Range Note GC/Chlamydia Amplified 06/14/2017 Chlamydia trachomatis Negative Negative 1 Rna Rna Neisseria gonorrhoeae (GC) Rna Negative Negative 1 Laboratory test finding 06/14/2017 Trichomonas Vaginalis Negative Negative 1, 2 Rna Urinalysis Profile 06/14/2017 Urine Color Yellow Urine Appearance Turbid Urine Specific [place] 1.018 1.010-1.030 Urine pH 8.0 5-9 Urine Urobilinogen Negative Negative Urine Ketones Negative Negative Urine Protein Negative Negative Urine Leukocytes Trace Negative Urine Blood 1+ Negative Urine Nitrite Negative Negative Urine Bilirubin Negative Negative Urine Glucose Negative Negative Urine White Blood Cell Trace(0-5/hpf) Absent Urine Red Blood Cell Trace(0-2/hpf) Absent Urine Bacteria Absent Absent Urine Squamous Epithelial Cell Present Absent Urine Amorphous Crystals Present Absent Urine Culture And 06/14/2017 Urine Culture SEE RESULT BELOW 3 Sensitivities Ua Routine 06/14/2017 Ua Specific [place] 1.010 Ua PH 6 Ua Color yellow [...] Egfr Non- 115.0 >60 Egfr 147.9 >60 4 Laboratory test finding 04/17/2017 TSH (Thyroid Stim Horm) 0.90 mcIU/mL 0.34-5.60 Lipid Profile 05/09/2014 Triglycerides 101 mg/dL 5 (Trig/Chol/HDL) Cholesterol 127 mg/dL 6 HDL Cholesterol 38.7 mg/dL 7 LDL Cholesterol 68 mg/dL 8 Comp Metabolic Panel 05/09/2014 Sodium 137 mmol/L 133-145 Potassium 3.8 mmol/L 3.5-5.0 9 Chloride 104 mmol/L 101-111 Co2 Carbon Dioxide [...] Egfr Non- 120.5 >60 Egfr 154.9 >60 10 Laboratory test finding 05/09/2014 TSH (Thyroid 0.78 [...] Nucleated Red Blood Cells % 0 1 [id number] GC/Chlamydia Source?: Endocervical Trichomonas Source: Affirm Vaginal Swab 3 SEE RESULT BELOW Name: LISSETTE RANKIN : [address]: Franklyn Ordaz NP Acct: [id number] Unit: [id number] AGE: 21 Location: [facility] Re06/14/17 SEX: F Status: REG REF SPEC: [id number] SEBASTIEN: 06/14/17-[address]: Franklyn Ordaz NP REQ: [id number] RECD: 06/14/17 STATUS: COMP _ SOURCE: URINE SPDESC: ORDERED: Urine Culture Procedure Result Reported Site Urine Culture Final 06/16/17- 1224 ML No growth of clinically significant organisms * ML - MAIN LAB ([facility]) . END OF REPORT * ML=Testing performed at Main Lab DEPARTMENT OF PATHOLOGY, [address] [place] [address] Yony Calvert M.D. Director [facility] # [id number] 4 Because ethnic data is not always readily [...] 15-29 5 Kidney failure <15 (or dialysis) 5 Desirable <150 Borderline high 150-199 High 200-499 Very High >500 6 Desirable <200 Borderline high 200-239 High >239 7 Low <40 Desirable: 40-60 High: >60 8 Desirable <100 Near Optimal 100-129 Borderline high 130-159 High 160-189 Very High >189 9 Potassium reference range changed effective 04/13/14 10 Because ethnic data is not always readily [...] Location Provider CPT E/M Dx Office Visit 06/14/2017 11:40a [facility] TROY Multani [address] N93.8 R10.2 O26.91 F41.9 Office Visit 05/15/2017 10:40a [facility] [place] [address] F32.89 Brittney F41.9 M79.674 Office Visit 04/27/2017 9:40a [facility] [place] [address] D22.39 L81.4 Office Visit 04/17/2017 2:00p [facility] [place] [address] Z00.00 Brittney F32.89 F41.9 D48.5 Office Visit 12/26/2016 10:30a [facility] Ced Morales, [address] M25.561 Of Jhoana ALONSO Office Visit 05/06/2014 11:10a [facility] Heidi Cobb, [address] V70.0 - Brittney Quiroz V77.1 V77.91 719.46 285.8 278.00 V04.81 Plan of Care 10/18/2017 - Oziel Bailey NPJ30.89 Other allergic rhinitisNew Medication: Fluticasone Propionate 50 mcg/ActNaphcon-A 0.025-0.3 %Comments:I have prescribed the nasal spray we discussed. Start using two sprays each nostril once daily. Tryusing the eye drops when your eyes are irritated.Check with your armature and rotor winder to make sure they do not have any issues with you using the nasal spray.
[2017-11-06] MEDS ORDERED: diPHENhydraMINE IV* 50 MG/ML 1 ml VIAL (BENADRYL) IV ONE (12:17)
[2017-11-06] MEDS ORDERED: NS 0.9% 1000 ML* 1,000 ML IV ONE (12:17)
[2017-11-06] MEDS ORDERED: Acetaminophen TAB* 325 MG PO ONE (12:17)
[2017-11-06] MEDS ORDERED: Metoclopramide IV* 5 MG/ML 2 ML VIAL IV ONE (12:17)
[2017-11-06 12:43] LABS: ABS Basophils 0.1 10^3/ul (0-0.2); ABS Eosinophils 0.3 10^3/ul (0-0.6); ABS Lymphocytes 1.4 10^3/ul (1.0-4.8); ABS Monocytes 0.7 10^3/ul (0-0.8); ABS Neutrophils 6.6 10^3/ul (1.5-7.7); ABS Nucleated RBC 0 10^3/ul; Eosinophil % 2.9 % (0-6); Hematocrit 31 % (35-47); Hemoglobin 10.3 g/dl (12.0-16.0); Lymphocyte % 15.5 % (25-47); Mean Corpuscular HGB Conc 33 g/dl (31-36); Mean Corpuscular Hemoglobin 27 pg (27-31); Mean Corpuscular Volume 82 fL (80-97); Mean Platelet Volume 7.5 um3 (7.4-10.4); Nucleated Red Blood Cells % 0.1; Platelet Count 243 10^3/ul (150-450); Red Blood Count 3.77 10^6/ul (4.0-5.4); Red Cell Distribution Width 15 % (10.5-15)
[2017-11-06 12:49] LABS: EGFR Non-African American 180.4 (>60)
[2017-11-06 15:38] LABS: Urine Appearance Clear; Urine Blood Negative (Negative); Urine Color Straw; Urine Ketones Negative (Negative); Urine Protein Negative (Negative); Urine Specific Gravity 1.004 (1.010-1.030); Urine Urobilinogen Negative (Negative)
[2017-11-06 16:16] VITALS: BP 104/62
--- NOTE | 2017-11-09 21:29 | ED ---
Abelardo Hatfield Angela, scribed for Tarik Mendoza MD on 11/06/17 at 1218 . Headache - HPI Summary HPI Summary: This pt is a 22 y/o female, currently 24 weeks , presenting to [facility] c/o headache for the past 1 week. Pt reports the for the past week she has had constant headache associated with blurred vision. Pt rates her pain 3 or 4 out of 10 in severity. Pt notes she saw an synchronizer recently and was told she was near sighted. Denies hx of vision problems or near sighted. Denies feeling of passing out, swelling in LE, fever, chills, neck pain, neck stiffness. Pt states her ObGYN is [facility]. She denies nausea , vomiting, vaginal discharge, vaginal bleeding, abdominal cramping. PSHx includes D&C for retained placenta. - History Of Current Complaint Chief Complaint: EDHeadache Stated Complaint: VISION LOSS/HEADACHE Hx Obtained From: Patient Hx Last Menstrual Period: 04/24/17 Onset/Duration: Started days ago, Still Present Currently Pain Is: Mild Timing: Constant Character: Typical Headache Location of Headache: Diffuse Aggravating Factor: Nothing Allevating Factors: Nothing Associated Signs And Symptoms: Visual Changes - blurred vision, Other (Noted In Comments) - NEG: nausea, dizziness, lightheadedness, neck pain, neck stiffness, fever, chills, abd cramping, vaginal bleeding, vaginal discharge, LE swelling - Allergies/Home Medications Allergies/Adverse Reactions: Allergies Allergy/AdvReac Type Severity Reaction Status Date / Time No Known Allergies Allergy Verified 11/06/17 11:48 Home Medications: Home Medications Fluticasone NASAL SPRAY 50MCG* [Flonase NASAL SPRAY 50MCG*] 2 spray BOTH NARES DAILY 11/06/17 [History Confirmed 11/06/17] Sertraline* [Zoloft*] 200 mg PO QAM 11/06/17 [History Confirmed 11/06/17] PMH/Surg Hx/FS Hx/Imm Hx Endocrine/Hematology History: Denies: Hx Anticoagulant Therapy, Hx Diabetes, Hx Thyroid Disease Cardiovascular History: Denies: Hx Hypertension Respiratory History: Denies: Hx Asthma, Hx Chronic Obstructive Pulmonary Disease (COPD) GI History: Denies: Hx Ulcer Sensory History: Denies: Hx Contacts or Glasses, Hx Hearing Aid Opthamlomology History: Denies: Hx Contacts or Glasses Psychiatric History: Reports: Hx Anxiety, Hx Eating Disorder - binge eating D/O , Hx Depression, Hx Community Mental Health Tx, Hx of Violent Episodes Against Others Denies: Hx Inpatient Treatment, Hx Suicide Attempt - Surgical History Surgery Procedure, Year, and Place: D&C 2015 Infectious Disease History: No Infectious Disease History: Denies: Hx Clostridium Difficile, Hx Hepatitis, Hx Human Immunodeficiency Virus (HIV), Hx of Known/Suspected MRSA, Hx Shingles, Hx Tuberculosis, Hx Known/ Suspected VRE, Hx Known/Suspected VRSA, History Other Infectious Disease, Traveled Outside the [place] in Last 30 Days - Family History Known Family History: Positive: Hypertension, Respiratory Disease - asthma Negative: Cardiac Disease, Diabetes - Social History Alcohol Use: Occasionally Hx Substance Use: No Substance Use Type: Reports: None Hx Tobacco Use: No Smoking Status (MU): Never Smoked Tobacco Have You Smoked in the Last Year: No Review of Systems Negative: Fever, Chills Positive: Blurred Vision Negative: Abdominal Pain, Vomiting, Nausea Negative: discharge, other - vaginal bleeding Negative: Edema, Other - neck pain, neck stiffness Neurological: Other - NEG: lightheadedness All Other Systems Reviewed And Are Negative: Yes Physical Exam - Summary Physical Exam Summary: VITAL SIGNS: Reviewed. GENERAL: Patient is a well-developed and nourished female who is lying comfortable in the stretcher. Patient is not in any acute respiratory distress. HEAD AND FACE: No signs of trauma. No ecchymosis, hematomas or skull depressions. No sinus tenderness. EYES: PERRLA, EOMI x 2, No injected conjunctiva, no nystagmus. EARS: Hearing grossly intact. Ear canals and tympanic membranes are within normal limits. MOUTH: Oropharynx within normal limits. NECK: Supple, trachea is midline, no adenopathy, no JVD, no carotid bruit, no c- spine tenderness, neck with full ROM. No meningeal signs. No neck stiffness. CHEST: Symmetric, no tenderness at palpation LUNGS: Clear to auscultation bilaterally. No wheezing or crackles. CVS: Regular rate and rhythm, S1 and S2 present, no murmurs or gallops appreciated. ABDOMEN: Soft, non-tender. No signs of distention. No rebound no guarding, and no masses palpated. Bowel sounds are normal. EXTREMITIES: FROM in all major joints, no edema, no cyanosis or clubbing. No lower extremity edema. NEURO: Alert and oriented x 3. No acute neurological deficits. Speech is normal and follows commands. SKIN: Dry and warm Triage Information Reviewed: Yes Vital Signs On Initial Exam: Initial Vitals Temp Pulse Resp BP Pulse Ox 97.9 F 114 18 132/74 97 11/06/17 11:48 11/06/17 11:48 11/06/17 11:48 11/06/17 11:48 11/06/17 11:48 Vital Signs Reviewed: Yes Diagnostics - Vital Signs Vital Signs Temp Pulse Resp BP Pulse Ox 11/06/17 11:48 97.9 F 114 18 132/74 97 - Laboratory Result Diagrams: 11/06/17 12:23 11/06/17 12:23 Lab Statement: Any lab studies that have been ordered have been reviewed, and results considered in the medical decision making process. Re-Evaluation - Re-Evaluation First Eval Re-Evaluation Time: 15:42 Change: Improved Comment: I reviewed the lab results with the pt. Headache has resolved and pt is feeling better. She will be discharged home. Headache Course/Dx - Course Assessment/Plan: Patient is a 22 y/o female, currently 24 weeks , who presents to the ED via ambulance c/o headache for the past week. She reports associated blurry vision. Patient saw her synchronizer and was told she was near sighted. She denies neck pain, neck stiffness, fever, chills, abdominal cramping, vaginal bleeding or discharge. On physical exam pt has no meningeal signs and no neck stiffness. She has no lower extremity swelling. Test results without any significant abnormalities except for hemoglobin of 10.3 , hematocrit of 31, ESR of 91, sodium of 135. In the ED course the patient was given IV fluids, Benadryl, Reglan, and Tylenol. After these medications the patients headache resolved. She states she is feeling better. heart tone is 140 bpm. Therefore patient will be discharged home with follow up from her ObGYN. Patient was instructed to return to the emergency room immediately if any of the symptoms return or worsens. Plan of care was discussed with the patient and understands and agrees. All questions were answered at patient satisfaction. There were no further complaints or concerns. Pt is hemodynamically stable, alert and oriented x3. - Diagnoses Provider Diagnoses: Headache Discharge - Sign-Out/Discharge Documenting (check all that apply): Discharge/Admit/Transfer - Discharge - Discharge Plan Condition: Stable Disposition: HOME Patient Education Materials: General Headache (ED) Referrals: Oziel Bailey NP [Primary Care Provider] - [facility] [Provider Group] (Address: [address] [place] [address] ) Additional Instructions: Please follow up with your ObGYN. RETURN TO THE ED FOR ANY NEW OR WORSENING SYMPTOMS. The documentation as recorded by the Abelardo hernandez Angela accurately reflects the service I personally performed and the decisions made by , Tarik Mendoza MD.
== END 2017-11-06 16:21 | disposition home or self-care (01) ==
LOC: ED 11:45
DX: O26.892 Other specified pregnancy related conditions, second trimester (principal); R51 Headache; H53.8 Other visual disturbances; Z3A.24 24 weeks gestation of pregnancy; F41.9 Anxiety disorder, unspecified; F32.9 Major depressive disorder, single episode, unspecified
CPT/HCPCS: 36415; 80053; 81003; 81015; 85025; 85652; 87077; 87086; 96374; 96375; 99283; A9270-GY; J1200; J2765

== ENCOUNTER 2018-02-19 11:38 | Inpatient (IN) | payer OTHER ==
[2018-02-19] MEDS ORDERED: Penicillin G Potassium IV* 5,000,000 UNITS in NS 0.9% 100 ML* 100 ML IVPB ONE (12:20)
[2018-02-19] MEDS ORDERED: Oxytocin in LR* 20 UNITS/1,000 ML BAG IVPB SCH (13:00)
[2018-02-19 13:01] LABS: ABS Basophils 0 10^3/ul (0-0.2); ABS Eosinophils 0.1 10^3/ul (0-0.6); ABS Lymphocytes 0.9 10^3/ul (1.0-4.8); ABS Monocytes 0.6 10^3/ul (0-0.8); ABS Neutrophils 3.9 10^3/ul (1.5-7.7); ABS Nucleated RBC 0 10^3/ul; Eosinophil % 2.1 % (0-6); Hematocrit 30 % (35-47); Hemoglobin 10.2 g/dl (12.0-16.0); Lymphocyte % 15.8 % (25-47); Mean Corpuscular HGB Conc 34 g/dl (31-36); Mean Corpuscular Hemoglobin 27 pg (27-31); Mean Corpuscular Volume 79 fL (80-97); Nucleated Red Blood Cells % 0.1; Platelet Count 171 10^3/ul (150-450); Red Blood Count 3.84 10^6/ul (4.00-5.40); Red Cell Distribution Width 16 % (10.5-15); White Blood Count 5.4 10^3/ul (3.5-10.8)
[2018-02-19] MEDS ORDERED: Acetaminophen TAB* 325 MG PO PRN (16:25)
--- NOTE | 2018-02-19 16:31 | HP ---
General Information - Reason for Visit Induction at term - General Information Maternal Age: 22 Grav: 4 Para: 2 SAB: 1 IEA: 0 Estimated Due Date: 02/26/18 Determined By: LMP Maternal Blood Type and Rh: O Positive - Results this Serology/RPR Result: Non-Reactive Rubella Result: Immune HBsAg Result: Negative HIV Result: Negative GBS Culture Result: Positive Past Medical History Delivery History: Hx Complicated Vaginal Delivery - retained placenta & pph x2, See Records Pertinent Past Medical History: See Records - depression/anxiety/ suicidal ideation in 1st trimester Pertinent Past Surgical History: See Records Pertinent Family History: Non-Contributory - Antepartal Records Antepartal Records: Reviewed, Uncomplicated Review of Systems Constitutional: Comfortable CV Complaint: No Respiratory: Shortness of Breath: No Gastrointestinal: No Nausea/Vomiting, Normal Bowel Movement Genitourinary: No Dysuria, No Bleeding, No Leaking Fluid Musculoskeletal: No Complaint Neurological: No Headache Movement: Normal Exam Allergies/Adverse Reactions: Allergies No Known Allergies Allergy (Verified 11/06/17 11:48) WNL Lab Values - Entire Visit: Laboratory Tests 02/19/18 02/19/18 12:40 12:40 WBC 5.4 RBC 3.84 L Hgb 10.2 L Hct 30 L MCV 79 L MCH 27 MCHC 34 RDW 16 H Plt Count 171 MPV 8.0 Neut % (Auto) 71.3 Lymph % (Auto) 15.8 L Dale % (Auto) 10.4 H Eos % (Auto) 2.1 Baso % (Auto) 0.4 Absolute Neuts (auto) 3.9 Absolute Lymphs (auto) 0.9 L Absolute Monos (auto) 0.6 Absolute Eos (auto) 0.1 Absolute Basos (auto) 0 Absolute Nucleated RBC 0 Nucleated RBC % 0.1 Blood Type O Positive Antibody Screen Negative - Measurements Height: 5 ft 5 in Weight: 235 lb Weight in lbs: 235.232900 Body Mass Index (BMI): 39.1 Pre- Weight: 195 lb Weight Gained This : 40 lbs and 0 ozs - Exam Breast: Breast Exam Deferred Extremities: No Edema Heart: Normal Rhythm/Heart Sounds HEENT: No Significant Findings - Abdominal Exam Abdomen Exam: Non-Tender - Ultrasound/Biophysical Profile Ultrasound Status: Not Done Targeted Exam Findings Cervical Exam: 2cm Effacement: 60% Station: -2 Presenting Part: Vertex Membrane Status: Intact EFM Findings - External Monitor Findings Baseline Heart Rate: 135 External Monitor Findings: Accelerations Present, No Pattern of Variable or Late Decelerations, Variability Moderate, Baseline Stable Contractions: None Assessment/Plan - Assessment @39wks with h/o retained placenta and manual removal x2 and delayed pph with more retained placenta 1wk post- leading to D&C and 2U PRBC after 2nd delivery. - Obstetrical Risk Factors Obstetrical Risk Factors: GBS Positive Risk Factors Comment: h/o retained placenta and pph - Plan Plan: Induction, Antibiotic Prophylaxis
[2018-02-19] MEDS ORDERED: Acetaminophen TAB* 325 MG ONE (16:36)
[2018-02-19] MEDS: Penicillin G Potassium IV* 2,500,000 UNITS in NS 0.9% 100 ML* 100 ML IVPB SCH ×2 (17:23→21:43)
[2018-02-19] MEDS ORDERED: OBEPIDURAL* 250 ML EPIDURAL ONE (20:24)
[2018-02-19] MEDS ORDERED: Famotidine TAB* 20 MG PO PRN (21:58)
[2018-02-19] MEDS ORDERED: Sodium Citrate/Citric Acid* 15 ML UDC PO PRN (21:58)
[2018-02-19] MEDS ORDERED: Phenylephrine IV* 40 MCG/ML 10 ML SYRINGE IV PUSH PRN ×2 (21:58)
[2018-02-19] MEDS ORDERED: OBEPIDURAL* 250 ML EPIDURAL SCH (22:00)
[2018-02-20] MEDS: Penicillin G Potassium IV* 2,500,000 UNITS in NS 0.9% 100 ML* 100 ML IVPB SCH (02:08)
[2018-02-20] MEDS ORDERED: GENTAMICIN ADULT IVPB STA (03:23)
[2018-02-20] MEDS ORDERED: NS 0.9% IVPB STA (03:23)
[2018-02-20] MEDS: Ampicillin IV* 2 GM in NS 0.9% 50 ML* 50 ML IV SCH ×4 (03:55→21:40)
[2018-02-20] MEDS ORDERED: Misoprostol TAB* 200 MCG ONE (04:33)
[2018-02-20] MEDS ORDERED: Witch Hazel PAD* JAR TOPICAL PRN (04:43)
[2018-02-20] MEDS ORDERED: Glycerin ADULT SUPP PR PRN (04:43)
[2018-02-20] MEDS ORDERED: Misoprostol TAB* 200 MCG PR ONE (04:43)
[2018-02-20] MEDS ORDERED: Dibucaine 1% 28.35 GM TUBE PR PRN (04:43)
--- NOTE | 2018-02-20 04:56 | PROCNOTE ---
[facility] OB: Delivery Note - Delivery A Date of : 02/20/18 Time of : 04:16 [place] Sex: Female Score 1 Minute: 7 Score 5 Minutes: 8 Gestational Age in Weeks and Days at Delivery: 39 Weeks and 1 Days Delivery Method: Spontaneous Vaginal Labor: Induced Did Patient attempt ?: N/A, No Previous Amniotic Fluid: Clear Estimated Blood Loss: 350 Anesthesia/Analgesia: CEI for Labor Anesthesia Comment: Dr. Will Delivered By: Nancy Chahal - covering for Dr. Spencer - Perineum Perineal Injury: None/Intact Perineal Repair: None - Events Delivery Events of Note: Pitocin During Labor, Chorio in Labor, Maternal Temperature during Labor, Full Course of Antibiotics - Additional Delivery Notes Additional Delivery Notes: Pt admitted for term induction of labor due to history of retained placenta with two previous deliveries. IV pitocin and amniotomy to clear fluid resulted in onset active labor with expected progression to complete. Labor course complicated by maternal temperature and IV antibiotics for suspected chorioamnionitis. Length of labor 10 hours, 49 min. Pushed x 4 min. liveborn female. Slow, controlled delivery of head. OA to ADIA. Tight nuchal cord x 1. [place] somersaulted through. vigorous, HR>110bpm without spontaneous cry. Apgars 7/8. Cord clamped x 2 and cut by FOB. [place] to warmer for evaluation by special care nurse. Spontaneous delivery intact placenta after 3 min second stage. Appeared complete. Fundus firm to massage and remained firm with IV pitocin infusing and 800mcg Cytotec per rectum x 1. Perineum intact. No repair needed as above. EBL 350mL. At time of note mother in stable condition. to nursery for further evaluation. Will continue antibiotics per MD orders. Note: Post delivery Dr. Spencer assessed placenta and agreed that it appeared complete. Will continue to monitor closely for bleeding given pt history
[2018-02-20] MEDS ORDERED: Oxytocin in LR* 20 UNITS/1,000 ML BAG IVPB SCH (05:00)
[2018-02-20] MEDS ORDERED: Simethicone TAB* 80 MG TAB.CHEW PO SCH (08:30)
[2018-02-20] MEDS ORDERED: Sertraline* 100 MG TAB PO SCH (09:00)
[2018-02-20] MEDS ORDERED: Ampicillin IV* 1 GM VIAL ONE (10:03)
[2018-02-20] MEDS: Ibuprofen TAB* 600 MG PO PRN ×2 (12:15→18:16)
[2018-02-20] MEDS: Docusate CAP* 100 MG PO SCH ×3 (12:15→21:40)
[2018-02-20] MEDS: Acetaminophen TAB* 325 MG PO PRN (18:15)
[2018-02-21] MEDS: Sertraline* 100 MG TAB PO SCH ×2 (00:58→23:40)
[2018-02-21] MEDS: Ampicillin IV* 2 GM in NS 0.9% 50 ML* 50 ML IV SCH ×2 (04:26→10:11)
[2018-02-21] MEDS: Acetaminophen TAB* 325 MG PO PRN ×3 (04:33→20:54)
[2018-02-21] MEDS: Ibuprofen TAB* 600 MG PO PRN ×3 (04:33→20:54)
[2018-02-21 07:23] LABS: ABS Basophils 0 10^3/ul (0-0.2); ABS Eosinophils 0.4 10^3/ul (0-0.6); ABS Lymphocytes 1.7 10^3/ul (1.0-4.8); ABS Neutrophils 3.6 10^3/ul (1.5-7.7); ABS Nucleated RBC 0 10^3/ul; Eosinophil % 5.7 % (0-6); Hematocrit 29 % (35-47); Hemoglobin 9.8 g/dl (12.0-16.0); Lymphocyte % 25.4 % (25-47); Mean Corpuscular HGB Conc 33 g/dl (31-36); Mean Corpuscular Hemoglobin 27 pg (27-31); Mean Corpuscular Volume 79 fL (80-97); Mean Platelet Volume 8.1 um3 (7.4-10.4); Nucleated Red Blood Cells % 0; Platelet Count 169 10^3/ul (150-450); Red Blood Count 3.69 10^6/ul (4.00-5.40); Red Cell Distribution Width 16 % (10.5-15); White Blood Count 6.8 10^3/ul (3.5-10.8)
[2018-02-21] MEDS ORDERED: Ampicillin IV* 1 GM VIAL ONE (08:58)
[2018-02-21] MEDS: Ferrous Gluconate TAB* 324 MG TAB PO SCH ×2 (10:59→20:55)
[2018-02-21] MEDS: Docusate CAP* 100 MG PO SCH ×3 (10:59→20:55)
[2018-02-22 00:23] VITALS: BP 126/71
[2018-02-22] MEDS: Ferrous Gluconate TAB* 324 MG TAB PO SCH (08:15)
[2018-02-22] MEDS: Docusate CAP* 100 MG PO SCH (08:15)
[2018-02-22] MEDS: Acetaminophen TAB* 325 MG PO PRN (08:16)
[2018-02-22] MEDS: Ibuprofen TAB* 600 MG PO PRN (08:16)
== END 2018-02-22 11:10 | disposition home or self-care (01) | DRG 560 ==
LOC: MCHOBOUT 11:38 → MCHOB 12:17
PROVIDERS: ADMIT Obstetrics & Gynecology; ATTEND Midwife
PROC: 10907ZC Drainage of Amniotic Fluid, Therapeutic from Products of Conception, Via Natural or Artificial Opening (ICD-10-PCS; principal; 2018-02-20)
PROC: 3E033VJ Introduction of Other Hormone into Peripheral Vein, Percutaneous Approach (ICD-10-PCS; 2018-02-20)
PROC: 10E0XZZ Delivery of Products of Conception, External Approach (ICD-10-PCS; 2018-02-20)
PROC: 4A1HXCZ Monitoring of Products of Conception, Cardiac Rate, External Approach (ICD-10-PCS; 2018-02-20)
DX: O69.1XX0 Labor and delivery complicated by cord around neck, with compression, not applicable or unspecified (principal); O41.1230 Chorioamnionitis, third trimester, not applicable or unspecified; O99.824 Streptococcus B carrier state complicating childbirth; O99.344 Other mental disorders complicating childbirth; F41.9 Anxiety disorder, unspecified; F32.9 Major depressive disorder, single episode, unspecified; Z3A.39 39 weeks gestation of pregnancy; Z37.0 Single live birth
CPT/HCPCS: 36415; 85025; 86850; 86900; 86901; 88307; A9270-GY; J0290; J1580; J2540

== ENCOUNTER 2018-02-25 20:31 | Emergency (ER) | payer OTHER ==
[2018-02-25] MEDS ORDERED: NS 0.9% 1000 ML*IV.FLUID IV ONE (20:50)
--- NOTE | 2018-02-25 21:01 | ED ---
HPI Febrile Illness - HPI Summary HPI Summary: This patient is a 22 year old F presenting to [facility] with a chief complaint of a fever that began earlier today and has gotten higher. Pt had a vaginal on 02-20-18 and was told to come in for fever. The patient rates the pain 5/10 in severity. Patient reports neck pain, lower back pain, VIZCARRA, dry cough, and uterine pain. Patient denies unusual vaginal discharge, sore throat, rhinorrhea , CP, and SOB. with hx or retained placenta. - History of Current Complaint Chief Complaint: EDFever Time Seen by Provider: 02/25/18 20:46 Hx Obtained From: Patient Hx Last Menstrual Period: 04/24/17 Onset/Duration: Started Hours Ago, Still Present Timing: Constant Current Severity: None Pain Intensity: 5 Pain Scale Used: 0-10 Numeric Associated Signs and Symptoms: Negative - unusual vaginal discharge, sore throat , rhinorrhea, CP, and SOB - Additional Pertinent History Primary Care Physician: CLEMENT - Allergy/Home Medications Allergies/Adverse Reactions: Allergies Allergy/AdvReac Type Severity Reaction Status Date / Time No Known Allergies Allergy Verified 11/06/17 11:48 PMH/Surg Hx/FS Hx/Imm Hx Endocrine/Hematology History: Denies: Hx Anticoagulant Therapy, Hx Diabetes, Hx Thyroid Disease Cardiovascular History: Denies: Hx Hypertension Respiratory History: Denies: Hx Asthma, Hx Chronic Obstructive Pulmonary Disease (COPD) GI History: Denies: Hx Ulcer Sensory History: Denies: Hx Contacts or Glasses, Hx Hearing Aid Opthamlomology History: Denies: Hx Contacts or Glasses Psychiatric History: Reports: Hx Anxiety, Hx Eating Disorder - binge eating D/O , Hx Depression - Hospitalized for suicidal ideation, Hx Community Mental Health Tx, Hx of Violent Episodes Against Others Denies: Hx Inpatient Treatment, Hx Suicide Attempt - Surgical History Surgery Procedure, Year, and Place: D&C 2015 Infectious Disease History: No Infectious Disease History: Denies: Hx Clostridium Difficile, Hx Hepatitis, Hx Human Immunodeficiency Virus (HIV), Hx of Known/Suspected MRSA, Hx Shingles, Hx Tuberculosis, Hx Known/ Suspected VRE, Hx Known/Suspected VRSA, History Other Infectious Disease, Traveled Outside the [place] in Last 30 Days - Family History Known Family History: Positive: Hypertension, Respiratory Disease - asthma Negative: Cardiac Disease, Diabetes - Social History Alcohol Use: None Hx Substance Use: No Substance Use Type: Reports: None Hx Tobacco Use: No Smoking Status (MU): Never Smoked Tobacco Have You Smoked in the Last Year: No Review of Systems Positive: Fever Negative: Sore Throat, Nasal Discharge Negative: Chest Pain Positive: Cough. Negative: Shortness Of Breath Genitourinary: Negative - unusual vaginal discharge, , Other - uterus pain Positive: Other - neck pain, lower back pain Positive: Headache All Other Systems Reviewed And Are Negative: Yes Physical Exam - Summary Physical Exam Summary: Appearance: Well-appearing, Well-nourished, lying in bed comfortably Skin: Warm, dry, no obvious rash Eyes: sclera anicteric, no conjunctival pallor ENT: mucous membranes moist, pharynx appears normal Neck: Supple, nontender Respiratory: Clear to auscultation, no signs of respiratory distress Cardiovascular: tachycardia. S1, S2. No murmurs. Normal distal pulses in tibial and radial bilaterally. Abdomen: Soft, nontender, normal active bowel sounds present Musculoskeletal: Normal, Strength/ROM Intact Neurological: A&Ox3, awake and alert, mentation is normal, speech is fluent and appropriate Psychiatric: affect is normal, does not appear anxious or depressed Triage Information Reviewed: Yes Vital Signs On Initial Exam: Initial Vitals Temp Pulse Resp BP Pulse Ox 99.1 F 143 20 141/91 95 02/25/18 20:45 02/25/18 20:45 02/25/18 20:45 02/25/18 20:45 02/25/18 20:45 Vital Signs Reviewed: Yes Diagnostics - Vital Signs Vital Signs Temp Pulse Resp BP Pulse Ox 02/25/18 20:45 99.1 F 143 20 141/91 95 - Laboratory Result Diagrams: 02/25/18 21:04 02/25/18 21:04 Lab Statement: Any lab studies that have been ordered have been reviewed, and results considered in the medical decision making process. - Radiology CXR Radiology Interpretation Completed By: ED Physician - no active cardiopulmonary disease. pending official report. - Ultrasound No standard instances Ultrasound Interpretation Completed By: Radiologist - Pelvic US reveals, per radiologist, 1. Inhomogeneous thickening of the endometrium can be seen with endometritis. 2. Otherwise normal pelvic ultrasound. ED physician has reviewed this radiology report. Course/Dx - Diagnoses Provider Diagnoses: Endometritis - Provider Notifications Discussed Care Of Patient With: Ash Pelayo Time Discussed With Above Provider: 00:54 Instructed by Provider To: Other - He recommened augmentin and outpatient treatment. Discharge - Sign-Out/Discharge Documenting (check all that apply): Patient Departure - Discharge Plan Condition: Good Disposition: HOME Prescriptions: Amoxicillin/Clavulanate TAB* [Augmentin TAB 875*] 875 mg PO BID #20 tab Patient Education Materials: Endometritis (ED) Referrals: Lavern Spencer MD [Medical Doctor] - 1 Day - Billing Disposition and Condition Condition: GOOD Disposition: Home - Attestation Statements Document Initiated by Scribe: Yes Documenting Scribe: Andrew Zavala Provider For Whom Scribe is Documenting (Include Credential): Hank Lomax MD Scribe Attestation: Andrew Hatfield , scribed for Hank Lomax MD on 03/01/18 at 1829. Scribe Documentation Reviewed: Yes Provider Attestation: The documentation as recorded by the Andrew hernandez accurately reflects the service I personally performed and the decisions made by me, Hank Lomax MD
[2018-02-25 21:22] LABS: ABS Basophils 0.1 10^3/ul (0-0.2); ABS Eosinophils 0.2 10^3/ul (0-0.6); ABS Lymphocytes 1.4 10^3/ul (1.0-4.8); ABS Monocytes 1.4 10^3/ul (0-0.8); ABS Neutrophils 11.3 10^3/ul (1.5-7.7); ABS Nucleated RBC 0 10^3/ul; Eosinophil % 1.3 % (0-6); Hematocrit 32 % (35-47); Hemoglobin 10.6 g/dl (12.0-16.0); Mean Corpuscular HGB Conc 33 g/dl (31-36); Mean Corpuscular Hemoglobin 26 pg (27-31); Mean Corpuscular Volume 79 fL (80-97); Mean Platelet Volume 7.4 um3 (7.4-10.4); Nucleated Red Blood Cells % 0; Platelet Count 276 10^3/ul (150-450); Red Cell Distribution Width 16 % (10.5-15); White Blood Count 14.5 10^3/ul (3.5-10.8)
[2018-02-25 21:34] LABS: EGFR Non-African American 116.1 (>60)
[2018-02-25] MEDS ORDERED: Gentamicin ADULT (*) 40 MG/ML VIAL IVPB ONE (22:01)
--- NOTE | 2018-02-25 22:12 | RAD ---
EXAM: US Pelvis Complete, Transabdominal CLINICAL HISTORY: 22 years old, female; Pain; Pelvic pain; Patient HX: 5 days post ; Additional info: Fever 5 d post , pelvic pain, bleeding TECHNIQUE: Real-time transabdominal pelvic ultrasound (complete) with image documentation. COMPARISON: No relevant prior studies available. FINDINGS: Uterus/cervix: Uterus measures 15.4 x 6.4 x 12.2 cm. Inhomogeneous thickening of the endometrium measuring 20.9 mm. No myometrial mass. Right ovary: Right ovary measures 3.4 x 2.0 x 3.7 cm. Normal blood flow. Left ovary: Left ovary measures 3.2 x 1.4 x 2.1 cm. Normal blood flow. Free fluid: No free fluid. IMPRESSION: 1. Inhomogeneous thickening of the endometrium can be seen with endometritis. 2. Otherwise normal pelvic ultrasound.
[2018-02-25] MEDS ORDERED: Gentamicin ADULT (*) 110 MG in NS 0.9% 100 ML* 100 ML IVPB STA (22:21)
[2018-02-25 23:23] LABS: Urine Appearance Cloudy; Urine Blood 3+ (Negative); Urine Color Yellow; Urine Ketones Negative (Negative); Urine Protein Negative (Negative); Urine Red Blood Cell Trace(0-2/hpf) (Absent); Urine Urobilinogen Negative (Negative); Urine White Blood Cell 1+(6-10/hpf) (Absent)
[2018-02-26 01:21] VITALS: BP 116/81
--- NOTE | 2018-02-26 07:53 | RAD ---
Indication: Cough, fever. 2 views of the chest including dual energy PA views demonstrate no mediastinal shift. Heart is of normal size and configuration. Lung ching are clear. IMPRESSION: No active cardiopulmonary disease is noted.
--- NOTE | 2018-02-28 07:04 | PN ---
Progress Note - Progress Note Date of Service: 02/25/18 Note: Pt. seen in ER 02/25 for fever after vaginal . Urine culture today is growing trace GBS. She was placed on Augmentin at or. No change in treatment needed at this time.
== END 2018-02-26 01:19 | disposition home or self-care (01) ==
LOC: ED 20:31
DX: R50.9 Fever, unspecified (principal); R05 Cough; M54.2 Cervicalgia; R51 Headache; M54.5 Low back pain
CPT/HCPCS: 36415; 71046; 76856; 80053; 81003; 81015; 83605; 85025; 86140; 87040; 87077; 87086; 99282; J1580

== ENCOUNTER 2018-09-27 05:19 | Emergency (ER) | payer OTHER ==
[2018-09-27] MEDS ORDERED: LORazepam INJ* 2 MG/ML 1 ML VIAL IV PUSH ONE (05:41)
[2018-09-27] MEDS ORDERED: NS 0.9% 1000 ML** 1,000 ML IV ONE (05:41)
--- OUTSIDE RECORDS SUMMARY | 2018-09-27 05:48 | XMS REPORT | Continuity of Care Document ---
:1995 External Reference #:[id number] Author Name Mag Loriegie Care Team Providers Name Role Phone Oziel Bailey NP Primary Care Physician Unavailable Payers Date Identification Numbers Payment Provider Subscriber Expires: 2016 Policy Number: [id number] [employer] Lissette Spivey Group Name: [id number] [address] [address] PayID: [id number] [place] [address] Effective: 2013 Policy Number: [employer] Lissette Spivey [id number] Expires: 2013 PayID: [id number] [address] [address] [place] [address] Effective: 2016 Policy Number: [id number] Javed Spivey Group Name: [id number] [address] PayID: [id number] [place] [address] Advance Directives Description No Information Available Problems Date Description Provider Status Onset: 04/23/2017 Depressive disorder Oziel Bailey NP Active Onset: 04/23/2017 Anxiety Oziel Bailey NP Active Family History Date Family Member(s) Observation Comments General Asthma brother Mother 40 Children 1 Social History Type Date Description Comments Sex Unknown Marital Status Lives With Occupation Currently Working works at [employer] ETOH Use Denies alcohol use ETOH Use Occasionally consumes alcohol Tobacco Use Start: Unknown Patient has never smoked Recreational Drug Use Denies Drug Use Smoking Status Reviewed: 09/10/18 Patient has never smoked Exercise Type/Frequency Does not exercise Exercise Type/Frequency 3 young children Allergies, Adverse Reactions, Alerts Description No Known Drug Allergies Medications Medication Date Status Form Strength Qnty SIG Indications Ordering Provider Omeprazole 08/02/ Active Capsules DR 40mg 30caps 1 by R10.9 Oziel 2019 mouth Lynn, [employer] every day Fluticasone 10/18/ Active Suspension 50mcg/Act 16unit 2 sprays J30.89 Oziel Propionate 2018 s each Lynn, [employer] nostril qd.(pt not using) Sertraline HCL / Active Tablets 100mg 2 by Unknown 0000 mouth every day Omeprazole 07/13/ Hx Capsules DR 20mg 30caps 1 by R10.9 Oziel 2018 - mouth Lynn [employer] 08/02/ once 2019 daily Naphcon-A 10/18/ Hx Solution 0.025-0.3% 10ml 1-2 drops J30.89 Oziel 2018 - into ERICK Bailey 07/12/ affected 2019 eye 4 times daily as needed. Escitalopram 04/17/ Hx Tablets 10mg 30tabs 1 tablet F32.89 Oziel Oxalate 2016 - daily (pt ERICK Bailey 10/07/ not 2018 taking) Naproxen / Hx Tablets 500mg 60tabs Take 1 Ced 0000 - tab every F 04/17/ 12 hours Carmen, 2016 as needed for pain Amoxicillin / Hx Tablets 875mg [place], 0000 - MD Thai 2016 Immunizations CPT Code Status Date Vaccine Lot # [id number] Given 05/06/2014 Flu Vaccine Split Virus Preservative Free For Indiv [id number] 3Yr Older 08979 Given 04/13/2010 Hepatitis A Vaccine Pediatric/Adolescent Dosage 2 Dose Schedule 68730 Given 07/03/2009 Meningitis MCV4 MenACWY Meningococcal Conjugate Vaccine 88561 Given 04/08/2009 Hepatitis A Vaccine Pediatric/Adolescent Dosage 2 Dose Schedule 67104 Given 10/02/2008 Gardasil (HPV) 61282 Given 09/18/2008 Gardasil (HPV) 84837 Given 03/26/2008 Varicella (Chicken Pox) Immunization 55892 Given 03/20/2008 Gardasil (HPV) 59032 Given 08/31/2006 Tdap - Tetanus/Diptheria/Acellular Pertussis 65957 Given 08/31/2006 Gardasil (HPV) 39425 Given 08/11/2006 Tdap - Tetanus/Diptheria/Acellular Pertussis 91872 Given 08/18/1998 DTaP Vaccine Younger Than 7 74486 Given 08/18/1998 Measles Mumps And Rubella MMR 80517 Given 08/18/1998 IPV/Poliomyelitis Immunization 86402 Given 08/22/1996 Varicella (Chicken Pox) Immunization 33929 Given 12/22/1994 IPV/Poliomyelitis Immunization 67644 Given 12/22/1994 Measles Mumps And Rubella MMR 04230 Given 12/22/1994 DTaP Vaccine Younger Than 7 52261 Given 02/24/1994 IPV/Poliomyelitis Immunization 45496 Given 02/24/1994 DTaP Vaccine Younger Than 7 73691 Given 1993 Hep B Pediatric/Adolescent 19320 Given 1993 IPV/Poliomyelitis Immunization 33672 Given 1993 DTaP Vaccine Younger Than 7 78887 Given 1993 Hep B Pediatric/Adolescent 08245 Given 1993 IPV/Poliomyelitis Immunization 58175 Given 1993 DTaP Vaccine Younger Than 7 57759 Given 1993 Hep B Pediatric/Adolescent Vital Signs Date Vital Result Comment 09/10/2018 1:22pm Height 60 inches 5'0" Weight 229.00 lb with clothes/shoes Heart Rate 84 /min radial BP Systolic Sitting 130 mmHg Lue lg cuff BP Diastolic Sitting 60 mmHg Lue lg cuff BP Systolic Standing 124 mmHg Lue lg cuff BP Diastolic Standing 60 mmHg Lue lg cuff BMI (Body Mass Index) 44.7 kg/m2 08/02/2018 1:58pm Height 65 inches 5'5" Weight 231.00 lb Heart Rate 90 /min BP Systolic Sitting 127 mmHg BP Diastolic Sitting 74 mmHg O2 % BldC Oximetry 98 % BMI (Body Mass Index) 38.4 kg/m2 07/13/2018 9:43am Height 65 inches 5'5" Weight 232.00 lb Heart Rate 92 /min BP Systolic 118 mmHg BP Diastolic 80 mmHg Body Temperature 97.5 F O2 % BldC Oximetry 97 % BMI (Body Mass Index) 38.6 kg/m2 10/18/2017 11:13am Height 65 inches 5'5" Weight 224.50 lb Heart Rate 105 /min BP Systolic 106 mmHg BP Diastolic 66 mmHg Body Temperature 97.7 F O2 % BldC Oximetry 97 % BMI (Body Mass Index) 37.4 kg/m2 06/14/2017 11:38am Height 65 inches 5'5" Weight 213.00 lb Heart Rate 101 /min BP Systolic Sitting 120 mmHg BP Diastolic Sitting 66 mmHg Respiratory Rate 14 /min O2 % BldC Oximetry 98 % BMI (Body Mass Index) 35.4 kg/m2 05/15/2017 10:43am Height 65 inches 5'5" Heart Rate 80 /min BP Systolic Sitting 130 mmHg BP Diastolic Sitting 86 mmHg Body Temperature 98.3 F O2 % BldC Oximetry 98 % 04/17/2017 2:00pm Height 65 inches 5'5" Weight 202.00 lb Heart Rate 97 /min BP Systolic Sitting 120 mmHg BP Diastolic Sitting 72 mmHg O2 % BldC Oximetry 98 % BMI (Body Mass Index) 33.6 kg/m2 12/26/2016 10:54am Height 65 inches 5'5" Weight 193.00 lb BP Systolic 119 mmHg BP Diastolic 74 mmHg Respiratory Rate 16 /min Pain Level 5 BMI (Body Mass Index) 32.1 kg/m2 05/06/2014 11:07am Height 65 inches 5'5" Weight 193.25 lb Heart Rate 90 /min BP Systolic 120 mmHg BP Diastolic 82 mmHg O2 % BldC Oximetry 98 % BMI (Body Mass Index) 32.2 kg/m2 Results Test Date Facility Test Result H/L Range Note Urine Drug 07/28/2018 [facility] Amphetamine Ur None Detected None Detect SCR ED & [address] [address] [phone] Barbiturates Urine Screen None Detected None Detect Benzodiazepine Urine Screen None Detected None Detect Urine Cannabinoids Screen Presumptive Posi <SEE NOTE> Abnormal None Detect 1 Urine Cocaine Screen None Detected None Detect Urine Opiates Screen None Detected None Detect Urine Phencyclidine Screen None Detected None Detect 2 Urinalysis Profile 07/28/2018 [facility] Urine Color Yellow [address] [place] [address] [phone] Urine Appearance Clear Urine Specific [place] 1.054 High 1.010-1.030 Urine pH 6.0 N 5-9 Urine Urobilinogen Negative Negative Urine Ketones Negative Negative Urine Protein Negative Negative Urine Leukocytes Negative Negative Urine Blood Negative Negative Urine Nitrite Negative Negative Urine Bilirubin Negative Negative Urine Glucose Negative Negative Laboratory test 07/28/2018 [facility] Troponin-I 0.01 ng/mL < 0.04 [address] (TnI) [place] [address] [phone] CBC Auto Diff 07/28/2018 [facility] White Blood 5.4 N 3.5- 10.[address] Count 10^3/[place] [address] [phone] Red Blood Count 4.53 10^6/uL N 4.00-5.40 Hemoglobin 11.8 g/dL Low 12.0-16.0 Hematocrit 36 % N 35-47 Mean Corpuscular Volume 79 fL Low 80-97 Mean Corpuscular Hemoglobin 26 pg Low 27-31 Mean Corpuscular HGB Conc 33 g/dL N 31-36 Red Cell Distribution Width 14 % N 10.5-15 Platelet Count 288 10^3/uL N 150-450 Mean Platelet Volume 8.1 fL N 7.4-10.4 Abs Neutrophils 2.8 10^3/uL N 1.5-7.7 Abs Lymphocytes 1.9 10^3/uL N 1.0-4.8 Abs Monocytes 0.5 10^3/uL N 0-0.8 Abs Eosinophils 0.1 10^3/uL N 0-0.6 Abs Basophils 0.1 10^3/uL N 0-0.2 Abs Nucleated RBC 0 10^3/uL Granulocyte % 51.6 % Lymphocyte % 35.3 % Monocyte % 9.6 % Eosinophil % 2.6 % Basophil % 0.9 % Nucleated Red Blood Cells % 0.1 Laboratory test 07/28/2018 [facility] D Dimer 295 ng/mL High Less [address] Quantitative Than 230 [place] [address] [phone] Comp Metabolic 07/28/2018 [facility] Sodium 139 N 135-[address] mmol/[place] [address] [phone] Potassium 3.6 mmol/L N 3.5-5.0 Chloride 105 mmol/L N 101-111 Co2 Carbon Dioxide 27 mmol/L N 22-32 Anion Gap 7 mmol/L N 2-11 Glucose 154 mg/dL High 70-100 Blood Urea Nitrogen 10 mg/dL N 6-24 Creatinine 0.75 mg/dL N 0.51-0.95 BUN/Creatinine Ratio 13.3 N 8-20 Calcium 9.9 mg/dL N 8.6-10.3 Total Protein 7.9 g/dL N 6.4-8.9 Albumin 4.0 g/dL N 3.2-5.2 Globulin 3.9 g/dL N 2-4 Albumin/Globulin Ratio 1.0 N 1-3 Total Bilirubin 0.20 mg/dL N 0.2-1.0 Alkaline Phosphatase 56 U/L N 34-104 Alt 8 U/L N 7-52 Ast 13 U/L N 13-39 Egfr Non- 94.9 >60 Egfr 114.9 >60 5 Laboratory test 07/28/2018 [facility] Troponin-I (TnI) 0.00 ng/ mL <0.04 [address] [place] [address] [phone] HCG < 0.60 mIU/mL 7 TSH (Thyroid Stim Horm) 0.84 mcIU/mL N 0.34-5.60 CBC Auto Diff 07/16/2018 [facility] White Blood 4.9 10^3/uL N 3.5-10.[address] [place] [address] [phone] Red Blood Count 4.51 10^6/uL N 4.00-5.40 Hemoglobin 11.9 g/dL Low 12.0-16.0 Hematocrit 36 % N 35-47 Mean Corpuscular Volume 80 fL N 80-97 Mean Corpuscular Hemoglobin 26 pg Low 27-31 Mean Corpuscular HGB Conc 33 g/dL N 31-36 Red Cell Distribution Width 14 % N 10.5-15 Platelet Count 317 10^3/uL N 150-450 Mean Platelet Volume 8.0 fL N 7.4-10.4 Abs Neutrophils 2.3 10^3/uL N 1.5-7.7 Abs Lymphocytes 2.0 10^3/uL N 1.0-4.8 Abs Monocytes 0.4 10^3/uL N 0-0.8 Abs Eosinophils 0.2 10^3/uL N 0-0.6 Abs Basophils 0 10^3/uL N 0-0.2 Abs Nucleated RBC 0 10^3/uL Granulocyte % 46.6 % Lymphocyte % 41.2 % Monocyte % 8.2 % Eosinophil % 3.1 % Basophil % 0.9 % Nucleated Red Blood Cells % 0 Comp Metabolic Panel 07/16/2018 [facility] Sodium 140 mmol/L N 135-145 [address] [place] [address] [phone] Potassium 3.9 mmol/L N 3.5-5.0 Chloride 106 mmol/L N 101-111 Co2 Carbon Dioxide 26 mmol/L N 22-32 Anion Gap 8 mmol/L N 2-11 Glucose 85 mg/dL N 70-100 Blood Urea Nitrogen 7 mg/dL N 6-24 Creatinine 0.62 mg/dL N 0.51-0.95 BUN/Creatinine Ratio 11.3 N 8-20 Calcium 9.7 mg/dL N 8.6-10.3 Total Protein 7.9 g/dL N 6.4-8.9 Albumin 4.5 g/dL N 3.2-5.2 Globulin 3.4 g/dL N 2-4 Albumin/Globulin Ratio 1.3 N 1-3 Total Bilirubin 0.20 mg/dL N 0.2-1.0 Alkaline Phosphatase 56 U/L N 34-104 Alt 10 U/L N 7-52 Ast 16 U/L N 13-39 Egfr Non- 118.3 >60 Egfr 143.1 >60 8 Laboratory test 07/16/2018 [facility] Lipase < 10 U/L Low 11.0 -82.0 finding [address] [place] [address] [phone] Laboratory test 07/16/2018 [facility] Helico Negative Negative 9 finding [address] [facility] [place] [address] Antigen- [phone] Stool CBC Auto Diff 02/25/2018 [facility] White Blood 14.5 10^3/uL High 3.5-10.[address] [place] [address] [phone] Red Blood Count 4.10 10^6/uL N 4.00-5.40 Hemoglobin 10.6 g/dL Low 12.0-16.0 Hematocrit 32 % Low 35-47 Mean Corpuscular Volume 79 fL Low 80-97 Mean Corpuscular Hemoglobin 26 pg Low 27-31 Mean Corpuscular HGB Conc 33 g/dL N 31-36 Red Cell Distribution Width 16 % High 10.5-15 Platelet Count 276 10^3/uL N 150-450 Mean Platelet Volume 7.4 um3 N 7.4-10.4 Abs Neutrophils 11.3 10^3/uL High 1.5-7.7 Abs Lymphocytes 1.4 10^3/uL N 1.0-4.8 Abs Monocytes 1.4 10^3/uL High 0-0.8 Abs Eosinophils 0.2 10^3/uL N 0-0.6 Abs Basophils 0.1 10^3/uL N 0-0.2 Abs Nucleated RBC 0 10^3/uL Granulocyte % 78.3 % N 38-83 Lymphocyte % 10.0 % Low 25-47 Monocyte % 10.0 % High 0-7 Eosinophil % 1.3 % N 0-6 Basophil % 0.4 % N 0-2 Nucleated Red Blood Cells % 0 Comp Metabolic Panel 02/25/2018 [facility] Sodium 137 mmol/L N 135-[address] [place] [address] [phone] Potassium 3.7 mmol/L N 3.5-5.0 Chloride 104 mmol/L N 101-111 Co2 Carbon Dioxide 23 mmol/L N 22-32 Anion Gap 10 mmol/L N 2-11 Glucose 94 mg/dL N 70-100 Blood Urea Nitrogen 12 mg/dL N 6-24 Creatinine 0.63 mg/dL N 0.51-0.95 BUN/Creatinine Ratio 19.0 N 8-20 Calcium 9.4 mg/dL N 8.6-10.3 Total Protein 7.3 g/dL N 6.4-8.9 Albumin 3.5 g/dL N 3.2-5.2 Globulin 3.8 g/dL N 2-4 Albumin/Globulin Ratio 0.9 Low 1-3 Total Bilirubin 0.20 mg/dL N 0.2-1.0 Alkaline Phosphatase 113 U/L High 34-104 Alt 12 U/L N 7-52 Ast 15 U/L N 13-39 Egfr Non- 116.1 >60 Egfr 140.5 >60 10 Laboratory test 02/25/2018 [facility] C Reactive 66.52 mg/L High <8.[address] [place] [address] [phone] Lactic Acid 1.6 mmol/L N 0.5-2.0 11 Blood Culture SEE RESULT BELOW 12 Urine Culture And 02/25/2018 [facility] Urine SEE RESULT [address] [place] [address] [phone] Comp Metabolic 11/06/2017 [facility] Sodium 135 mmol/L Low 139 -[address] [place] [address] [phone] Potassium 3.9 mmol/L N 3.5-5.0 Chloride 106 mmol/L N 101-111 Co2 Carbon Dioxide 22 mmol/L N 22-32 Anion Gap 7 mmol/L N 2-11 Glucose 82 mg/dL N 70-100 Blood Urea Nitrogen 5 mg/dL Low 6-24 Creatinine 0.43 mg/dL Low 0.51-0.95 BUN/Creatinine Ratio 11.6 N 8-20 Calcium 9.2 mg/dL N 8.6-10.3 Total Protein 7.0 g/dL N 6.4-8.9 Albumin 3.3 g/dL N 3.2-5.2 Globulin 3.7 g/dL N 2-4 Albumin/Globulin Ratio 0.9 Low 1-3 Total Bilirubin 0.20 mg/dL N 0.2-1.0 Alkaline Phosphatase 67 U/L N 34-104 Alt 6 U/L Low 7-52 Ast 12 U/L Low 13-39 Egfr Non- 180.4 >60 Egfr 232.0 >60 14 CBC Auto Diff 11/06/2017 [facility] White Blood 9.0 10^3/uL N 3.5-10.[address] [place] [address] [phone] Red Blood Count 3.77 10^6/uL Low 4.0-5.4 Hemoglobin 10.3 g/dL Low 12.0-16.0 Hematocrit 31 % Low 35-47 Mean Corpuscular Volume 82 fL N 80-97 Mean Corpuscular Hemoglobin 27 pg N 27-31 Mean Corpuscular HGB Conc 33 g/dL N 31-36 Red Cell Distribution Width 15 % N 10.5-15 Platelet Count 243 10^3/uL N 150-450 Mean Platelet Volume 7.5 um3 N 7.4-10.4 Abs Neutrophils 6.6 10^3/uL N 1.5-7.7 Abs Lymphocytes 1.4 10^3/uL N 1.0-4.8 Abs Monocytes 0.7 10^3/uL N 0-0.8 Abs Eosinophils 0.3 10^3/uL N 0-0.6 Abs Basophils 0.1 10^3/uL N 0-0.2 Abs Nucleated RBC 0 10^3/uL Granulocyte % 73.0 % N 38-83 Lymphocyte % 15.5 % Low 25-47 Monocyte % 7.8 % High 0-7 Eosinophil % 2.9 % N 0-6 Basophil % 0.8 % N 0-2 Nucleated Red Blood Cells % 0.1 Laboratory test 11/06/2017 [facility] Erythrocyte Sed 91 mm/Hr High 0-[address] [place] [address] [phone] Urinalysis 11/06/2017 [facility] Urine Color Straw Profile [address] [place] [address] [phone] Urine Appearance Clear Urine Specific [place] 1.004 Low 1.010-1.030 Urine pH 8.0 N 5-9 Urine Urobilinogen Negative Negative Urine Ketones Negative Negative Urine Protein Negative Negative Urine Leukocytes 1+ Abnormal Negative Urine Blood Negative Negative Urine Nitrite Negative Negative Urine Bilirubin Negative Negative Urine Glucose Negative Negative Urine White Blood Cell Trace(0-5/hpf) Absent Urine Red Blood Cell Trace(0-2/hpf) Absent Urine Bacteria 1+ Abnormal Absent Urine Squamous Epithelial Cell Present Abnormal Absent Urine Culture And 11/06/2017 [facility] Urine Culture SEE RESULT [address] [place] [address] [phone] Ua Routine 06/14/2017 Post Anesthesia Room Nurse In House Ua Specific 1.010 [place] Ua PH 6 Ua Color yellow Ua Appera cloudy Ua WBC trace Ua Protein trace Ua Glucose norm Ua Ketones neg Ua Bilirubin neg Ua Urobilinogen norm Ua Nitrite neg Ua Occult Blood 250 Urine Culture And 06/14/2017 [facility] Urine Culture SEE RESULT [address] [place] [address] [phone] Urinalysis Profile 06/14/2017 [facility] Urine Color Yellow [address] [place] [address] [phone] Urine Appearance Turbid Urine Specific [place] 1.018 N 1.010-1.030 Urine pH 8.0 N 5-9 Urine Urobilinogen Negative Negative Urine Ketones Negative Negative Urine Protein Negative Negative Urine Leukocytes Trace Abnormal Negative Urine Blood 1+ Abnormal Negative Urine Nitrite Negative Negative Urine Bilirubin Negative Negative Urine Glucose Negative Negative Urine White Blood Cell Trace(0-5/hpf) Absent Urine Red Blood Cell Trace(0-2/hpf) Absent Urine Bacteria Absent Absent Urine Squamous Epithelial Cell Present Abnormal Absent Urine Amorphous Crystals Present Abnormal Absent Laboratory 06/14/2017 [facility] Trichomonas Negative Negative 17, 18 test finding [address] [place] [address] [phone] GC/Chlamydia 06/14/2017 [facility] Chlamydia Negative Negative Amplified Rna [address] [place] [address] [phone] Neisseria gonorrhoeae (GC) Rna Negative Negative Comp Metabolic Panel 04/17/2017 [facility] Sodium 138 mmol/L N 133-[address] [place] [address] [phone] Potassium 4.1 mmol/L N 3.5-5.0 Chloride 105 mmol/L N 101-111 Co2 Carbon Dioxide 28 mmol/L N 22-32 Anion Gap 5 mmol/L N 2-11 Glucose 101 mg/dL High 70-100 Blood Urea Nitrogen 8 mg/dL N 6-24 Creatinine 0.64 mg/dL N 0.51-0.95 BUN/Creatinine Ratio 12.5 N 8-20 Calcium 9.9 mg/dL N 8.6-10.3 Total Protein 8.1 g/dL N 6.4-8.9 Albumin 4.1 g/dL N 3.2-5.2 Globulin 4.0 g/dL N 2-4 Albumin/Globulin Ratio 1.0 N 1-3 Total Bilirubin 0.20 mg/dL N 0.2-1.0 Alkaline Phosphatase 47 U/L N 34-104 Alt 9 U/L N 7-52 Ast 13 U/L N 13-39 Egfr Non- 115.0 N >60 Egfr 147.9 N >60 19 Laboratory test 04/17/2017 [facility] TSH (Thyroid 0.90 mcIU/mL N 0.34-5.[address] Stim [place]) [place] [address] [phone] CBC Auto Diff 04/17/2017 [facility] White Blood 6.0 10^3/uL N 3.5-10.[address] [place] [address] [phone] Red Blood Count 4.40 10^6/uL N 4.0-5.4 Hemoglobin 12.1 g/dL N 12.0-16.0 Hematocrit 36 % N 35-47 Mean Corpuscular Volume 83 fL N 80-97 Mean Corpuscular Hemoglobin 27 pg N 27-31 Mean Corpuscular HGB Conc 33 g/dL N 31-36 Red Cell Distribution Width 14 % N 10.5-15 Platelet Count 353 10^3/uL N 150-450 Mean Platelet Volume 8 um3 N 7.4-10.4 Abs Neutrophils 3.2 10^3/uL N 1.5-7.7 Abs Lymphocytes 2.0 10^3/uL N 1.0-4.8 Abs Monocytes 0.6 10^3/uL N 0-0.8 Abs Eosinophils 0.1 10^3/uL N 0-0.6 Abs Basophils 0 10^3/uL N 0-0.2 Abs Nucleated RBC 0 10^3/uL N Granulocyte % 53.3 % N 38-83 Lymphocyte % 33.3 % N 25-47 Monocyte % 10.4 % High 1-9 Eosinophil % 2.2 % N 0-6 Basophil % 0.8 % N 0-2 Nucleated Red Blood Cells % 0 N Lipid Profile 05/09/2014 [facility] Triglycerides 101 mg/dL N 20 (Trig/Chol/HDL) [address] [place] [address] [phone] Cholesterol 127 mg/dL N 21 HDL Cholesterol 38.7 mg/dL N 22 LDL Cholesterol 68 mg/dL N 23 Comp Metabolic Panel 05/09/2014 [facility] Sodium 137 mmol/L N 133-145 [address] [place] [address] [phone] Potassium 3.8 mmol/L N 3.5-5.0 24 Chloride 104 mmol/L N 101-111 Co2 Carbon Dioxide 28 mmol/L N 22-32 Anion Gap 5 mmol/L N 2-11 Glucose 82 mg/dL N 70-100 Blood Urea Nitrogen 8 mg/dL N 6-24 Creatinine 0.63 mg/dL N 0.51-0.95 BUN/Creatinine Ratio 12.7 N 8-20 Calcium 9.6 mg/dL N 8.6-10.3 Total Protein 7.9 g/dL N 6.4-8.9 Albumin 4.4 g/dL N 3.2-5.2 Globulin 3.5 g/dL N 2-4 Albumin/Globulin Ratio 1.3 N 1-3 Total Bilirubin 0.20 mg/dL N 0.2-1.0 Alkaline Phosphatase 48 U/L N 34-104 Alt 7 U/L N 7-52 Ast 14 U/L N 13-39 Egfr Non- 120.5 N >60 Egfr 154.9 N >60 25 Laboratory test 05/09/2014 [facility] TSH (Thyroid 0.78 N 0.34 -5.[address] Stimulating IU/[place] [address] Horm) [phone] CBC Auto Diff 05/09/2014 [facility] White Blood 4.0 Low 4.8- 10.[address] Count 10^3/uL [place], [place] [id number] [phone] Red Blood Count 4.57 10^6/uL N 4.0-5.4 Hemoglobin 12.0 g/dL N 12.0-16.0 Hematocrit 37 % N 35-47 Mean Corpuscular Volume 80 fL N 80-97 Mean Corpuscular Hemoglobin 26 pg Low 27-31 Mean Corpuscular HGB Conc 33 g/dL N 31-36 Red Cell Distribution Width 15 % N 10.5-15 Platelet Count 295 10^3/uL N 150-450 Mean Platelet Volume 9 um3 N 7.4-10.4 Abs Neutrophils 1.6 10^3/uL N 1.5-7.7 Abs Lymphocytes 1.8 10^3/uL N 1.0-4.8 Abs Monocytes 0.4 10^3/uL N 0-0.8 Abs Eosinophils 0.1 10^3/uL N 0-0.6 Abs Basophils 0 10^3/uL N 0-0.2 Abs Nucleated RBC 0 10^3/uL N Granulocyte % 40.0 % N 38-83 Lymphocyte % 45.0 % N 25-47 Monocyte % 10.6 % High 1-9 Eosinophil % 3.4 % N 0-6 Basophil % 1.0 % N 0-2 Nucleated Red Blood Cells % 0 N 1 Presumptive Positive Presumptive positive results are unconfirmed. 2 The urine specimen was tested at the listed cutoffs: Drug class test level (ng/mL) Amphetamines 500 Barbiturates 200 Benzodiazepine metabolites 200 Cocaine metabolites 150 Cannabinoids 50 Opiates 300 Pcp 25 Specimen was received without chain of custody. Results should be used for medical purposes only. 3 Troponin-I testing on Plasma Separator Tubes (PST) has a known false positive rate of 0.20-0.40%. All positive troponins reflex immediate secondary confirmatory testing. 4 Please note: The following may produce a false positive D Dimer test: - Rheumatoid factor greater than 60 IU/ml - Plasma hemoglobin greater than 0.05 gm/dl - Bilirubin greater than 50 mg/dl - Lipids greater than 1000 mg/dl - FDP greater than 20 ug/ml 5 Because ethnic data is not always readily [...] 15-29 5 Kidney failure <15 (or dialysis) 6 Troponin-I testing on Plasma Separator Tubes (PST) has a known false positive rate of 0.20-0.40%. All positive troponins reflex immediate secondary confirmatory testing. 7 <5.0 Negative 5.0 - 25.0 Indeterminate (Repeat testing recommended after 72 hours) >25.0 Positive Perimenopausal women can display HCG levels of up to 20 mIU/mL 8 Because ethnic data is not always readily [...] 15-29 5 Kidney failure <15 (or dialysis) 9 Test Performed by: [address] [address] 10 Because ethnic data is not always [...] 15-29 5 Kidney failure <15 (or dialysis) 11 [facility] Severe Sepsis and Septic Shock Management Bundle Measure requires all lactic acids initially measuring >2.0 mmol/L be repeated. 12 SEE RESULT BELOW Name: LISSETTE SPIVEY : [address]: Hank Lomax MD Acct: [id number] Unit: [id number] AGE: 22 Location: ED Re02/25/18 SEX: F Status: DEP ER SPEC: [id number] SEBASTIEN: 02/25/[address] [facility] [address]: Hank Lomax MD REQ: [id number] RECD: 02/25/18 STATUS: LEWIS ARROYO DR: Oziel Bailey [employer] _ SOURCE: BLOOD,VENO SPDES: ORDERED: Blood Cult Procedure Result Reported Site Aerobic Culture Bottle Final 03/02/182110 ML No Growth Day 5 Anaerobic Culture Bottle Final 03/02/182110 ML No Growth Day 5 * ML - Main Lab . END OF REPORT DEPARTMENT OF PATHOLOGY, [address] [place] [id number] Yony Calvert M.D. Director [facility] # [id number] 13 SEE RESULT BELOW Name: LISSETTE SPIVEY : [address]: Hank Lomax MD Acct: [id number] Unit: [id number] AGE: 22 Location: ED Re02/25/18 SEX: F Status: DEP ER SPEC: [id number] SEBASTINE: 02/25/[address]: Hank Lomax MD REQ: [id number] RECD: 02/25/18 STATUS: LEWIS ARROYO DR: Oziel Bailey [employer] _ SOURCE: URINE SPDESC: ORDERED: Urine Culture Procedure Result Reported Site Urine Culture Final 02/27/18- 1121 ML Organism 1 STREP GROUP B [place] Count 1-10,000 (Few) CFU/ML Organism 2 NORMAL EMERITA [place] Count 10-25,000 (Moderate) CFU/ML Susceptibility testing of penicillins and other B-lactams approved by FDA for treatment of Streptococcus pyogenes (Group A Strep) and Streptococcus agalactiae (Group B Strep) is not necessary for clinical purposes and need not be done routinely, since as with vancomycin, resistant strains have not been recognized. (CLSI X460-P73;p.66) Positive isolates will be saved for one week. Please call the Microbiology Laboratory if further susceptibility testing is needed. * [facility] - Main Lab . END OF REPORT DEPARTMENT OF PATHOLOGY, [address] [place] [address] Yony Calvert M.D. Director [facility] # [id number] 14 Because ethnic data is not always readily [...] 15-29 5 Kidney failure <15 (or dialysis) 15 SEE RESULT BELOW Name: LISSETTE SPIVEY : [address]: Tarik Mendoza MD Acct: [id number] Unit: [id number] AGE: 22 Location: ED Re11/06/17 SEX: F Status: DEP ER SPEC: [id number] SEBASTIEN: 11/06/[address] [facility] [address]: Tarik Mendoza MD REQ: [id number] RECD: 11/06/17 STATUS: LEWIS ARROYO DR: Oziel Bailey [employer] _ SOURCE: URINE SPDESC: ORDERED: Urine Culture Procedure Result Reported Site Urine Culture Final 11/08/17- 1112 ML Organism 1 STAPHYLOCOCCUS SAPROPHYTICUS [place] Count 25-50,000 (Moderate) CFU/ML Organism 2 NORMAL EMERITA [place] Count 10-25,000 (Moderate) CFU/ML Routine sensitivity testing of urine isolates of S. saprophyticus is not advised, because infections respond to concentrations achieved in urine of antimicrobial agents commonly used to treat acute, uncomplicated urinary tract infections (e.g. nitrofurantoin, trimethoprim+/- sulfamethoxazole, or a fluoroquinolone). FORMERLY [facility], [facility] June 2001 * ML - Main Lab . END OF REPORT DEPARTMENT OF PATHOLOGY, [address] [place] [address] Yony Calvert M.D. Director [facility] # [id number] 16 SEE RESULT BELOW Name: LISSETTE RANKIN : [address]: Franklyn Ordaz NP Acct: [id number] Unit: [id number] AGE: 21 Location: [facility] Re06/14/17 SEX: F Status: REG REF SPEC: [id number] SEBASTIEN: 06/14/17-[address]: Franklyn Ordaz NP REQ: [id number] RECD: 06/14/17 STATUS: COMP _ SOURCE: URINE SPDESC: ORDERED: Urine Culture Procedure Result Reported Site Urine Culture Final 06/16/17- 1224 ML No growth of clinically significant organisms * ML - MAIN LAB ([facility]) . END OF REPORT * ML=Testing performed at Main Lab DEPARTMENT OF PATHOLOGY, [address] [place] [address] Yony Calvert M.D. Director [facility] # [id number] 17 [id number] 18 [id number] GC/Chlamydia Source?: Endocervical Trichomonas Source: Affirm Vaginal Swab 19 Because ethnic data is not always readily [...] 15-29 5 Kidney failure <15 (or dialysis) 20 Desirable <150 Borderline high 150-199 High 200-499 Very High >500 21 Desirable <200 Borderline high 200-239 High >239 22 Low <40 Desirable: 40-60 High: >60 23 Desirable <100 Near Optimal 100-129 Borderline high 130-159 High 160-189 Very High >189 24 Potassium reference range changed effective 04/13/14 25 Because ethnic data is not always readily [...] 5 Kidney failure <15 (or dialysis) Procedures Date Code Description Status 09/10/2018 32540 EKG Tracing & Interpretation Completed 08/08/2018 62642 ECG Monitor/Recording W/Visual Superimposition Scanning Completed Encounters Type Date Location Provider Dx Diagnosis Office Visit 08/02/2018 [facility] Oziel Bailey NP R00.0 Tachycardia, 2:00p Medicine unspecified R10.9 Unspecified abdominal pain Office Visit 07/13/2018 9:40a [facility] Oziel Lynn, R10.9 Unspecified Medicine [employer] abdominal pain R10.811 Right upper quadrant abdominal tenderness Office Visit 10/18/2017 11:00a [facility] Oziel Bailey NP J30.89 Other allergic Medicine rhinitis Office Visit 06/14/2017 11:40a [facility] Zsofia Orlin, N39.0 Urinary tract Medicine - [place] [employer]CH[employer]ICIAN infection, site Rd not specified N93.8 Other specified abnormal uterine and vaginal bleeding R10.2 Pelvic and perineal pain O26.91 related conditions, unspecified, first trimester F41.9 Anxiety disorder, unspecified Office Visit 05/15/2017 10:40a [facility] Oziel Bailey, F32.89 Other specified Medicine [employer] depressive episodes F41.9 Anxiety disorder, unspecified M79.674 Pain in right toe(s) Office Visit 04/27/2017 9:40a [facility] Dermatology Oscar Johnson, D22.39 Melanocytic nevi of other parts of face L81.4 Other melanin hyperpigmentation Office Visit 04/17/2017 2:00p [facility] Oziel Bailey NP Z00.00 Encntr for Medicine general adult medical exam w/o abnormal findings F32.89 Other specified depressive episodes F41.9 Anxiety disorder, unspecified D48.5 Neoplasm of uncertain behavior of skin Office Visit 12/26/2016 10:30a Orthopedic Ced F M25.561 Pain in right Services Of MD Carmen knee C.M.A. Office Visit 05/06/2014 11:10a [facility] Internal Heidi V70.0 Examination Aneta Cobb M.D. General Medical Routine AT Health Care Facility V77.1 Screening Diabetes Mellitus V77.91 Screening For Lipoid Disorders 719.46 Pain Joint Lower Leg 285.8 Anemia Other Spec 278.00 Obesity Unspec V04.81 Need For Prophylactic Vaccination & Inoculation/Influenza Plan of Treatment Future Appointment(s):11/27/2018 10:00 am - Digna West M.D. at [facility]10/16/2018 9:00 am - [place] [facility] Schedule at [facility]10/16/2018 9:30 am - Digna West M.D. at [facility]10/10/2018 3:30 pm - [place] [facility] Schedule at [facility]2018 - Digna West M.D.R00.0 Tachycardia, unspecifiedNew Orders: Echocardiogram, Scheduled: 10/10/18Stress Test, Treadmill, No Imaging, Scheduled : 10/16/18Follow up:5-11 wks ov to discuss tests
[2018-09-27 06:08] LABS: ABS Basophils 0.1 10^3/ul (0-0.2); ABS Eosinophils 0.3 10^3/ul (0-0.6); ABS Lymphocytes 2.5 10^3/ul (1.0-4.8); ABS Monocytes 0.6 10^3/ul (0-0.8); ABS Neutrophils 2.4 10^3/ul (1.5-7.7); ABS Nucleated RBC 0 10^3/ul; Eosinophil % 5.4 %; Hematocrit 36 % (33-41); Lymphocyte % 43.1 %; Mean Corpuscular HGB Conc 33 g/dL (31-36); Mean Corpuscular Hemoglobin 26 pg (27-31); Mean Corpuscular Volume 79 fL (80-97); Mean Platelet Volume 7.9 fL (7.4-10.4); Nucleated Red Blood Cells % 0.1; Platelet Count 337 10^3/uL (150-450); Red Blood Count 4.55 10^6 /uL (3.70-4.87); Red Cell Distribution Width 15 % (10.5-15); White Blood Count 5.8 10^3/uL (3.5-10.8)
[2018-09-27 06:18] LABS: Activated Partial Thrombo Time 31.2 seconds (26.0-36.3); INR 0.99 (0.77-1.02)
[2018-09-27 06:25] LABS: Troponin I 0.01 ng/mL (<0.04)
[2018-09-27 06:29] LABS: HCG Pregnancy < 0.60 mIU/mL
--- NOTE | 2018-09-27 06:31 | ED ---
Palpitations / Dysrhythmia - HPI Summary HPI Summary: The patient is a 23 year old female who is presenting to the [facility] with a chief complaint of palpitations. The patient was woken up by her palpitations earlier in the night and reports that these symptoms are not acute. She has been seeing a acupuncturist for the palpitations and states that she has these symptoms daily. According to the the patient, the symptoms do not typically occur when she is sleeping and often only occur once each day. Her acupuncturist is Dr. West and she has an appointment planned to receive a stress test along with an Echocardiogram. Other symptoms include SOB, and dizziness characterized as "room-spinning." She denies N/V. The symptoms are aggravated by nothing. The symptoms are alleviated by nothing. Pertinent PMHx includes anxiety. Patient is taking Zoloft for her anxiety. - History of Current Complaint Chief Complaint: EDDysrhythmPalp Time Seen by Provider: 09/27/18 05:35 Hx Obtained From: Patient Onset/Duration: Sudden Onset Timing: Constant Character: Fast Aggravating: Nothing Alleviating: Nothing Associated Signs & Symptoms: Dizzy - "Room Spinning", Shortness of Breath - Allergy/Home Medications Allergies/Adverse Reactions: Allergies Allergy/AdvReac Type Severity Reaction Status Date / Time No Known Allergies Allergy Verified 11/06/17 11:48 PMH/Surg Hx/FS Hx/Imm Hx Endocrine/Hematology History: Denies: Hx Anticoagulant Therapy, Hx Diabetes, Hx Thyroid Disease Cardiovascular History: Denies: Hx Hypertension Respiratory History: Denies: Hx Asthma, Hx Chronic Obstructive Pulmonary Disease (COPD) GI History: Denies: Hx Ulcer History: Denies: Hx Renal Disease Sensory History: Denies: Hx Contacts or Glasses, Hx Hearing Aid Opthamlomology History: Denies: Hx Contacts or Glasses Psychiatric History: Reports: Hx Anxiety, Hx Eating Disorder - binge eating D/O , Hx Depression - Hospitalized for suicidal ideation, Hx Community Mental Health Tx, Hx of Violent Episodes Against Others Denies: Hx Inpatient Treatment, Hx Suicide Attempt - Surgical History Surgery Procedure, Year, and Place: D&C 2016 Infectious Disease History: No Infectious Disease History: Denies: Hx Clostridium Difficile, Hx Hepatitis, Hx Human Immunodeficiency Virus (HIV), Hx of Known/Suspected MRSA, Hx Shingles, Hx Tuberculosis, Hx Known/ Suspected VRE, Hx Known/Suspected VRSA, History Other Infectious Disease, Traveled Outside the [place] in Last 30 Days - Family History Known Family History: Positive: Hypertension, Respiratory Disease - asthma Negative: Cardiac Disease, Diabetes - Social History Occupation: Employed Full-time Alcohol Use: None Hx Substance Use: No Substance Use Type: Reports: None Hx Tobacco Use: No Smoking Status (MU): Never Smoked Tobacco Have You Smoked in the Last Year: No Review of Systems Constitutional: Negative Eyes: Negative ENT: Negative Positive: Palpitations Positive: Shortness Of Breath Negative: Vomiting, Nausea Genitourinary: Negative Musculoskeletal: Negative Skin: Negative Neurological: Other - Dizziness ("room spinning") Psychological: Normal All Other Systems Reviewed And Are Negative: Yes Physical Exam - Summary Physical Exam Summary: VITAL SIGNS: Reviewed. GENERAL: Patient is a well-developed and nourished (FEMALE) who is lying comfortable in the stretcher. Patient is not in any acute respiratory distress. HEAD AND FACE: No signs of trauma. No ecchymosis, hematomas or skull depressions. No sinus tenderness. EYES: PERRLA, EOMI x 2, No injected conjunctiva, no nystagmus. EARS: Hearing grossly intact. Ear canals and tympanic membranes are within normal limits. MOUTH: Oropharynx within normal limits. NECK: Supple, trachea is midline, no adenopathy, no JVD, no carotid bruit, no c- spine tenderness, neck with full ROM. CHEST: Symmetric, no tenderness at palpation LUNGS: Clear to auscultation bilaterally. No wheezing or crackles. CVS: Regular tachycardia ABDOMEN: Soft, non-tender. No signs of distention. No rebound no guarding, and no masses palpated. Bowel sounds are normal. EXTREMITIES: FROM in all major joints, no edema, no cyanosis or clubbing. NEURO: Alert and oriented x 3. No acute neurological deficits. Speech is normal and follows commands. SKIN: Dry and warm Triage Information Reviewed: Yes Vital Signs On Initial Exam: Initial Vitals Temp Pulse Resp BP Pulse Ox 98.5 F 129 17 137/102 98 09/27/18 05:22 09/27/18 05:22 09/27/18 05:22 09/27/18 05:22 09/27/18 05:22 Vital Signs Reviewed: Yes Diagnostics - Vital Signs Vital Signs Temp Pulse Resp BP Pulse Ox 09/27/18 05:52 20 09/27/18 05:32 113 18 98 09/27/18 05:30 111 111/72 98 09/27/18 05:22 98.5 F 129 17 137/102 98 - Laboratory Lab Results: Lab Results 09/27/18 Range/Units 05:53 WBC 5.8 (3.5-10.8) 10^3/uL RBC 4.55 (3.70-4.87) 10^6 /uL Hgb 12.0 (12.0-16.0) g/dL Hct 36 (33-41) % MCV 79 L (80-97) fL MCH 26 L (27-31) pg MCHC 33 (31-36) g/dL RDW 15 (10.5-15) % Plt Count 337 (150-450) 10^3/uL MPV 7.9 (7.4-10.4) fL Neut % (Auto) 40.9 % Lymph % (Auto) 43.1 % [place] % (Auto) 9.6 % Eos % (Auto) 5.4 % Baso % (Auto) 1.0 % Absolute Neuts (auto) 2.4 (1.5-7.7) 10^3/ul Absolute Lymphs (auto) 2.5 (1.0-4.8) 10^3/ul Absolute Monos (auto) 0.6 (0-0.8) 10^3/ul Absolute Eos (auto) 0.3 (0-0.6) 10^3/ul Absolute Basos (auto) 0.1 (0-0.2) 10^3/ul Absolute Nucleated RBC 0 10^3/ul Nucleated RBC % 0.1 Result Diagrams: 09/27/18 05:53 09/27/18 05:53 Lab Statement: Any lab studies that have been ordered have been reviewed, and results considered in the medical decision making process. - EKG 0528 EKG Rhythm: Sinus Tachycardia - 115 bpm Summary of EKG Findings: An EKG at 0528 reveals 115 bpm sinus tachycardia, normal axis, normal intervals and no ischemic changes. Course/Dx - Course Course Of Treatment: The patient is a 23 year old female who is presenting to the [facility] with a chief complaint of heart palpitations. The patient received blood work and an EKG in the [facility]. Her physical exam presented regular tachycardia which was consistent with her EKG findings. The patient is currently seeing her acupuncturist for these symptoms and will be receiving a stress test along with an echocardiogram from him. She also has a hx of anxiety and is curretly taking Zoloft daily. After reviewing her blood work, the patient will be dx with anxiety and heart palpitations. We discussed discharge plans with the patient and she is agreeable to the plan. The patient will be discharged home. We recommended a follow up with her acupuncturist at an earlier date as well. - Diagnoses Provider Diagnoses: Heart palpitations, Anxiety Discharge - Sign-Out/Discharge Documenting (check all that apply): Patient Departure - Discharge Home Patient Received Moderate/Deep Sedation with Procedure: No - Discharge Plan Condition: Stable Disposition: HOME Referrals: Oziel Bailey, [employer] [Primary Care Provider] - - Attestation Statements Document Initiated by Scribe: Yes Documenting Scribe: Kory Chu Provider For Whom Scribe is Documenting (Include Credential): Dr. Feliciano Pope Scribe Attestation: Kory Hatfield, scribed for Dr. Feliciano Pope on 09/27/18 at 0645. Status of Scribe Document: Ready
[2018-09-27 06:32] LABS: ALT 10 U/L (7-52); AST 16 U/L (13-39); Albumin 4.2 g/dL (3.2-5.2); Albumin/Globulin Ratio 1.1 (1-3); Alkaline Phosphatase 66 U/L (34-104); Anion Gap 10 mmol/L (2-11); BUN/Creatinine Ratio 16.7 (8-20); Blood Urea Nitrogen 10 mg/dL (6-24); CO2 Carbon Dioxide 24 mmol/L (22-32); Calcium 9.2 mg/dL (8.6-10.3); Chloride 106 mmol/L (101-111); EGFR African American 147.4 (>60); EGFR Non-African American 121.8 (>60); Globulin 3.9 g/dL (2-4); Glucose 104 mg/dL (70-100); Magnesium 1.8 mg/dL (1.9-2.7); Potassium 3.6 mmol/L (3.5-5.0); Sodium 140 mmol/L (135-145); Total Protein 8.1 g/dL (6.4-8.9)
[2018-09-27 06:45] LABS: TSH (Thyroid Stimulating Horm) 1.56 mcIU/mL (0.34-5.60)
[2018-09-27 07:08] VITALS: BP 112/68
== END 2018-09-27 07:07 | disposition home or self-care (01) ==
LOC: ED 05:19
DX: R00.2 Palpitations (principal); F41.9 Anxiety disorder, unspecified
CPT/HCPCS: 36415; 80053; 83735; 84443; 84484; 84702; 85025; 85379; 85610; 85730; 93005; 96361; 96374; 99283; J2060

== ENCOUNTER 2018-11-29 20:19 | Emergency (ER) | payer OTHER ==
--- OUTSIDE RECORDS SUMMARY | 2018-11-29 20:25 | XMS REPORT | Continuity of Care Document ---
:1995 External Reference #:[id number] Author Name Sandra Blancas Care Team Providers Name Role Phone Oziel Bailey NP Primary Care Physician Unavailable Payers Date Identification Numbers Payment Provider Subscriber Expires: 2016 Policy Number: [id number] [employer] Lissette Spivey Group Name: [id number] [address] [address] PayID: [id number] [place] [address] Effective: 2013 Policy Number: [employer] Lissette Spivey [id number] Expires: 2013 PayID: [id number] [address] [address] [place] [address] Effective: 2016 Policy Number: [id number] Javed Spivey Group Name: [id number] [address] PayID: [id number] [place] [address] Problems Active Problems Provider Date Depressive disorder Oziel Bailey NP Onset: 04/23/2017 Anxiety Oziel Bailey NP Onset: 04/23/2017 Family History Date Family Member(s) Observation Comments General Asthma brother Mother 40 Children 1 Social History Type Date Description Comments Sex Unknown Marital Status Lives With Occupation Currently Working works at [employer] ETOH Use Denies alcohol use ETOH Use Occasionally consumes alcohol Tobacco Use Start: Unknown Patient has never smoked Recreational Drug Use Denies Drug Use Smoking Status Reviewed: 11/27/18 Patient has never smoked Exercise Type/Frequency Does not exercise Exercise Type/Frequency 3 young children Allergies, Adverse Reactions, Alerts Description No Known Drug Allergies Medications Active Medications SIG Qnty Indications Ordering Provider Date Sertraline HCL 2 by mouth every Oziel Bailey NP 11/08/2018 100mg day Tablets Vitamin D3 Ultra 1 by mouth once 12tabs E55.9 Oziel Bailey NP 10/24/2018 Potency weekly for 12 [id number] weeks . Tablets Magnesium Oxide One tablet once 30tabs E83.42 Oziel Bailey NP 10/24/2018 daily 400(240Mg) mg Tablets History Medications Omeprazole 1 by mouth every 30caps R10.9 Oziel Bailey NP 08/02/2018 - 40mg day 10/16/2018 Capsules Omeprazole 1 by mouth once 30caps R10.9 Oziel Bailey NP 07/13/2018 - 20mg daily 08/02/2018 Capsules Fluticasone 2 sprays each 16units J30.89 Oziel Bailey NP 10/18/2017 - Propionate nostril qd.(pt 10/16/2018 50mcg/Act not using) Suspension Naphcon-A 1-2 drops into 10ml J30.89 Oziel Bailey NP 10/18/2017 - 0.025-0.3% affected eye 4 07/12/2018 Solution times daily as needed. Escitalopram Oxalate 1 tablet daily 30tabs F32.89 Oziel Bailey NP 2016 - (pt not taking) 10/07/2017 10mg Tablets Naproxen Take 1 tab every 60tabs Ced F - 500mg 12 hours as MD Carmen 04/17/2017 Tablets needed for pain Amoxicillin Thai Albarado, - 875mg 05/14/2017 Tablets Immunizations CPT Code Status Date Vaccine Lot # 14348 Given 05/06/2014 Flu Vaccine Split Virus Preservative Free For Indiv [id number] 3Yr Older 04761 Given 04/13/2010 Hepatitis A Vaccine Pediatric/Adolescent Dosage 2 Dose Schedule 02887 Given 07/03/2009 Meningitis MCV4 MenACWY Meningococcal Conjugate Vaccine 89340 Given 04/08/2009 Hepatitis A Vaccine Pediatric/Adolescent Dosage 2 Dose Schedule 50903 Given 10/02/2008 Gardasil (HPV) 71444 Given 09/18/2008 Gardasil (HPV) 13998 Given 03/26/2008 Varicella (Chicken Pox) Immunization 23425 Given 03/20/2008 Gardasil (HPV) 57007 Given 08/31/2006 Tdap - Tetanus/Diptheria/Acellular Pertussis 49869 Given 08/31/2006 Gardasil (HPV) 84306 Given 08/11/2006 Tdap - Tetanus/Diptheria/Acellular Pertussis 78167 Given 08/18/1998 DTaP Vaccine Younger Than 7 08521 Given 08/18/1998 Measles Mumps And Rubella MMR 46307 Given 08/18/1998 IPV/Poliomyelitis Immunization 83680 Given 08/22/1996 Varicella (Chicken Pox) Immunization 84903 Given 12/22/1994 IPV/Poliomyelitis Immunization 78572 Given 12/22/1994 Measles Mumps And Rubella MMR 72869 Given 12/22/1994 DTaP Vaccine Younger Than 7 87026 Given 02/24/1994 IPV/Poliomyelitis Immunization 53763 Given 02/24/1994 DTaP Vaccine Younger Than 7 47933 Given 1995 Hep B Pediatric/Adolescent 97231 Given 1993 IPV/Poliomyelitis Immunization 00922 Given 1993 DTaP Vaccine Younger Than 7 84722 Given 1993 Hep B Pediatric/Adolescent 57394 Given 1993 IPV/Poliomyelitis Immunization 36609 Given 1993 DTaP Vaccine Younger Than 7 34872 Given 1993 Hep B Pediatric/Adolescent Vital Signs Date Vital Result Comment 11/27/2018 10:02am Height 65 inches 5'5" Weight 236.38 lb Clothes/shoes Heart Rate 88 /min Radial BP Systolic Sitting 138 mmHg Lue reg cuff BP Diastolic Sitting 80 mmHg Lue reg cuff BP Systolic Standing 142 mmHg Lue reg cuff BP Diastolic Standing 80 mmHg Lue reg cuff BMI (Body Mass Index) 39.3 kg/m2 Ejection Fraction 50-55% Echo 10/10/2018 11/08/2018 11:43am Height 65 inches 5'5" Weight 234.00 lb Heart Rate 91 /min BP Systolic 124 mmHg BP Diastolic 75 mmHg Body Temperature 97.6 F O2 % BldC Oximetry 97 % BMI (Body Mass Index) 38.9 kg/m2 10/24/2018 10:28am Height 65 inches 5'5" Weight 229.00 lb Heart Rate 91 /min BP Systolic 125 mmHg BP Diastolic 71 mmHg Body Temperature 97.3 F O2 % BldC Oximetry 96 % BMI (Body Mass Index) 38.1 kg/m2 09/10/2018 1:22pm Height 60 inches 5'0" Weight [...] Date Facility Test Result H/L Range Note CBC Auto Diff 09/27/2018 [facility] White Blood 5.8 10^3/uL N 3.5-10.[address] [place] [address] [phone] Red Blood Count 4.55 10^6/uL N 3.70-4.87 Hemoglobin 12.0 g/dL N 12.0-16.0 Hematocrit 36 % N 33-41 Mean Corpuscular Volume 79 fL Low 80-97 Mean Corpuscular Hemoglobin 26 pg Low 27-31 Mean Corpuscular HGB Conc 33 g/dL N 31-36 Red Cell Distribution Width 15 % N 10.5-15 Platelet Count 337 10^3/uL N 150-450 Mean Platelet Volume 7.9 fL N 7.4-10.4 Abs Neutrophils 2.4 10^3/uL N 1.5-7.7 Abs Lymphocytes 2.5 10^3/uL N 1.0-4.8 Abs Monocytes 0.6 10^3/uL N 0-0.8 Abs Eosinophils 0.3 10^3/uL N 0-0.6 Abs Basophils 0.1 10^3/uL N 0-0.2 Abs Nucleated RBC 0 10^3/uL Granulocyte % 40.9 % Lymphocyte % 43.1 % Monocyte % 9.6 % Eosinophil % 5.4 % Basophil % 1.0 % Nucleated Red Blood Cells % 0.1 Inr/Protime 09/27/2018 [facility] Inr 0.99 N 0.77-1.[address] [place] [address] [phone] Laboratory test 09/27/2018 [facility] Partial 31.2 seconds N 26.0-36.[address] [place] [address] PTT [phone] D Dimer Quantitative < 200 ng/mL N Less Than 230 1 Troponin-I (TnI) 0.01 ng/mL <0.04 2 HCG < 0.60 mIU/mL 3 Comp Metabolic Panel 09/27/2018 [facility] Sodium 140 mmol/L N 135-145 [address] [place] [address] [phone] Potassium 3.6 mmol/L N 3.5-5.0 Chloride 106 mmol/L N 101-111 Co2 Carbon Dioxide 24 mmol/L N 22-32 Anion Gap 10 mmol/L N 2-11 Glucose 104 mg/dL High 70-100 Blood Urea Nitrogen 10 mg/dL N 6-24 Creatinine 0.60 mg/dL N 0.51-0.95 BUN/Creatinine Ratio 16.7 N 8-20 Calcium 9.2 mg/dL N 8.6-10.3 Total Protein 8.1 g/dL N 6.4-8.9 Albumin 4.2 g/dL N 3.2-5.2 Globulin 3.9 g/dL N 2-4 Albumin/Globulin Ratio 1.1 N 1-3 Total Bilirubin 0.20 mg/dL N 0.2-1.0 Alkaline Phosphatase 66 U/L N 34-104 Alt 10 U/L N 7-52 Ast 16 U/L N 13-39 Egfr Non- 121.8 >60 Egfr 147.4 >60 4 Laboratory test 09/27/2018 [facility] Magnesium 1.8 mg/dL Low 1.9-2.7 finding [address] [place] [address] [phone] TSH (Thyroid Stim Horm) 1.56 mcIU/mL N 0.34-5.60 Laboratory test finding 09/13/2018 [facility] Cortisol 7.38 g/ dL 5 [address] [place] [address] [phone] Magnesium 1.9 mg/dL N 1.9-2.7 Iron 73 g/dL N 50-212 Iron & Iron 09/13/2018 [facility] Unsaturated Iron < 374 g/dL Binding Capacity [address] [place] [address] [phone] Total Iron Binding Capacity 389 g/dL N 250-450 Transferrin 278 mg/dL N 203-362 % Iron Saturation 19 % N 15-55 Vitamin B12 And 09/13/2018 [facility] Vitamin B12 365 pg/mL N 180-914 6 Folate Serum [address] [place] [address] [phone] Folic Acid (Folate) 13.32 ng/mL >3.99 Laboratory 09/13/2018 [facility] Vitamin D Total 12.7 ng/mL Low 20-50 test finding [address] 25(Oh) [place] [address] [phone] Urine Drug SCR 07/28/2018 [facility] Amphetamine Ur None None ED & Pain [address] [place] [address] [phone] Barbiturates Urine Screen None Detected None Detect Benzodiazepine Urine Screen None Detected None Detect Urine Cannabinoids Screen Presumptive Posi <SEE NOTE> Abnormal None Detect 7 Urine Cocaine Screen None Detected None Detect Urine Opiates Screen None Detected None Detect Urine Phencyclidine Screen None Detected None Detect 8 Urinalysis Profile 07/28/2018 [facility] Urine Color Yellow [address] [place] [address] [phone] Urine Appearance Clear Urine Specific [place] 1.054 High 1.010-1.030 Urine pH 6.0 N 5-9 Urine Urobilinogen Negative Negative Urine Ketones Negative Negative Urine Protein Negative Negative Urine Leukocytes Negative Negative Urine Blood Negative Negative Urine Nitrite Negative Negative Urine Bilirubin Negative Negative Urine Glucose Negative Negative Laboratory test 07/28/2018 [facility] Troponin-I 0.01 ng/mL < 0.04 [address] (TnI) [place] [address] [phone] CBC Auto Diff 07/28/2018 [facility] White Blood 5.4 N 3.5- 10.[address] Count 10^3/[place] [address] [phone] Red Blood Count 4.53 10^6/uL N 4.00-5.40 [...] Blood Cells % 0.1 Laboratory test 07/28/2018 [facility] D Dimer 295 ng/mL High Less [address] Quantitative Than 230 [place] [address] [phone] Comp Metabolic 07/28/2018 [facility] Sodium 139 N 135-[address] mmol/[place] [address] [phone] Potassium 3.6 mmol/L N 3.5-5.0 Chloride 105 [...] Egfr Non- 94.9 >60 Egfr 114.9 >60 11 Laboratory test 07/28/2018 [facility] Troponin-I (TnI) 0.00 ng/ mL <0.04 [address] [place] [address] [phone] HCG < 0.60 mIU/mL 13 TSH (Thyroid Stim Horm) 0.84 mcIU/mL N 0.34-5.60 CBC Auto Diff 07/16/2018 [facility] White Blood 4.9 10^3/uL N 3.5-10.[address] [place] [address] [phone] Red Blood Count 4.51 10^6/uL N 4.00-5.40 [...] Cells % 0 Comp Metabolic Panel 07/16/2018 [facility] Sodium 140 mmol/L N 135-[address] [place] [address] [phone] Potassium 3.9 mmol/L N 3.5-5.0 Chloride 106 [...] Egfr Non- 118.3 >60 Egfr 143.1 >60 14 Laboratory test 07/16/2018 [facility] Lipase < 10 U/L Low 11.0 -82.[address] [place] [address] [phone] Laboratory test 07/16/2018 [facility] Hel[place] Negative Negative 15 finding [address] [facility] [place] [address] Antigen- [phone] Stool CBC Auto Diff 02/25/2018 [facility] White 14.5 10^3/uL High 3.5-10.8 [address] [facility] [place] [address] Count [phone] Red Blood Count 4.10 10^6/uL N 4.00-5.40 [...] Cells % 0 Comp Metabolic Panel 02/25/2018 [facility] Sodium 137 mmol/L N 135-145 [address] [place], [place] [address] [phone] Potassium 3.7 mmol/L N 3.5-5.0 Chloride 104 [...] Egfr Non- 116.1 >60 Egfr 140.5 >60 16 Laboratory test 02/25/2018 [facility] C Reactive 66.52 mg/L High <8.[address] [place] [address] [phone] Lactic Acid 1.6 mmol/L N 0.5-2.0 17 Blood Culture SEE RESULT BELOW 18 Urine Culture And 02/25/2018 [facility] Urine SEE RESULT [address] [place] [address] [phone] Comp Metabolic 11/06/2017 [facility] Sodium 135 mmol/L Low 139 -[address] [place] [address] [phone] Potassium 3.9 mmol/L N 3.5-5.0 Chloride 106 [...] Egfr Non- 180.4 >60 Egfr 232.0 >60 20 CBC Auto Diff 11/06/2017 [facility] White Blood 9.0 10^3/uL N 3.5-10.[address] [place] [address] [phone] Red Blood Count 3.77 10^6/uL Low 4.0-5.4 [...] Blood Cells % 0.1 Laboratory test 11/06/2017 [facility] Erythrocyte Sed 91 mm/Hr High 0-[address] [place] [address] [phone] Urine Culture And 11/06/2017 [facility] Urine Culture SEE RESULT [address] [place] [address] [phone] Urinalysis Profile 11/06/2017 [facility] Urine Color Straw [address] [place] [address] [phone] Urine Appearance Clear Urine Specific [place] 1.004 Low 1.010-1.030 Urine pH 8.0 N [...] Cell Present Abnormal Absent Urine Culture And 06/14/2017 [facility] Urine Culture SEE RESULT [address] [place] [address] [phone] Ua Routine 06/14/2017 [facility] Ua Specific 1.010 [place] Ua PH 6 Ua Color yellow Ua Appera cloudy Ua WBC trace Ua Protein trace Ua Glucose norm Ua Ketones neg Ua Bilirubin neg Ua Urobilinogen norm Ua Nitrite neg Ua Occult Blood 250 Urinalysis Profile 06/14/2017 [facility] Urine Color Yellow [address] [place] [address] [phone] Urine Appearance Turbid Urine Specific [place] 1.018 N 1.010-1.030 Urine pH 8.0 N [...] Amorphous Crystals Present Abnormal Absent Laboratory 06/14/2017 [facility] Trichomonas Negative Negative 23, 24 test finding [address] [place] [address] [phone] GC/Chlamydia 06/14/2017 [facility] Chlamydia Negative Negative Amplified Rna [address] [place] [address] [phone] Neisseria gonorrhoeae (GC) Rna Negative Negative CBC Auto Diff 04/17/2017 [facility] White Blood 6.0 10^3/uL N 3.5-10.[address] [place] [address] [phone] Red Blood Count 4.40 10^6/uL N 4.0-5.4 [...] Nucleated Red Blood Cells % 0 N Comp Metabolic Panel 04/17/2017 [facility] Sodium 138 mmol/L N 133-[address] [place] [address] [phone] Potassium 4.1 mmol/L N 3.5-5.0 Chloride 105 [...] 115.0 N >60 Egfr 147.9 N >60 25 Laboratory 04/17/2017 [facility] TSH (Thyroid Stim 0.90 N 0.34 -5.60 test finding [address] Horm) mcIU/mL [place], [place] [address] [phone] Lipid Profile 05/09/2014 [facility] Triglycerides 101 mg/dL N 26 (Trig/Chol/HDL [address] ) [place], [place] [address] [phone] Cholesterol 127 mg/dL N 27 HDL Cholesterol 38.7 mg/dL N 28 LDL Cholesterol 68 mg/dL N 29 Comp Metabolic Panel 05/09/2014 [facility] Sodium 137 mmol/L N 133-[address] [place] [address] [phone] Potassium 3.8 mmol/L N 3.5-5.0 30 Chloride 104 mmol/L N 101-111 Co2 Carbon [...] 120.5 N >60 Egfr 154.9 N >60 31 Laboratory test 05/09/2014 [facility] TSH (Thyroid 0.78 N 0.34 -5.[address] Stimulating IU/[place] [address] Horm) [phone] CBC Auto Diff 05/09/2014 [facility] White Blood 4.0 Low 4.8- 10.[address] Count 10^3/[place] [address] [phone] Red Blood Count 4.57 10^6/uL N 4.0-5.4 [...] Red Blood Cells % 0 N 1 Please note: The following may produce a false positive D Dimer test: - Rheumatoid factor greater than 60 IU/ml - Plasma hemoglobin greater than 0.05 gm/dl - Bilirubin greater than 50 mg/dl - Lipids greater than 1000 mg/dl - FDP greater than 20 ug/ml 2 Troponin-I testing on Plasma Separator Tubes (PST) has a known false positive rate of 0.20-0.40%. All positive troponins reflex immediate secondary confirmatory testing. 3 <5.0 Negative 5.0 - 25.0 Indeterminate (Repeat testing recommended after 72 hours) >25.0 Positive Perimenopausal women can display HCG levels of up to 20 mIU/mL 4 Because ethnic data is not always [...] 5 Kidney failure <15 (or dialysis) 5 AM 8.7-22.4 PM <10 6 Normal Range 180 to 914 Indeterminate Range 145 to 180 Deficient Range <145 7 Presumptive Positive Presumptive positive results are unconfirmed. 8 The urine specimen was tested at the listed cutoffs: Drug class test level (ng/mL) Amphetamines 500 Barbiturates 200 Benzodiazepine metabolites 200 Cocaine metabolites 150 Cannabinoids 50 Opiates 300 Pcp 25 Specimen was received without chain of custody. Results should be used for medical purposes only. 9 Troponin-I testing on Plasma Separator Tubes (PST) has a known false positive rate of 0.20-0.40%. All positive troponins reflex immediate secondary confirmatory testing. 10 Please note: The following may produce a false positive D Dimer test: - Rheumatoid factor greater than 60 IU/ml - Plasma hemoglobin greater than 0.05 gm/dl - Bilirubin greater than 50 mg/dl - Lipids greater than 1000 mg/dl - FDP greater than 20 ug/ml 11 Because ethnic data is not always readily [...] 15-29 5 Kidney failure <15 (or dialysis) 12 Troponin-I testing on Plasma Separator Tubes (PST) has a known false positive rate of 0.20-0.40%. All positive troponins reflex immediate secondary confirmatory testing. 13 <5.0 Negative 5.0 - 25.0 Indeterminate (Repeat testing recommended after 72 hours) >25.0 Positive Perimenopausal women can display HCG levels of up to 20 mIU/mL 14 Because ethnic data is not always [...] 5 Kidney failure <15 (or dialysis) 15 Test Performed by: [place] [address] 16 Because ethnic data is not always readily [...] 15-29 5 Kidney failure <15 (or dialysis) 17 [facility] Severe Sepsis and Septic Shock Management Bundle Measure requires all lactic acids initially measuring >2.0 mmol/L be repeated. 18 SEE RESULT BELOW Name: LISSETTE SPIVEY : [address]: Hank Lomax MD Acct: [id number] Unit: [id number] AGE: 22 Location: ED Re02/25/18 SEX: F Status: DEP ER SPEC: [id number] SEBASTIEN: 02/25/[address]: Hank Lomax MD REQ: [id number] RECD: 02/25/18 STATUS: LEWIS ARROYO DR: Oziel Bailey DIRECTOR OF SAFETY _ SOURCE: BLOOD,VENO SPDESC: ORDERED: Blood Cult Procedure Result Reported Site Aerobic Culture Bottle Final 03/02/18- 2110 ML No Growth Day 5 Anaerobic Culture Bottle Final 03/02/182110 ML No Growth Day 5 * ML - Main Lab . END OF REPORT DEPARTMENT OF PATHOLOGY, [address] [place] [address] Yony Calvert M.D. Director [facility] # [id number] 19 SEE RESULT BELOW Name: LISSETTE SPIVEY : [address]: Hank Lomax MD Acct: [id number] Unit: [id number] AGE: 22 Location: ED Re02/25/18 SEX: F Status: DEP ER SPEC: [id number] SEBASTIEN: 02/25/[address]: Hank Lomax MD REQ: [id number] RECD: 02/25/18 STATUS: LEWIS ARROYO DR: Oziel Bailey DIRECTOR OF SAFETY _ SOURCE: URINE SPDESC: ORDERED: Urine Culture Procedure Result Reported Site Urine Culture Final 02/27/18- 1121 ML Organism 1 STREP GROUP B [place] Count 1-10,000 (Few) CFU/ML Organism 2 NORMAL EMERITA [place] Count 10-25,000 (Moderate) CFU/ML Susceptibility testing of penicillins and other B-lactams approved by FDA for treatment of Streptococcus pyogenes (Group A Strep) and Streptococcus agalactiae (Group B Strep) is not necessary for clinical purposes and need not be done routinely, since as with vancomycin, resistant strains have not been recognized. (CLSI S354-Q58;p.66) Positive isolates will be saved for one week. Please call the Microbiology Laboratory if further susceptibility testing is needed. * ML - Main Lab . END OF REPORT DEPARTMENT OF PATHOLOGY, [address] [place] [address] Yony Calvert M.D. Director [facility] # [id number] 20 Because ethnic data is not always readily [...] 15-29 5 Kidney failure <15 (or dialysis) 21 SEE RESULT BELOW Name: LISSETTE SPIVEY : [address]: Tarik Mendoza MD Acct: [id number] Unit: [id number] AGE: 22 Location: ED Re11/06/17 SEX: F Status: DEP ER SPEC: [id number] SEBASTIEN: 11/06/17-1519 [facility] DR: Tarik Mendoza MD REQ: [id number] RECD: 11/06/17-1521 STATUS: LEWIS ARROYO DR: Oziel Bailey DIRECTOR OF SAFETY _ SOURCE: URINE SPDESC: ORDERED: Urine Culture Procedure Result Reported Site Urine Culture Final 11/08/17- 1112 ML Organism 1 STAPHYLOCOCCUS SAPROPHYTICUS [place] Count 25-50,000 (Moderate) CFU/ML Organism 2 NORMAL EMERITA [place] Count 10-25,000 (Moderate) CFU/ML Routine sensitivity testing of urine isolates of S. saprophyticus is not advised, because infections respond to concentrations achieved in urine of antimicrobial agents commonly used to treat acute, uncomplicated urinary tract infections (e.g. nitrofurantoin, trimethoprim+/- sulfamethoxazole, or a fluoroquinolone). NCC June 2001 * ML - Main Lab . END OF REPORT DEPARTMENT OF PATHOLOGY, [address] [place] [address] Yony Calvert M.D. Director [facility] # [id number] 22 SEE RESULT BELOW Name: LISSETTE RANKIN : [address]: Franklyn Ordaz NP Acct: [id number] Unit: [id number] AGE: 21 Location: [facility] Re06/14/17 SEX: F Status: REG REF SPEC: [id number] SEBASTIEN: 06/14/17-[address]: Franklyn Ordaz NP REQ: [id number] RECD: 06/14/17 STATUS: COMP _ SOURCE: URINE SPDESC: ORDERED: Urine Culture Procedure Result Reported Site Urine Culture Final 06/16/17- 1224 ML No growth of clinically significant organisms * ML - MAIN LAB (PSC1) . END OF REPORT * ML=Testing performed at Main Lab DEPARTMENT OF PATHOLOGY, [address] [place] [address] Yony Calvert M.D. Director [facility] # [id number] 23 [id number] GC/Chlamydia Source?: Endocervical Trichomonas Source: Affirm Vaginal Swab 25 Because ethnic data is not always [...] 15-29 5 Kidney failure <15 (or dialysis) 26 Desirable <150 Borderline high 150-199 High 200-499 Very High >500 27 Desirable <200 Borderline high 200-239 High >239 28 Low <40 Desirable: 40-60 High: >60 29 Desirable <100 Near Optimal 100-129 Borderline high 130-159 High 160-189 Very High >189 30 Potassium reference range changed effective 04/13/14 31 Because ethnic data is not always readily [...] (or dialysis) Procedures Date Code Description Status 10/16/2018 11767 Stress Test Completed 10/16/2018 73336 Stress Test Completed 10/10/2018 04469 ECHO Transthoracic, Real-Time 2D With Doppler And Color Completed Flow 10/10/2018 80832 ECHO Transthoracic, Real-Time 2D With Doppler And Color Completed Flow 09/10/2018 67321 EKG Tracing & Interpretation Completed 08/08/2018 61712 ECG Monitor/Recording W/Visual Superimposition Scanning Completed Encounters Type Date Location Provider Dx Diagnosis Office Visit 11/08/2018 [facility] Internal Oziel Bailey NP F32.89 Other specified 11:40a Medicine - [facility] depressive episodes Office Visit 10/24/2018 [facility] Oziel Bailey NP R00.2 Palpitations 10:20a Medicine - [facility] E55.9 Vitamin D deficiency, unspecified E83.42 Hypomagnesemia Z68.38 Body mass index (BMI) 38.0-38.9, adult Office Visit 09/10/2018 Yolanda Solis. R00.0 Tachycardia, 2:00p Cardiology Richie West unspecified R94.31 Abnormal electrocardiogram [ECG] [EKG] Office Visit 08/02/2018 2:00p [facility] Oziel Lynn, R00.0 Tachycardia, Medicine - [facility] DIRECTOR OF SAFETY unspecified R10.9 Unspecified abdominal pain Office Visit 07/13/2018 9:40a [facility] Oziel Lynn, R10.9 Unspecified Medicine - [facility] DIRECTOR OF SAFETY abdominal pain R10.811 Right upper quadrant abdominal tenderness Office Visit 10/18/2017 11:00a [facility] Oziel Bailey NP J30.89 Other allergic Medicine - [facility] rhinitis Office Visit 06/14/2017 11:40a [facility] Internal Franklyn Ordaz, N39.0 Urinary tract Medicine - [facility] infection, site R not specified N93.8 Other specified abnormal uterine and vaginal bleeding R10.2 Pelvic and perineal pain O26.91 related conditions, unspecified, first trimester F41.9 Anxiety disorder, unspecified Office Visit 05/15/2017 10:40a [facility] Internal Oziel Bailey, F32.89 Other specified Medicine - [facility] DIRECTOR OF SAFETY depressive episodes F41.9 Anxiety disorder, unspecified M79.674 Pain in right toe(s) Office Visit 04/27/2017 9:40a [facility] Dermatology Oscar Johnson, D22.39 Melanocytic nevi MD of other parts of face L81.4 Other melanin hyperpigmentation Office Visit 04/17/2017 2:00p [facility] Oziel Bailey NP Z00.00 Encntr for Medicine - [facility] general adult medical exam w/o abnormal findings F32.89 Other specified depressive episodes F41.9 Anxiety disorder, unspecified D48.5 Neoplasm of uncertain behavior of skin Office Visit 12/26/2016 10:30a Orthopedic Ced F M25.561 Pain in right Services Of MD Carmen knee C.M.A. Office Visit 05/06/2014 11:10a [facility] Heidi V70.0 [facility] Routine AT [facility] Care Facility V77.1 Screening Diabetes Mellitus V77.91 Screening For Lipoid Disorders 719.46 Pain Joint Lower Leg 285.8 Anemia Other Spec 278.00 Obesity Unspec V04.81 Need For Prophylactic Vaccination & Inoculation/Influenza Plan of Treatment Future Appointment(s):02/07/2019 8:40 am - [facility] NP [facility] [facility] - [facility]04/24/2019 9:40 am - Oziel Bailey NP at [facility] Internal Medicine [facility]11/27/2018 - Digna West M.D.R00.2 PalpitationsFollow up:ov prnE55.9 Vitamin D deficiency, tzqosmgnqxeZ11.42 Hypomagnesemia
--- OUTSIDE RECORDS SUMMARY | 2018-11-29 20:26 | XMS REPORT | Continuity of Care Document ---
:1995 External Reference #:[id number] Author Name Jass Leggett Care Team Providers Name Role Phone Oziel Bailey NP Primary Care Physician Unavailable Payers Date Identification Numbers Payment Provider Subscriber Expires: 2016 Policy Number: [id number] [employer] Lissette Spivey Group Name: [id number] [address] [address] PayID: [id number] [place] [address] Effective: 2013 Policy Number: [employer] Lissette Spivey [id number] Expires: 2013 PayID: [id number] [address] [address] [place] [address] Effective: 2016 Policy Number: [id number] Javed Spivey Group Name: [id number] [address] PayID: [id number] [place] [address] Problems Active Problems Provider Date Depressive disorder Oziel Bailey NP Onset: 04/23/2017 Anxiety Oziel Bailey NP Onset: 04/23/2017 Family History Date Family Member(s) Observation Comments General Asthma brother Mother 40 Children 1 Social History Type Date Description Comments Sex Unknown Marital Status Lives With Occupation Currently Working works at [employer] ETOH Use Denies alcohol use ETOH Use Occasionally consumes alcohol Tobacco Use Start: Unknown Patient has never smoked Recreational Drug Use Denies Drug Use Smoking Status Reviewed: 11/08/18 Patient has never smoked Exercise Type/Frequency Does not exercise Exercise Type/Frequency 3 young children Allergies, Adverse Reactions, Alerts Description No Known Drug Allergies Medications Active Medications SIG Qnty Indications Ordering Provider Date Sertraline HCL 2 by mouth every Oziel Bailey NP 11/08/2018 100mg day Tablets Vitamin D3 Ultra 1 by mouth once 12tabs E55.9 Oziel Bailey NP 10/24/2018 Potency weekly for 12 47966Tikv weeks . Tablets Magnesium Oxide One tablet [...] CPT Code Status Date Vaccine Lot # 47765 Given 05/06/2014 Flu Vaccine Split Virus Preservative Free For Indiv [id number] 3Yr Older 59165 Given 04/13/2010 Hepatitis A Vaccine Pediatric/Adolescent Dosage 2 Dose Schedule 91127 Given 07/03/2009 Meningitis MCV4 MenACWY Meningococcal Conjugate Vaccine 47098 Given 04/08/2009 Hepatitis A Vaccine Pediatric/Adolescent Dosage 2 Dose Schedule 44430 Given 10/02/2008 Gardasil (HPV) 01416 Given 09/18/2008 Gardasil (HPV) 92953 Given 03/26/2008 Varicella (Chicken Pox) Immunization 28195 Given 03/20/2008 Gardasil (HPV) 21526 Given 08/31/2006 Tdap - Tetanus/Diptheria/Acellular Pertussis 63036 Given 08/31/2006 Gardasil (HPV) 89414 Given 08/11/2006 Tdap - Tetanus/Diptheria/Acellular Pertussis 57993 Given 08/18/1998 DTaP Vaccine Younger Than 7 53268 Given 08/18/1998 Measles Mumps And Rubella MMR 96901 Given 08/18/1998 IPV/Poliomyelitis Immunization 84352 Given 08/22/1996 Varicella (Chicken Pox) Immunization 98745 Given 12/22/1994 IPV/Poliomyelitis Immunization 49261 Given 12/22/1994 Measles Mumps And Rubella MMR 93661 Given 12/22/1994 DTaP Vaccine Younger Than 7 75027 Given 02/24/1994 IPV/Poliomyelitis Immunization 47031 Given 02/24/1994 DTaP Vaccine Younger Than 7 72786 Given 1993 Hep B Pediatric/Adolescent 98347 Given 1993 IPV/Poliomyelitis Immunization 62865 Given 1993 DTaP Vaccine Younger Than 7 99245 Given 1993 Hep B Pediatric/Adolescent 90015 Given 1993 IPV/Poliomyelitis Immunization 88185 Given 1993 DTaP Vaccine Younger Than 7 89001 Given 1993 Hep B Pediatric/Adolescent Vital Signs Date Vital Result Comment 11/08/2018 11:43am Height 65 inches 5'5" Weight [...] H/L Range Note CBC Auto Diff 09/27/2018 [facility] White Blood 5.8 10^3/uL N 3.5-10.[address] [place] [address] [phone] Red Blood Count 4.55 10^6/uL N 3.70-4.87 [...] Red Blood Cells % 0.1 Inr/Protime 09/27/2018 [facility] Inr 0.99 N 0.77-1.02 [address] [place] [address] [phone] Laboratory test 09/27/2018 [facility] Partial 31.2 seconds N 26.0-36.3 finding [address] [facility] [place] [address] PTT [phone] D Dimer Quantitative < 200 ng/mL N Less Than 230 1 Troponin-I (TnI) 0.01 ng/mL <0.04 2 HCG < 0.60 mIU/mL 3 Comp Metabolic Panel 09/27/2018 [facility] Sodium 140 mmol/L N 135-145 [address] [place] [address] [phone] Potassium 3.6 mmol/L N 3.5-5.0 Chloride 106 [...] Egfr 147.4 >60 4 Laboratory test 09/27/2018 [facility] Magnesium 1.8 mg/dL Low 1.9-2.7 finding [address] [place] [address] [phone] TSH (Thyroid Stim Horm) 1.56 mcIU/mL N 0.34-5.60 Laboratory test finding 09/13/2018 [facility] Cortisol 7.38 g/ dL 5 [address] [place] [address] [phone] Magnesium 1.9 mg/dL N 1.9-2.7 Iron 73 g/dL N 50-212 Iron & Iron 09/13/2018 [facility] Unsaturated Iron < 374 g/dL Binding Capacity [address] [place] [address] [phone] Total Iron Binding Capacity 389 g/dL N 250-450 Transferrin 278 mg/dL N 203-362 % Iron Saturation 19 % N 15-55 Vitamin B12 And 09/13/2018 [facility] Vitamin B12 365 pg/mL N 180-914 [address] [place] [address] [phone] Folic Acid (Folate) 13.32 ng/mL >3.99 Laboratory 09/13/2018 [facility] Vitamin D Total 12.7 ng/mL Low 20-50 test finding [address] [place] [address] [phone] Urine Drug SCR 07/28/2018 [facility] Amphetamine Ur None None ED & Pain [address] Screen [place] [address] [phone] Barbiturates Urine Screen None Detected None Detect Benzodiazepine Urine Screen None Detected None Detect Urine Cannabinoids Screen Presumptive Posi <SEE NOTE> Abnormal None Detect 7 Urine Cocaine Screen None Detected None Detect Urine Opiates Screen None Detected None Detect Urine Phencyclidine Screen None Detected None Detect 8 Urinalysis Profile 07/28/2018 [facility] Urine Color Yellow [address] [place] [address] [phone] Urine Appearance Clear Urine Specific Golden 1.054 High 1.010-1.030 Urine pH 6.0 N 5-9 Urine Urobilinogen Negative Negative Urine Ketones Negative Negative Urine Protein Negative Negative Urine Leukocytes Negative Negative Urine Blood Negative Negative Urine Nitrite Negative Negative Urine Bilirubin Negative Negative Urine Glucose Negative Negative Laboratory test 07/28/2018 [facility] Troponin-I 0.01 ng/mL < 0.04 [address] (TnI) [place] [address] [phone] CBC Auto Diff 07/28/2018 [facility] White Blood 5.4 N 3.5- 10.[address] Count 10^3/[place] [address] [phone] Red Blood Count 4.53 10^6/uL N 4.00-5.40 [...] Blood Cells % 0.1 Laboratory test 07/28/2018 [facility] D Dimer 295 ng/mL High Less [address] Quantitative Than 230 [place] [address] [phone] Comp Metabolic 07/28/2018 [facility] Sodium 139 N 135-[address] mmol/[place] [address] [phone] Potassium 3.6 mmol/L N 3.5-5.0 Chloride 105 [...] Egfr 114.9 >60 11 Laboratory test 07/28/2018 [facility] Troponin-I (TnI) 0.00 ng/ mL <0.04 [address] [place] [address] [phone] HCG < 0.60 mIU/mL 13 TSH (Thyroid Stim Horm) 0.84 mcIU/mL N 0.34-5.60 CBC Auto Diff 07/16/2018 [facility] White Blood 4.9 10^3/uL N 3.5-10.[address] [place] [address] [phone] Red Blood Count 4.51 10^6/uL N 4.00-5.40 [...] Cells % 0 Comp Metabolic Panel 07/16/2018 [facility] Sodium 140 mmol/L N 135-[address] [place] [address] [phone] Potassium 3.9 mmol/L N 3.5-5.0 Chloride 106 [...] Egfr 143.1 >60 14 Laboratory test 07/16/2018 [facility] Lipase < 10 U/L Low 11.0 -82.[address] [place] [address] [phone] Laboratory test 07/16/2018 [facility] Helico Negative Negative [address] [place] [address] Antigen- [phone] Stool CBC Auto Diff 02/25/2018 [facility] White 14.5 10^3/uL High 3.5-10.[address] [place] [address] Count [phone] Red Blood Count 4.10 10^6/uL N 4.00-5.40 [...] Cells % 0 Comp Metabolic Panel 02/25/2018 [facility] Sodium 137 mmol/L N 135-[address] [place] [address] [phone] Potassium 3.7 mmol/L N 3.5-5.0 Chloride 104 [...] Egfr 140.5 >60 16 Laboratory test 02/25/2018 [facility] C Reactive 66.52 mg/L High <8.[address] [place] [address] [phone] Lactic Acid 1.6 mmol/L N 0.5-2.0 17 Blood Culture SEE RESULT BELOW 18 Urine Culture And 02/25/2018 [facility] Urine SEE RESULT [address] [place] [address] [phone] Comp Metabolic 11/06/2017 [facility] Sodium 135 mmol/L Low 139 -[address] [place] [address] [phone] Potassium 3.9 mmol/L N 3.5-5.0 Chloride 106 [...] 232.0 >60 20 CBC Auto Diff 11/06/2017 [facility] White Blood 9.0 10^3/uL N 3.5-10.[address] [place] [address] [phone] Red Blood Count 3.77 10^6/uL Low 4.0-5.4 [...] Blood Cells % 0.1 Laboratory test 11/06/2017 [facility] Erythrocyte Sed 91 mm/Hr High 0-[address] Rate [place], [place] [phone] Urine Culture And 11/06/2017 [facility] Urine Culture SEE RESULT [address] [place] [address] [phone] Urinalysis Profile 11/06/2017 [facility] Urine Color Straw [address] [place] [address] [phone] Urine Appearance Clear Urine Specific Golden 1.004 Low 1.010-1.030 Urine pH 8.0 N [...] Present Abnormal Absent Urine Culture And 06/14/2017 [facility] Urine Culture SEE RESULT [address] [place] [address] [phone] Ua Routine 06/14/2017 [facility] Ua Specific 1.010 Golden Ua PH 6 Ua Color yellow Ua Appera cloudy Ua WBC trace Ua Protein trace Ua Glucose norm Ua Ketones neg Ua Bilirubin neg Ua Urobilinogen norm Ua Nitrite neg Ua Occult Blood 250 Urinalysis Profile 06/14/2017 [facility] Urine Color Yellow [address] [place] [address] [phone] Urine Appearance Turbid Urine Specific Golden 1.018 N 1.010-1.030 Urine pH 8.0 N [...] Amorphous Crystals Present Abnormal Absent Laboratory 06/14/2017 [facility] Trichomonas Negative Negative 23, 24 test finding [address] [place] [address] [phone] GC/Chlamydia 06/14/2017 [facility] Chlamydia Negative Negative Amplified Rna [address] [place] [address] [phone] Neisseria gonorrhoeae (GC) Rna Negative Negative CBC Auto Diff 04/17/2017 [facility] White Blood 6.0 10^3/uL N 3.5-10.[address] [place] [address] [phone] Red Blood Count 4.40 10^6/uL N 4.0-5.4 [...] % 0 N Comp Metabolic Panel 04/17/2017 [facility] Sodium 138 mmol/L N 133-[address] [place] [address] [phone] Potassium 4.1 mmol/L N 3.5-5.0 Chloride 105 [...] Egfr 147.9 N >60 25 Laboratory 04/17/2017 [facility] TSH (Thyroid Stim 0.90 N 0.34 -5.[address] Horm) mcIU/[place] [address] [phone] Lipid Profile 05/09/2014 [facility] Triglycerides 101 mg/dL N 26 (Trig/Chol/HDL [address] ) [place] [address] [phone] Cholesterol 127 mg/dL N 27 HDL Cholesterol 38.7 mg/dL N 28 LDL Cholesterol 68 mg/dL N 29 Comp Metabolic Panel 05/09/2014 [facility] Sodium 137 mmol/L N 133-[address] [place] [address] [phone] Potassium 3.8 mmol/L N 3.5-5.0 30 Chloride [...] 154.9 N >60 31 Laboratory test 05/09/2014 [facility] TSH (Thyroid 0.78 N 0.34 -5.[address] Stimulating IU/[place] [address] Horm) [phone] CBC Auto Diff 05/09/2014 [facility] White Blood 4.0 Low 4.8- 10.[address] Count 10^3/[place] [address] [phone] Red Blood Count 4.57 10^6/uL N 4.0-5.4 [...] <15 (or dialysis) 15 Test Performed by: [address] [address] 16 Because ethnic data is not always [...] 5 Kidney failure <15 (or dialysis) 17 [facility] Severe Sepsis and Septic Shock Management Bundle Measure requires all lactic acids initially measuring >2.0 mmol/L be repeated. 18 SEE RESULT BELOW Name: LISSETTE SPIVEY : [address]: Hank Lomax MD Acct: [id number] Unit: [id number] AGE: 22 Location: ED Re02/25/18 SEX: F Status: DEP ER SPEC: [id number] SEBASTIEN: 02/25/[address] [facility] [address]: Hank Lomax MD REQ: [id number] RECD: 02/25/18 STATUS: LEWIS ARROYO DR: Oziel Bailey MANAGER SPECIAL EVENTS _ SOURCE: BLOOD,VENO SPDESC: ORDERED: Blood Cult Procedure Result Reported Site Aerobic Culture Bottle Final 03/02/18- 2110 ML No Growth Day 5 Anaerobic Culture Bottle Final 03/02/182110 ML No Growth Day 5 * ML - Main Lab . END OF REPORT DEPARTMENT OF PATHOLOGY, [address] [place] [address] Yony Calvert M.D. Director [facility] # [id number] 19 SEE RESULT BELOW Name: ALLYSSALISSETTE : [address]: Hank Lomax MD Acct: [id number] Unit: [id number] AGE: 22 Location: ED Re02/25/18 SEX: F Status: DEP ER SPEC: [id number] SEBASTIEN: 02/25/[address] [facility] [address]: Hank Lomax MD REQ: [id number] RECD: 02/25/18 STATUS: LEWIS ARROYO DR: Oziel Bailey MANAGER SPECIAL EVENTS _ SOURCE: URINE SPDESC: ORDERED: Urine Culture Procedure Result Reported Site Urine Culture Final 02/27/18- 1121 ML Organism 1 STREP GROUP B [place] Count 1-10,000 (Few) CFU/ML Organism 2 NORMAL EMERITA [place] Count 10-25,000 (Moderate) CFU/ML Susceptibility testing of penicillins and other B-lactams approved by FDA for treatment of Streptococcus pyogenes (Group A Strep) and Streptococcus agalactiae (Group B Strep) is not necessary for clinical purposes and need not be done routinely, since as with vancomycin, resistant strains have not been recognized. (CLSI I730-E59;p.66) Positive isolates will be saved for one week. Please call the Microbiology Laboratory if further susceptibility testing is needed. * ML - Main Lab . END OF REPORT DEPARTMENT OF PATHOLOGY, [address] [place] [address] Yony Calvert M.D. Director [facility] # [id number] 20 Because ethnic data is not always [...] [address]: Tarik Mendoza MD Acct: [id number] Unit: [id number] AGE: 22 Location: ED Re11/06/17 SEX: F Status: DEP ER SPEC: [id number] SEBASTIEN: 11/06/[address] [facility] [address]: Tarik Mendoza MD REQ: [id number] RECD: 11/06/17 STATUS: LEWIS ARROYO DR: Oziel Bailey MANAGER SPECIAL EVENTS _ SOURCE: URINE SPDESC: ORDERED: Urine Culture Procedure Result Reported Site Urine Culture Final 11/08/17- 1112 ML Organism 1 STAPHYLOCOCCUS SAPROPHYTICUS [place] Count 25-50,000 (Moderate) CFU/ML Organism 2 NORMAL EMERITA [place] Count 10-25,000 (Moderate) CFU/ML Routine sensitivity testing of urine isolates of S. saprophyticus is not advised, because infections respond to concentrations achieved in urine of antimicrobial agents commonly used to treat acute, uncomplicated urinary tract infections (e.g. nitrofurantoin, trimethoprim+/- sulfamethoxazole, or a fluoroquinolone). NCC June 2001 * ML - Main Lab . END OF REPORT DEPARTMENT OF PATHOLOGY, [address] [place] [address] Yony Calvert M.D. Director [facility] # [id number] 22 SEE RESULT BELOW Name: MARIO LACKLISSETTE BECKHAM : [address]: Franklyn Ordaz NP Acct: [id number] Unit: [id number] AGE: 21 Location: [facility] Re06/14/17 SEX: F Status: REG REF SPEC: [id number] SEBASTIEN: 06/14/[address]: Franklyn Ordaz NP REQ: [id number] RECD: 06/14/17 STATUS: COMP _ SOURCE: URINE SPDESC: ORDERED: Urine Culture Procedure Result Reported Site Urine Culture Final 06/16/17- 1224 ML No growth of clinically significant organisms * ML - MAIN LAB ([facility]) . END OF REPORT * ML=Testing performed at Main Lab DEPARTMENT OF PATHOLOGY, [address] [place] [address] Yony Calvert M.D. Director [facility] # [id number] 23 [id number] GC/Chlamydia Source?: Endocervical Trichomonas Source: Affirm Vaginal [...] dialysis) Procedures Date Code Description Status 10/16/2018 75466 Stress Test Completed 10/16/2018 75522 Stress Test Completed 10/10/2018 99891 ECHO Transthoracic, Real-Time 2D With Doppler And Color Completed Flow 10/10/2018 03811 ECHO Transthoracic, Real-Time 2D With Doppler And Color Completed Flow 09/10/2018 50820 EKG Tracing & Interpretation Completed 08/08/2018 68971 ECG Monitor/Recording W/Visual Superimposition Scanning Completed Encounters Type Date Location Provider Dx Diagnosis Office Visit 10/24/2018 10:20a [facility] Internal Medicine Oziel Lynn, MANAGER [employer] EVENTS R00.2 Palpitations E55.9 Vitamin D deficiency, unspecified E83.42 Hypomagnesemia Z68.38 Body mass index (BMI) 38.0-38.9, adult Office Visit 09/10/2018 Yolanda Solis. R00.0 Tachycardia, 2:00p Cardiology Richie West unspecified R94.31 Abnormal electrocardiogram [ECG] [EKG] Office Visit 08/02/2018 2:00p [facility] Internal Oziel Lynn, R00.0 Tachycardia, Medicine [employer]NAGER [employer]ENTS unspecified R10.9 Unspecified abdominal pain Office Visit 07/13/2018 9:40a [facility] Internal Oziel Lynn, R10.9 Unspecified Medicine MANAGER [employer] abdominal pain R10.811 Right upper quadrant abdominal tenderness Office Visit 10/18/2017 11:00a [facility] Internal Oziel Bailey MANAGER [employer] EVENTS J30.89 Other allergic Medicine rhinitis Office Visit 06/14/2017 11:40a [facility] Internal Dionnaa Orlin, N39.0 Urinary tract Medicine - [place] [employer] infection, site Rd not specified N93.8 Other specified abnormal uterine and vaginal bleeding R10.2 Pelvic and perineal pain O26.91 related conditions, unspecified, first trimester F41.9 Anxiety disorder, unspecified Office Visit 05/15/2017 10:40a [facility] Internal Oziel Lynn, F32.89 Other specified Medicine MANAGER [employer]ENTS depressive episodes F41.9 Anxiety disorder, unspecified M79.674 Pain in right toe(s) Office Visit 04/27/2017 9:40a [facility] Dermatology Oscar Johnson, D22.39 Melanocytic nevi of other parts of face L81.4 Other melanin hyperpigmentation Office Visit 04/17/2017 2:00p [facility] Internal Oziel Bailey NP Z00.00 Encntr for Medicine general adult medical exam w/o abnormal findings F32.89 Other specified depressive episodes F41.9 Anxiety disorder, unspecified D48.5 Neoplasm of uncertain behavior of skin Office Visit 12/26/2016 10:30a Orthopedic Ced F M25.561 Pain in right Services Of MD Carmen knee C.M.A. Office Visit 05/06/2014 11:10a [facility] Internal Heidi V70.0 Examination Medicine Richie Cobb General Medical Routine AT Health Care Facility V77.1 Screening Diabetes Mellitus V77.91 Screening For Lipoid Disorders 719.46 Pain Joint Lower Leg 285.8 Anemia Other Spec 278.00 Obesity Unspec V04.81 Need For Prophylactic Vaccination & Inoculation/Influenza Plan of Treatment Future Appointment(s):02/07/2019 8:40 am - Oziel Bailey NP at [facility] Internal Kmrwzyaq29/13/2019 9:40 am - Oziel Bailey NP at [facility] Internal Bnzyttny44/18/2019 10:00 am - Digna West M.D. at [facility]11/08/2018 - Oziel Bailey NPF32.89 Other specified depressive episodesComments:I am willing to take over prescribing your medications. If you feel like you need to get back in with a counselor let me know.Follow up:3 months
--- OUTSIDE RECORDS SUMMARY | 2018-11-29 20:26 | XMS REPORT | Continuity of Care Document ---
:1995 External Reference #:[id number] Author Name Don Wells Care Team Providers Name Role Phone Oziel Bailey NP Primary Care Physician Unavailable Payers Date Identification Numbers Payment Provider Subscriber Expires: 2016 Policy Number: [id number] [employer] Lissette Spivey Group Name: [id number] [address] [address] PayID: [id number] [place] [address] Effective: 2013 Policy Number: [employer] Lissette Spivey [id number] Expires: 2013 PayID: [id number] [address] [address] [place] [address] Effective: 2016 Policy Number: [id number] Javed Spivey Group Name: [id number] [address] PayID: [id number] [place] [address] Problems Active Problems Provider Date Depressive disorder Oziel Bailey NP Onset: 04/23/2017 Anxiety Oziel Bailey NP Onset: 04/23/2017 Family History Date Family Member(s) Observation Comments General Asthma brother Mother 40 Children 1 Social History Type Date Description Comments Sex Unknown Marital Status Lives With Occupation Currently Working works at [employer] ETOH Use Denies alcohol use ETOH Use [...] Bailey NP 10/24/2018 Potency weekly for 12 [id number] weeks . Tablets Magnesium Oxide One tablet [...] Oxalate 1 tablet daily 30tabs F32.89 Oziel Baliey NP 2016 - (pt not taking) 10/07/2017 10mg Tablets Naproxen Take 1 tab every 60tabs Ced F - 500mg 12 hours as MD Carmen 04/17/2017 Tablets needed for pain Amoxicillin Thai Albarado, - 875mg 05/14/2017 Tablets Immunizations CPT Code Status Date Vaccine Lot # 13400 Given 05/06/2014 Flu Vaccine Split Virus Preservative Free For Indiv [id number] 3Yr Older 73674 Given 04/13/2010 Hepatitis A Vaccine Pediatric/Adolescent Dosage 2 Dose Schedule 31888 Given 07/03/2009 Meningitis MCV4 MenACWY Meningococcal Conjugate Vaccine 07658 Given 04/08/2009 Hepatitis A Vaccine Pediatric/Adolescent Dosage 2 Dose Schedule 85224 Given 10/02/2008 Gardasil (HPV) 65124 Given 09/18/2008 Gardasil (HPV) 79494 Given 03/26/2008 Varicella (Chicken Pox) Immunization 59721 Given 03/20/2008 Gardasil (HPV) 72090 Given 08/31/2006 Tdap - Tetanus/Diptheria/Acellular Pertussis 91621 Given 08/31/2006 Gardasil (HPV) 02423 Given 08/11/2006 Tdap - Tetanus/Diptheria/Acellular Pertussis 37372 Given 08/18/1998 DTaP Vaccine Younger Than 7 30844 Given 08/18/1998 Measles Mumps And Rubella MMR 25619 Given 08/18/1998 IPV/Poliomyelitis Immunization 91429 Given 08/22/1996 Varicella (Chicken Pox) Immunization 79830 Given 12/22/1994 IPV/Poliomyelitis Immunization 96502 Given 12/22/1994 Measles Mumps And Rubella MMR 97975 Given 12/22/1994 DTaP Vaccine Younger Than 7 23825 Given 02/24/1994 IPV/Poliomyelitis Immunization 10007 Given 02/24/1994 DTaP Vaccine Younger Than 7 02555 Given 1993 Hep B Pediatric/Adolescent 03550 Given 1993 IPV/Poliomyelitis Immunization 90405 Given 1993 DTaP Vaccine Younger Than 7 35375 Given 1993 Hep B Pediatric/Adolescent 02150 Given 1993 IPV/Poliomyelitis Immunization 84351 Given 1993 DTaP Vaccine Younger Than 7 16311 Given 1993 Hep B Pediatric/Adolescent Vital Signs [...] H/L Range Note CBC Auto Diff 09/27/2018 [facility] White Blood 5.8 10^3/uL N 3.5-10.[address] [place] [address] [phone] Red Blood Count 4.55 10^6/uL N 3.70-4.87 [...] Red Blood Cells % 0.1 Inr/Protime 09/27/2018 [facility] Inr 0.99 N 0.77-1.[address] [place] [address] [phone] Laboratory test 09/27/2018 [facility] Partial 31.2 seconds N 26.0-36.[address] [place] [address] PTT [phone] D Dimer Quantitative < 200 ng/mL N Less Than 230 1 Troponin-I (TnI) 0.01 ng/mL <0.04 2 HCG < 0.60 mIU/mL 3 Comp Metabolic Panel 09/27/2018 [facility] Sodium 140 mmol/L N 135-[address] [place] [address] [phone] Potassium 3.6 mmol/L N 3.5-5.0 Chloride 106 [...] Egfr 147.4 >60 4 Laboratory test 09/27/2018 [facility] Magnesium 1.8 mg/dL Low 1.9-2.[address] [place] [address] [phone] TSH (Thyroid Stim Horm) 1.56 mcIU/mL N 0.34-5.60 Laboratory test finding 09/13/2018 [facility] Cortisol 7.38 g/ dL [address] [place] [address] [phone] Magnesium 1.9 mg/dL N 1.9-2.7 Iron 73 g/dL N 50-212 Iron & Iron 09/13/2018 [facility] Unsaturated Iron < 374 g/dL Binding Capacity [address] [place] [address] [phone] Total Iron Binding Capacity 389 g/dL N 250-450 Transferrin 278 mg/dL N 203-362 % Iron Saturation 19 % N 15-55 Vitamin B12 And 09/13/2018 [facility] Vitamin B12 365 pg/mL N 180-914 [address] [place] [address] [phone] Folic Acid (Folate) 13.32 ng/mL >3.99 Laboratory 09/13/2018 [facility] Vitamin D Total 12.7 ng/mL Low 20-[address]) [place] [address] [phone] Urine Drug SCR 07/28/2018 [facility] Amphetamine Ur None None ED & Pain 101 [place] [address] [phone] Barbiturates Urine Screen None Detected None Detect Benzodiazepine Urine Screen None Detected None Detect Urine Cannabinoids Screen Presumptive Posi <SEE NOTE> Abnormal None Detect 7 Urine Cocaine Screen None Detected None Detect Urine Opiates Screen None Detected None Detect Urine Phencyclidine Screen None Detected None Detect 8 Urinalysis Profile 07/28/2018 [facility] Urine Color Yellow [address] [place] [address] [phone] Urine Appearance Clear Urine Specific Waterfall 1.054 High 1.010-1.030 Urine pH 6.0 N 5-9 Urine Urobilinogen Negative Negative Urine Ketones Negative Negative Urine Protein Negative Negative Urine Leukocytes Negative Negative Urine Blood Negative Negative Urine Nitrite Negative Negative Urine Bilirubin Negative Negative Urine Glucose Negative Negative Laboratory test 07/28/2018 [facility] Troponin-I 0.01 ng/mL < 0.04 [address] (TnI) [place] [address] [phone] CBC Auto Diff 07/28/2018 [facility] White Blood 5.4 N 3.5- 10.[address] Count 10^3/[place] [address] [phone] Red Blood Count 4.53 10^6/uL N 4.00-5.40 [...] Blood Cells % 0.1 Laboratory test 07/28/2018 [facility] D Dimer 295 ng/mL High Less [address] Quantitative Than 230 [place] [address] [phone] Comp Metabolic 07/28/2018 [facility] Sodium 139 N 135-[address] mmol/[place] [address] [phone] Potassium 3.6 mmol/L N 3.5-5.0 Chloride 105 [...] Egfr 114.9 >60 11 Laboratory test 07/28/2018 [facility] Troponin-I (TnI) 0.00 ng/ mL <0.04 [address] [place] [address] [phone] HCG < 0.60 mIU/mL 13 TSH (Thyroid Stim Horm) 0.84 mcIU/mL N 0.34-5.60 CBC Auto Diff 07/16/2018 [facility] White Blood 4.9 10^3/uL N 3.5-10.[address] [place] [address] [phone] Red Blood Count 4.51 10^6/uL N 4.00-5.40 [...] Cells % 0 Comp Metabolic Panel 07/16/2018 [facility] Sodium 140 mmol/L N 135-[address] [place] [address] [phone] Potassium 3.9 mmol/L N 3.5-5.0 Chloride 106 [...] Egfr 143.1 >60 14 Laboratory test 07/16/2018 [facility] Lipase < 10 U/L Low 11.0 -82.[address] [place] [address] [phone] Laboratory test 07/16/2018 [facility] Helico Negative Negative [address] [place] [address] Antigen- [phone] Stool CBC Auto Diff 02/25/2018 [facility] White 14.5 10^3/uL High 3.5-10.[address] [place] [address] Count [phone] Red Blood Count 4.10 10^6/uL N 4.00-5.40 [...] Cells % 0 Comp Metabolic Panel 02/25/2018 [facility] Sodium 137 mmol/L N 135-[address] [place] [address] [phone] Potassium 3.7 mmol/L N 3.5-5.0 Chloride 104 [...] Egfr 140.5 >60 16 Laboratory test 02/25/2018 [facility] C Reactive 66.52 mg/L High <8.[address] [place] [address] [phone] Lactic Acid 1.6 mmol/L N 0.5-2.0 17 Blood Culture SEE RESULT BELOW 18 Urine Culture And 02/25/2018 [facility] Urine SEE RESULT [address] [place] [address] [phone] Comp Metabolic 11/06/2017 [facility] Sodium 135 mmol/L Low 139 -[address] [place] [address] [phone] Potassium 3.9 mmol/L N 3.5-5.0 Chloride 106 [...] 232.0 >60 20 CBC Auto Diff 11/06/2017 [facility] White Blood 9.0 10^3/uL N 3.5-10.[address] [place] [address] [phone] Red Blood Count 3.77 10^6/uL Low 4.0-5.4 [...] Blood Cells % 0.1 Laboratory test 11/06/2017 [facility] Erythrocyte Sed 91 mm/Hr High 0-[address] Rate [place], [place] [address] [phone] Urine Culture And 11/06/2017 [facility] Urine Culture SEE RESULT [address] [place] [address] [phone] Urinalysis Profile 11/06/2017 [facility] Urine Color Straw [address] [place] [address] [phone] Urine Appearance Clear Urine Specific Waterfall 1.004 Low 1.010-1.030 Urine pH 8.0 N [...] Present Abnormal Absent Urine Culture And 06/14/2017 [facility] Urine Culture SEE RESULT [address] [place] [address] [phone] Ua Routine 06/14/2017 [facility] Ua Specific 1.010 Waterfall Ua PH 6 Ua Color yellow Ua Appera cloudy Ua WBC trace Ua Protein trace Ua Glucose norm Ua Ketones neg Ua Bilirubin neg Ua Urobilinogen norm Ua Nitrite neg Ua Occult Blood 250 Urinalysis Profile 06/14/2017 [facility] Urine Color Yellow [address] [place] [address] [phone] Urine Appearance Turbid Urine Specific Waterfall 1.018 N 1.010-1.030 Urine pH 8.0 N [...] Amorphous Crystals Present Abnormal Absent Laboratory 06/14/2017 [facility] Trichomonas Negative Negative 23, 24 test finding [address] [place] [address] [phone] GC/Chlamydia 06/14/2017 [facility] Chlamydia Negative Negative Amplified Rna [address] [place] [address] [phone] Neisseria gonorrhoeae (GC) Rna Negative Negative CBC Auto Diff 04/17/2017 [facility] White Blood 6.0 10^3/uL N 3.5-10.[address] [place] [address] [phone] Red Blood Count 4.40 10^6/uL N 4.0-5.4 [...] % 0 N Comp Metabolic Panel 04/17/2017 [facility] Sodium 138 mmol/L N 133-[address] [place] [address] [phone] Potassium 4.1 mmol/L N 3.5-5.0 Chloride 105 [...] Egfr 147.9 N >60 25 Laboratory 04/17/2017 [facility] TSH (Thyroid Stim 0.90 N 0.34 -5.[address] Horm) mcIU/[place] [address] [phone] Lipid Profile 05/09/2014 [facility] Triglycerides 101 mg/dL N 26 (Trig/Chol/HDL [address] ) [place] [address] [phone] Cholesterol 127 mg/dL N 27 HDL Cholesterol 38.7 mg/dL N 28 LDL Cholesterol 68 mg/dL N 29 Comp Metabolic Panel 05/09/2014 [facility] Sodium 137 mmol/L N 133-[address] [place] [address] [phone] Potassium 3.8 mmol/L N 3.5-5.0 30 Chloride [...] 154.9 N >60 31 Laboratory test 05/09/2014 [facility] TSH (Thyroid 0.78 N 0.34 -5.[address] Stimulating IU/[place] [address] Horm) [phone] CBC Auto Diff 05/09/2014 [facility] White Blood 4.0 Low 4.8- 10.[address] Count 10^3/[place] [address] [phone] Red Blood Count 4.57 10^6/uL N 4.0-5.4 [...] <15 (or dialysis) 15 Test Performed by: [address] [address] 16 Because ethnic data is not always [...] 5 Kidney failure <15 (or dialysis) 17 [facility] Severe Sepsis and Septic Shock Management Bundle Measure requires all lactic acids initially measuring >2.0 mmol/L be repeated. 18 SEE RESULT BELOW Name: LISSETTE SPIVEY : [address]: Hank Lomax MD Acct: [id number] Unit: [id number] AGE: 22 Location: ED Re02/25/18 SEX: F Status: DEP ER SPEC: [id number] SEBASTIEN: 02/25/[address] [facility] [address]: Hank Lomax MD REQ: [id number] RECD: 02/25/18 STATUS: LEWIS ARROYO DR: Oziel Bailey MANAGEMENT INSTRUCTOR _ SOURCE: BLOOD,VENO SPDESC: ORDERED: Blood Cult Procedure Result Reported Site Aerobic Culture Bottle Final 03/02/18- 2110 ML No Growth Day 5 Anaerobic Culture Bottle Final 03/02/182110 ML No Growth Day 5 * ML - Main Lab . END OF REPORT DEPARTMENT OF PATHOLOGY, [address] [place] [address] Yony Calvert M.D. Director [facility] # [id number] 19 SEE RESULT BELOW Name: ALLYSSALISSETTE : [address]: Hank Lomax MD Acct: [id number] Unit: [id number] AGE: 22 Location: ED Re02/25/18 SEX: F Status: DEP ER SPEC: [id number] SEBASTIEN: 02/25/[address] [facility] [address]: Hank Lomax MD REQ: [id number] RECD: 02/25/18 STATUS: LEWIS ARROYO DR: Oziel Bailey MANAGEMENT INSTRUCTOR _ SOURCE: URINE SPDESC: ORDERED: Urine Culture Procedure Result Reported Site Urine Culture Final 02/27/18- 1121 ML Organism 1 STREP GROUP B [place] Count 1-10,000 (Few) CFU/ML Organism 2 NORMAL EMERITA [place] Count 10-25,000 (Moderate) CFU/ML Susceptibility testing of penicillins and other B-lactams approved by FDA for treatment of Streptococcus pyogenes (Group A Strep) and Streptococcus agalactiae (Group B Strep) is not necessary for clinical purposes and need not be done routinely, since as with vancomycin, resistant strains have not been recognized. (CLSI Z580-H77;p.66) Positive isolates will be saved for one week. Please call the Microbiology Laboratory if further susceptibility testing is needed. * ML - Main Lab . END OF REPORT DEPARTMENT OF PATHOLOGY, [address] [place] [address] Yony Calvert M.D. Director [facility] # [id number] 20 Because ethnic data is not always [...] [address]: Tarik Mendoza MD Acct: [id number] Unit: [id number] AGE: 22 Location: ED Re11/06/17 SEX: F Status: DEP ER SPEC: [id number] SEBASTIEN: 11/06/17-[address] [facility] [address]: Tarik Mendoza MD REQ: [id number] RECD: 11/06/17 STATUS: LEWIS ARROYO DR: Oziel Bailey MANAGEMENT INSTRUCTOR _ SOURCE: URINE SPDESC: ORDERED: Urine Culture Procedure Result Reported Site Urine Culture Final 11/08/17- 1112 ML Organism 1 STAPHYLOCOCCUS SAPROPHYTICUS [place] Count 25-50,000 (Moderate) CFU/ML Organism 2 NORMAL EMERITA [place] Count 10-25,000 (Moderate) CFU/ML Routine sensitivity testing of urine isolates of S. saprophyticus is not advised, because infections respond to concentrations achieved in urine of antimicrobial agents commonly used to treat acute, uncomplicated urinary tract infections (e.g. nitrofurantoin, trimethoprim+/- sulfamethoxazole, or a fluoroquinolone). NCC June 2001 * ML - Main Lab . END OF REPORT DEPARTMENT OF PATHOLOGY, [address] [place] [address] Yony Calvert M.D. Director [facility] # [id number] 22 SEE RESULT BELOW Name: MARIODEEP ARMSTRONGLISSETTE : [address]: Franklyn Ordaz NP Acct: [id number] Unit: [id number] AGE: 21 Location: [facility] Re06/14/17 SEX: F Status: REG REF SPEC: [id number] SEBASTIEN: 06/14/171309 SUBM DR: Franklyn Ordaz NP REQ: [id number] RECD: 06/14/17 STATUS: COMP _ [facility]: Urine Culture Procedure Result Reported Site Urine Culture Final 06/16/17- 1224 ML No growth of clinically significant organisms * ML - MAIN LAB ([facility]) . END OF REPORT * ML=Testing performed at Main Lab DEPARTMENT OF PATHOLOGY, [address] [place] [address] Yony Calvert M.D. Director [facility] # [id number] 23 [id number] GC/Chlamydia Source?: Endocervical Trichomonas Source: Affirm Vaginal [...] dialysis) Procedures Date Code Description Status 10/16/2018 92454 Stress Test Completed 10/16/2018 79798 Stress Test Completed 10/10/2018 98812 ECHO Transthoracic, Real-Time 2D With Doppler And Color Completed Flow 10/10/2018 03771 ECHO Transthoracic, Real-Time 2D With Doppler And Color Completed Flow 09/10/2018 55231 EKG Tracing & Interpretation Completed 08/08/2018 84234 ECG Monitor/Recording W/Visual Superimposition Scanning Completed Encounters Type Date Location Provider Dx Diagnosis Office Visit 11/08/2018 [facility] Oziel Bailey NP F32.89 Other specified [facility] 10/24/2018 [facility] Oziel Bailey NP R00.2 Palpitations 10:20a [facility] E55.9 Vitamin D deficiency, unspecified E83.42 Hypomagnesemia Z68.38 Body mass index (BMI) 38.0-38.9, adult Office Visit 09/10/2018 Yolanda Sawyer S. R00.0 Tachycardia, 2:00p Cardiology Richie West unspecified R94.31 Abnormal electrocardiogram [ECG] [EKG] Office Visit 08/02/2018 2:00p [facility] Oziel Lynn, R00.0 Tachycardia, Medicine - [facility] MANAGEMENT INSTRUCTOR unspecified R10.9 Unspecified abdominal pain Office Visit 07/13/2018 9:40a [facility] Oziel Lynn, R10.9 Unspecified Medicine - [facility] MANAGEMENT INSTRUCTOR abdominal pain R10.811 Right upper quadrant abdominal tenderness Office Visit 10/18/2017 11:00a [facility] Oziel Bailey NP J30.89 Other allergic Medicine - [facility] rhinitis Office Visit 06/14/2017 11:40a [facility] Dionnaa Orlin, N39.0 Urinary 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, site R not specified N93.8 Other specified abnormal uterine and vaginal bleeding R10.2 Pelvic and perineal pain O26.91 related conditions, unspecified, first trimester F41.9 Anxiety disorder, unspecified Office Visit 05/15/2017 10:40a [facility] Oziel Lynn, F32.89 Other specified [facility] MA[facility]GEMENT INSTRUCTOR depressive episodes F41.9 Anxiety disorder, unspecified M79.674 Pain in right toe(s) Office Visit 04/27/2017 9:40a [facility] D[facility]at[facility] Oscar Petersenzer, D22.39 Melanocytic nevi of other parts of face L81.4 Other melanin hyperpigmentation Office Visit 04/17/2017 2:00p [facility] Oziel Bailey NP Z00.00 En[facility]tr for Medicine - [facility] general adult medical exam w/o abnormal findings F32.89 Other specified depressive episodes F41.9 Anxiety disorder, unspecified D48.5 Neoplasm of uncertain behavior of skin Office Visit 12/26/2016 10:30a Orthopedic Ced F M25.561 Pain in right Services Of MD Carmen knee C.M.A. Office Visit 05/06/2014 11:10a [facility] Heidi V70.0 [facility] General Medical Routine AT Health Care Facility V77.1 Screening Diabetes Mellitus V77.91 Screening For Lipoid Disorders 719.46 Pain Joint Lower Leg 285.8 Anemia Other Spec 278.00 Obesity Unspec V04.81 Need For Prophylactic Vaccination & Inoculation/Influenza Plan of Treatment Future Appointment(s):02/07/2019 8:40 am - Oziel Bailey NP at [facility] 9:40 am - Oziel Bailey NP at [facility] Internal Medicine - [facility]11/27/2018 10:00 am - Digna West M.D. at [facility]11/08 - Oziel Bailey NPF32.89 Other specified depressive episodesComments:I am willing to take over prescribing your medications. If you feel like you need to get back in with a counselor let me know.Follow up:3 months
--- OUTSIDE RECORDS SUMMARY | 2018-11-29 20:26 | XMS REPORT | Continuity of Care Document ---
:1995 External Reference #:[id number] Author Name Aimee Garcia CNM Address [address] [place] [address] Care Team Providers Name Role Phone Gurwinder Orr M.D. Care Team Information Intellectual Property Counsel Unavailable Payers Date Identification Numbers Payment Provider Subscriber Effective: 2012 Policy Number: [id number] [facility] Lissette Ruiz Expires: 2014 PayID: [id number] [address] [address] [place] [address] Effective: 2014 Policy Number: [id number] [facility] Lissette Ruiz PayID: [id number] [address] [place] [address] Policy Number: [id number] [place] Lissette Ruiz PayID: [id number] [address] [place] [address] Problems Active Problems Provider Date Major depressive disorder Nancy Chahal CNM Onset: 04/12/2018 Resolved Problems Multigravida Kristin Clayton NP Onset: 11/25/2014 Resolved: 09/21/2016 Family History Date Family Member(s) Observation Comments Father Unknown Mother Depression Mother Anxiety Mother PTSD Mother borderline personality disorder Children 3 First Son A&W First Daughter A&W Second Daughter A&W Siblings 1/2 siblings 4 on mother's side, 3 on father's side, all A&W First Brother A&W First Sister Depression Second Sister A&W Third Sister A&W Fourth Sister A&W Fifth Sister A&W Sixth Sister A&W Paternal Grandfather Unknown Paternal Grandmother Unknown Maternal Grandfather A&W Maternal Grandmother due to COPD () Social History Type Date Description Comments Sex Unknown Education Highest level completed, 1 year of college Marital Status Lives With Spouse Lives With Son Lives With Daughters Pets 2 cats Occupation Homemaker Environmental Hazards Not exposed to any environmental hazards Environmental Hazards Low Lead Risk Tobacco Use Start: Unknown Never Smoked Cigarettes ETOH Use Alcohol Use Prior To ETOH Use occ holiday drink Tobacco Use Start: Unknown Patient has never smoked Recreational Drug Use Does Not Use Drugs Smoking Status Reviewed: 03/16/18 Patient has never smoked Exercise Type/Frequency Exercises rarely Seat Belt/Car Seat Always uses seat belt Contraceptive Methods Current methods include condoms STD's Trichomoniasis Allergies, Adverse Reactions, Alerts Description No Known Drug Allergies Medications Active Medications SIG Qnty Indications Ordering Provider Date Sertraline HCL 2 tab by mouth Unknown 100mg every day Tablets History Medications Terconazole one applicator at 20gm Geraldine Chakraborty, 07/31/2017 - 0.8% night by way of LM 09/19/2017 Cream vagina x 3 days. Keflex 1 by mouth three 21caps Jillian Bray, 06/21/2017 - 500mg times a day ANP-C 06/28/2017 Capsules Flagyl take 4 tablets by 4tabs Geraldine Chakraborty, 04/13/2017 - 500mg mouth on day one. LM 05/16/2017 Tablets Loestrin 1.5/30 1 by mouth every 84tabs Z30.49 Jillian Bray, 12/05/2016 - (21) day ANP-C 04/12/2017 1.5-30mg-mcg Tablets No Active Kristin Clayton NP 09/21/2016 - Medications 11/21/2016 Nystatin Use under breasts 30gm Tanika 06/17/2015 - bid prn usha Hernandez MD 08/05/2015 [id number]/GM Powder Colace one capsule by 60caps Geraldine Chakraborty, 06/10/2015 - 100mg mouth, up to three LM 08/05/2015 Capsules times a day as needed Ferrous Gluconate one tablet by 30tabs Geraldine Chakraborty, 04/15/2015 - mouth once a day LM 09/20/2016 324(38Fe) mg Tablets No Active Unknown 05/31/2013 - Medications 11/25/2014 Ferrous Gluconate 1 po bid 60tabs Tanika 01/24/2013 - MD David 05/31/2013 324(38Fe) mg Tablets + Dha 1 po qd 90units Unknown - 05/31/2013 27-1&250mg Misc Vitamins 1 by mouth every Unknown - day 08/05/2015 Tablets Claritin-D 12 Hour Unknown - 05/16/2017 Lexapro Unknown - 5mg 07/24/2017 Vitamins 1 by mouth every Unknown - day. please 03/16/2018 28-0.8mg Tablets substitute any vitamin with 100-300 mcg dha covered by insurance Sertraline HCL 1 po qd Unknown - 10/05/2018 100mg Tablets Amoxicillin Unknown - 03/16/2018 Augmentin Unknown - 04/12/2018 Medications Administered in Office Medication SIG Qnty Indications Ordering Provider Date PT SCRN Tbco Id as Non User Aimee Garcia CNM 11/09/2018 Injection PT SCRN Tbco Id as Non User Aimee Garcia CNM 10/05/2018 Injection PT SCRN Tbco Id as Non User Lavern Spencer MD 03/16/2018 Injection Immunizations CPT Code Status Date Vaccine Lot # [id number] Given 11/29/2017 Tetnus, Diptheria Toxoids And Acellular Pertussis, [id number] PT > 7Yrs Old 60714 Given 03/31/2015 Influenza Virus Vaccine Split Virus Use For [id number] Individual 3Yr Older 45974 Given 03/28/2013 Influenza Virus Vaccine Split Virus Use For Individual 3Yr Older 87200 Given 01/10/2013 Diptheria,Tetanus Toxoids And Acelluar Pertussis [id number] Vaccine+Hib Vital Signs Date Vital Result Comment 11/09/2018 10:45am BP Systolic 118 mmHg BP Diastolic 74 mmHg Height 64 inches 5'4" Weight 235.00 lb BMI (Body Mass Index) 40.3 kg/m2 Last Menstrual Period 9402099 4 Parity 3 10/05/2018 10:56am BP Systolic 108 mmHg BP Diastolic 64 mmHg Height 64 inches 5'4" Weight 227.00 lb BMI (Body Mass Index) 39.0 kg/m2 Last Menstrual Period 7028690 4 Parity 3 04/12/2018 3:17pm BP Systolic 114 mmHg BP Diastolic 68 mmHg Height 64 inches 5'4" Weight 229.00 lb BMI (Body Mass Index) 39.3 kg/m2 Last Menstrual Period 3686036 4 Parity 3 03/16/2018 9:50am BP Systolic 116 mmHg BP Diastolic 66 mmHg Body Temperature 98.5 F Oral Height 64 inches 5'4" Weight 219.00 lb BMI (Body Mass Index) 37.6 kg/m2 Last Menstrual Period 5303110 4 Parity 2 07/24/2017 1:46pm BP Systolic 104 mmHg BP Diastolic 64 mmHg Height 64 inches 5'4" Weight 216.00 lb BMI (Body Mass Index) 37.1 kg/m2 Last Menstrual Period 9835218 4 Parity 2 06/21/2017 10:08am BP Systolic 120 mmHg BP Diastolic 80 mmHg Height 64 inches 5'4" Weight 215.00 lb BMI (Body Mass Index) 36.9 kg/m2 Last Menstrual Period 5379764 4 Parity 2 05/16/2017 12:59pm BP Systolic 124 mmHg BP Diastolic 80 mmHg Height 64 inches 5'4" Last Menstrual Period 6714111 3 Parity 2 04/12/2017 10:49am BP Systolic 118 mmHg BP Diastolic 72 mmHg Height 64 inches 5'4" Weight 198.00 lb BMI (Body Mass Index) 34.0 kg/m2 Last Menstrual Period 7629587 3 Parity 2 12/05/2016 9:55am BP Systolic 116 mmHg BP Diastolic 70 mmHg Height 64 inches 5'4" Weight 195.00 lb BMI (Body Mass Index) 33.5 kg/m2 Last Menstrual Period 2543545 3 Parity 2 11/22/2016 11:09am BP Systolic 120 mmHg BP Diastolic 82 mmHg Height 64 inches 5'4" Weight 195.00 lb BMI (Body Mass Index) 33.5 kg/m2 Last Menstrual Period 3765951 3 Parity 2 11/21/2016 10:56am BP Systolic 130 mmHg BP Diastolic 86 mmHg Height 64 inches 5'4" Weight 195.00 lb BMI (Body Mass Index) 33.5 kg/m2 Last Menstrual Period 1872084 3 Parity 2 09/21/2016 10:43am BP Systolic 122 mmHg BP Diastolic 90 mmHg Height 64 inches 5'4" Weight 201.00 lb BMI (Body Mass Index) 34.5 kg/m2 Last Menstrual Period 8398762 3 Parity 2 08/05/2015 1:19pm BP Systolic 120 mmHg BP Diastolic 64 mmHg Height 64 inches 5'4" Weight 211.00 lb BMI (Body Mass Index) 36.2 kg/m2 Last Menstrual Period 6958875 2 Parity 2 11/25/2014 9:16am BP Systolic 122 mmHg BP Diastolic 68 mmHg Height 64 inches 5'4" Weight 201.00 lb BMI (Body Mass Index) 34.5 kg/m2 Last Menstrual Period 4518336 2 Parity 1 05/31/2013 11:10am BP Systolic 120 mmHg BP Diastolic 74 mmHg Height 64 inches 5'4" Weight 209.00 lb BMI (Body Mass Index) 35.9 kg/m2 Last Menstrual Period 2640088 del 04/22/13 1 Parity 1 09/26/2012 1:36pm BP Systolic 118 mmHg BP Diastolic 80 mmHg Height 64 inches 5'4" Weight 190.00 lb BMI (Body Mass Index) 32.6 kg/m2 Last Menstrual Period 7636069 1 09/04/2012 1:34pm BP Systolic 124 mmHg BP Diastolic 72 mmHg Height 64 inches 5'4" Weight 194.00 lb BMI (Body Mass Index) 33.3 kg/m2 Last Menstrual Period 1326275 1 Results Test Date Facility Test Result H/L Range Note Urine Culture And 03/16/2018 [facility] Urine Culture SEE RESULT 1 [place] [address] BELOW [phone] Laboratory test 02/20/2018 [facility] Surgical SEE RESULT 2 [place] [address] Pathology BELOW [phone] Laboratory test 01/30/2018 [facility] Genital For SEE RESULT 3 [place] [address] GRP B Strep BELOW [phone] Only Laboratory test 11/29/2017 [facility] Glucose 1 HR 129 mg/dL N 70-160 [place] [address] Post Prandial [phone] CBC With No Diff 11/29/2017 [facility] White Blood 7.7 10^3/uL N 3.5-10.8 [place] [address] Count [phone] Red Blood Count 3.77 10^6/uL Low 4.00-5.40 Hemoglobin 10.4 g/dL Low 12.0-16.0 Hematocrit 31 % Low 35-47 Mean Corpuscular Volume 82 fL N 80-97 Mean Corpuscular Hemoglobin 28 pg N 27-31 Mean Corpuscular HGB Conc 34 g/dL N 31-36 Red Cell Distribution Width 14 % N 10.5-15 Platelet Count 253 10^3/uL N 150-450 Mean Platelet Volume 7.9 um3 N 7.4-10.4 Urine Drug 08/25/2017 [facility] Urine Amphetamine Negative ng/ mL 4 Comp 20 Test [place] [id number] [phone] Urine Barbiturates Negative ng/mL 5 Urine Benzodiazepines Negative ng/mL 6 Urine Cocaine Negative ng/mL 7 Urine Phencyclidine Negative ng/mL Cutoff: 25 Urine Tetrahydrocannabinol Negative ng/mL Cutoff: 50 8 Creatinine, Urine 185.3 mg/dL Specific [place] 1.016 pH 6.5 Oxidants Negative 9 Adulterants Comment Normal Codeine, Ur Not Detected ng/mL Cutoff: 25 10 Odfadvw-3-ubcb-glucuronide, Ur Not Detected ng/mL 11 Morphine, Ur Not Detected ng/mL Cutoff: 25 12 Wednhvwc-2-opxi-glucuronide, U Not Detected ng/mL 13 6-monoacetylmorphine, Ur Not Detected ng/mL Cutoff: 25 14 Hydrocodone, Ur Not Detected ng/mL Cutoff: 25 15 Norhydrocodone, Ur Not Detected ng/mL Cutoff: 25 16 Dihydrocodeine, Ur Not Detected ng/mL Cutoff: 25 17 Hydromorphone, Ur Not Detected ng/mL Cutoff: 25 18 Twnasphdpheal6reaukoykqimipga Not Detected ng/mL 19 Oxycodone, Ur Not Detected ng/mL Cutoff: 25 20 Noroxycodone, Ur Not Detected ng/mL Cutoff: 25 21 Oxymorphone, Ur Not Detected ng/mL Cutoff: 25 22 Xogeajwnixq-6-wqoa-glucuronide Not Detected ng/mL 23 Noroxymorphone, Ur Not Detected ng/mL Cutoff: 25 24 Fentanyl, Ur Not Detected ng/mL Cutoff: 2 25 Norfentanyl, Ur Not Detected ng/mL Cutoff: 2 26 Meperidine, Ur Not Detected ng/mL Cutoff: 25 27 Normeperidine, Ur Not Detected ng/mL Cutoff: 25 28 Naloxone, Ur Not Detected ng/mL Cutoff: 25 29 Cvyguyxc-6-otiw-glucuronide, U Not Detected ng/mL 30 Methadone, Ur Not Detected ng/mL Cutoff: 25 31 Eddp, Ur Not Detected ng/mL Cutoff: 25 32 Propoxyphene, Ur Not Detected ng/mL Cutoff: 25 33 Norpropoxyphene, Ur Not Detected ng/mL Cutoff: 25 34 Tramadol, Ur Not Detected ng/mL Cutoff: 25 35 O-desmethyltramadol, Ur Not Detected ng/mL Cutoff: 25 36 Tapentadol, Ur Not Detected ng/mL Cutoff: 25 37 N-desmethyltapentadol, Ur Not Detected ng/mL Cutoff: 50 38 Daicckgugi-aigz-hmvprharrkk, U Not Detected ng/mL 39 Buprenorphine, Ur Not Detected ng/mL Cutoff: 5 40 Norbuprenorphine, Ur Not Detected ng/mL Cutoff: 5 41 Norbuprenorphine glucuronide Not Detected ng/mL Cutoff: 20 42 Opioid Interpretation See Comment 43 Laboratory test 07/24/2017 [facility] Gardnerella/Yeast: SEE RESULT 44 [place] [address] Vaginal Dna BELOW [phone] Urine Culture 07/24/2017 [facility] Urine Culture SEE RESULT 45 [place] [address] BELOW Sensitivities [phone] Laboratory test 07/24/2017 [facility] Trichomonas Negative Negative [address] [place] [address] vaginalis Result [phone] GC/Chlamydia 07/24/2017 [facility] Chlamydia Negative [place] [address] trachomatis Rna [phone] Neisseria gonorrhoeae (GC) Rna Negative Negative PNL No 07/24/2017 [facility] Rubella Screen Immune IU/ mL Immune 47 [place] [address] [phone] Hemoglobin A1c 5.1 % N 4.0-5.6 48 Hepatitis B Surface Ag Nonreactive Nonreactive 49 Syphillis Igg W/Reflex RPR Nonreactive Nonreactive 50 CBC With No 07/24/2017 [facility] White Blood 6.7 10^3/uL N 3.5-10.8 [place] [address] Count [phone] Red Blood Count 4.39 10^6/uL N 4.0-5.4 Hemoglobin 11.6 g/dL Low 12.0-16.0 Hematocrit 36 % N 35-47 Mean Corpuscular Volume 83 fL N 80-97 Mean Corpuscular Hemoglobin 27 pg N 27-31 Mean Corpuscular HGB Conc 32 g/dL N 31-36 Red Cell Distribution Width 15 % N 10.5-15 Platelet Count 315 10^3/uL N 150-450 Mean Platelet Volume 8 um3 N 7.4-10.4 Type And Screen 07/24/2017 [facility] Patient [place] [address] [phone] Antibody Screen NEGATIVE Laboratory test 07/24/2017 [facility] Cytology SEE RESULT 51 [place] [address] BELOW [phone] Parvovirus B19 07/24/2017 [facility] Parvovirus Positive Negative Igg [place] [address] (B19) IgG [phone] Antibody Parvovirus (B19) IgM Antibody Negative Negative Parvovirus Interpretation See Comment 52 Lead 07/24/2017 [facility] Lead <1.0 g/dL 0.0-4.9 53 [place] [address] [phone] Submitting Laboratory 54 HIV 1/2 AB 07/24/2017 [facility] HIV 1 2 Nonreactive Nonreactive 55 [place] [address] Antibody [phone] Laboratory 07/06/2017 [facility] HCG 58320.00 56 [place] [address] mIU/mL [phone] Laboratory 07/04/2017 [facility] HCG 34387.00 57 [place] [address] mIU/mL [phone] Laboratory 06/23/2017 [facility] HCG 2512.00 58 [place] [address] mIU/mL [phone] Urine Culture 06/21/2017 [facility] Urine SEE RESULT 59 [place] [address] Culture BELOW Sensitivities [phone] Laboratory 06/21/2017 [facility] HCG 721.63 60 [place] [address] mIU/mL [phone] Laboratory 04/12/2017 [facility] Trichomonas Positive Abnorm Negative 61 [place] [address] vaginalis al [phone] Result GC/Chlamydia 04/12/2017 [facility] Chlamydia Negative N [place] [address] trachomatis [phone] Rna Neisseria gonorrhoeae (GC) Rna Negative N Negative Laboratory 04/12/2017 [facility] Gardnerella/Yeast: SEE RESULT 62 [place] [address] Vaginal Dna BELOW [phone] Thyroid 11/22/2016 [facility] Thyroid Stim Hormone 0.7 mIU/L N 0.3 63 [place] [address] -4. [place] [phone] 2 Laboratory 09/21/2016 [facility] HCG 2.37 N 64 [place] [address] mIU/mL [phone] Laboratory 07/07/2015 [facility] Surgical Pathology SEE RESULT 65 [place] [address] BELOW [phone] Hemoglobin/Hem 07/07/2015 [facility] Hematocrit 19 % Low 35- [place] [address] 47 [phone] Hemoglobin 6.0 g/dL Low 12.0-16.0 66 CBC With No 07/07/2015 [facility] Hemoglobin 6.0 g/dL Low 12.0 -16.0 67 [place] [address] [phone] Hematocrit 19 % Low 35-47 White Blood Count 12.1 10^3/uL High 3.5-10.8 Red Blood Count 2.30 10^6/uL Low 4.0-5.4 Mean Corpuscular Volume 83 fL N 80-97 Mean Corpuscular Hemoglobin 26 pg Low 27-31 Mean Corpuscular HGB Conc 32 g/dL N 31-36 Red Cell Distribution Width 17 % High 10.5-15 Platelet Count 352 10^3/uL N 150-450 Mean Platelet Volume 7 um3 Low 7.4-10.4 CBC Auto 07/07/2015 [facility] White Blood 11.1 10^3/uL High 3.5-10.8 [place] [address] Count [phone] Red Blood Count 3.00 10^6/uL Low 4.0-5.4 Hemoglobin 8.0 g/dL Low 12.0-16.0 Hematocrit 25 % Low 35-47 Mean Corpuscular Volume 82 fL N 80-97 Mean Corpuscular Hemoglobin 27 pg N 27-31 Mean Corpuscular HGB Conc 32 g/dL N 31-36 Red Cell Distribution Width 17 % High 10.5-15 Platelet Count 425 10^3/uL N 150-450 Mean Platelet Volume 7 um3 Low 7.4-10.4 Abs Neutrophils 7.4 10^3/uL N 1.5-7.7 Abs Lymphocytes 2.2 10^3/uL N 1.0-4.8 Abs Monocytes 1.1 10^3/uL High 0-0.8 Abs Eosinophils 0.4 10^3/uL N 0-0.6 Abs Basophils 0.1 10^3/uL N 0-0.2 Abs Nucleated RBC 0.01 10^3/uL N Granulocyte % 67.1 % N 38-83 Lymphocyte % 19.5 % Low 25-47 Monocyte % 9.6 % High 1-9 Eosinophil % 3.3 % N 0-6 Basophil % 0.5 % N 0-2 Nucleated Red Blood Cells % 0.1 N Protime 07/07/2015 [facility] Inr 1.10 N 0.89-1.11 [place] [address] [phone] Laboratory test 07/07/2015 [facility] Activated 29.9 seconds N 26.0-36.3 [place] [address] Partial [phone] Thrombo Time Type And Screen 07/07/2015 [facility] Patient [place] [address] Type [phone] Antibody Screen NEGATIVE N 68 Laboratory test 07/07/2015 [facility] Packed Cells SEE RESULTS 69 [place] [address] BELO <SEE [phone] NOTE> Laboratory test 05/27/2015 [facility] Genital For GRP SEE RESULT 70 [place] [address] B Strep Only BELOW [phone] Glucose Tolerance 04/07/2015 [facility] GTT 3HR (SEE NOTE) N 71 3[place] [address] Gestational [phone] CBC With No Diff 03/31/2015 [facility] White Blood 7.9 10^3/uL N 4.8-1 [place] [address] Count 0.8 [phone] Red Blood Count 3.54 10^6/uL Low 4.0-5.4 Hemoglobin 9.8 g/dL Low 12.0-16.0 Hematocrit 31 % Low 35-47 Mean Corpuscular Volume 86 fL N 80-97 Mean Corpuscular Hemoglobin 28 pg N 27-31 Mean Corpuscular HGB Conc 32 g/dL N 31-36 Red Cell Distribution Width 14 % N 10.5-15 Platelet Count 261 10^3/uL N 150-450 Mean Platelet Volume 8 um3 N 7.4-10.4 Laboratory test 03/31/2015 [facility] Glucose 1 HR Post 146 mg/ dL N 70-160 [place] [address] Prandial [phone] Sequential 01/21/2015 [facility] Interpretation SEE BELOW 72 Integreated SCRN 2 SD Risk For Ontd 1:4400 Age Risk Down Syndrome 1:[facility] [place] Risk <1:5000 <1:270 [facility] [place] Trisomy 18 Risk <1:5000 <1:100 Calculated Gestational Age 17.4 73 Afp,Serum 45.0 ng/mL Afp Mom 1.37 74 HCG,Serum 24.5 IU/mL HCG Mom 0.96 Estriol,Free 1.01 ng/mL Estriol Mom 0.95 Inhibin A,Dimeric 129 pg/mL Inhibin A Mom 0.86 Eloy-A 755 ng/mL Eloy-A Mom 1.63 NT Mom 1.02 75 Referring Physician Name GURWINDER ORR Referring Physician Phone [phone] Referring Physician Npi [id number] Specimen # From Part 1 [id number] Date Of 1995 Collection Date 01/21/2015 Maternal Weight 201 lbs Est'd Date Of Delivery 06/27/2015 Nuchal Translucency 1.5 mm [place] Rump Length 65 mm Ultrasound Date 12/19/2014 Nasal Bone NOT GIVEN Mother's Ethnic Origin Insulin Depend Diabetic N Repeat Specimen N Number Of Fetuses 1 HX Of Neural Tube Defects NA Twin B Nasal Bone NG 76 Lead Blood 12/19/2014 [facility] Sample Type VENOUS Lead,Blood LESS THAN 3 g/dL 0-9 Sequential Integrated SCRN 1 [place] 12/19/2014 [facility] Interpretation SEE BELOW 77 Age Risk Down Syndrome 1:830 SK[facility]ER Down Syndrome Risk IN PROCESS <1:50 [place] Trisomy 18 Risk IN PROCESS <1:100 Calculated Gestational Age 12.7 78 Eloy-A 755 ng/mL Eloy-A Mom 1.63 HCG,Serum 58.6 IU/mL HCG Mom 0.63 NT Mom 1.02 79 Referring Physician Name KRISTIN CLAYTON 80 Referring Physician Phone [phone] Referring Physician Npi [id number] Date Of 1995 83 Collection Date 12/19/2014 84 Maternal Weight 201 lbs 85 Est'd Date Of Delivery 06/27/2015 86 JOY Determined By U 87 Mother's Ethnic Origin A 88 Number Of Fetuses 1 89 Insulin Depend Diabetic N 90 Repeat Specimen N 91 HX Of Neural Tube Defects NA 92 Prev Down Synd N 93 Donor Egg N 94 Donor Age:Egg Retrieval NOT GIVEN 95 Ultrasound Date 12/19/2014 96 Addiction Social Worker's Name RAOUL 97 NTQR Addiction Social Worker Id# [id number] NTQR Location Id# [id number] NTQR Reading Phys Id# [id number] FMF Addiction Social Worker Id# NOT GIVEN 101 [place] Rump Length 65 mm 102 Nuchal Translucency 1.5 mm 103 Nasal Bone NOT GIVEN 104 If Twins NOT GIVEN 105 Twin B CRL NG mm 106 Twin B NT NG mm 107 Twin B Nasal Bone NG 108 PNL No 12/19/2014 [facility] Rubella Screen Immune IU/ mL N Immune Urine [place], [place] 0493854 [phone] Hemoglobin A1c 5.0 % N Less than 6.0 109 Hepatitis B Surface Ag Nonreactive N Nonreactive 110 RPR 12/19/2014 [facility] Pediatric/Maternal YES N [place], [place] 1714931 [phone] RPR Nonreactive N Nonreactive RPR Titer TNP N Syphilis IgG TNP N Nonreactive CBC With No 12/19/2014 [facility] White Blood 6.3 10^3/uL N 4.8-10.8 [place] [address] Count [phone] Red Blood Count 4.18 10^6/uL N 4.0-5.4 Hemoglobin 11.4 g/dL Low 12.0-16.0 Hematocrit 34 % Low 35-47 Mean Corpuscular Volume 82 fL N 80-97 Mean Corpuscular Hemoglobin 27 pg N 27-31 Mean Corpuscular HGB Conc 33 g/dL N 31-36 Red Cell Distribution Width 14 % N 10.5-15 Platelet Count 271 10^3/uL N 150-450 Mean Platelet Volume 9 um3 N 7.4-10.4 Type And Screen 12/19/2014 [facility] Patient [place] [address] [phone] Antibody Screen NEGATIVE N HIV 1/2 AB 12/19/2014 [facility] HIV 1 2 Nonreactive N Nonreactive [address] [place] [address] Antibody [phone] Urine Culture 11/25/2014 [facility] Urine Culture SEE RESULT [address] [place] [address] BELOW Sensitivities [phone] GC/Chlamydia 11/25/2014 [facility] Chlamydia Negative N [place] [address] trachomatis [phone] Rna Neisseria gonorrhoeae (GC) Rna Negative N Negative 113 Laboratory test 11/25/2014 [facility] Cytology SEE RESULT [address] [place] [address] BELOW [phone] Laboratory test 04/22/2013 [facility] RUN DATE: [address] [place] [address] Pathology 04/24/ <SEE [phone] NOTE> Laboratory test 03/21/2013 [facility] B Strep (SEE NOTE) [address] [place] [address] Culture Screen [phone] CBC With No Diff 01/10/2013 [facility] White Blood 8.3 10^3/uL 4.8-1 [place] [address] Count 0.8 [phone] Red Blood Count 3.39 10^6/uL Low 4.0-5.4 Hemoglobin 10.1 g/dL Low 12.0-16.0 Hematocrit 29 % Low 35-47 Mean Corpuscular Volume 86 fL 80-97 Mean Corpuscular Hemoglobin 30 pg 27-31 Mean Corpuscular HGB Conc 35 g/dL 31-36 Red Cell Distribution Width 14 % 10.5-15 Platelet Count 188 10^3/uL 150-450 Mean Platelet Volume 9 um3 7.4-10.4 Glucose Tolerance 01/10/2013 [facility] GTT 2HR Gestational ( SEE NOTE) 117 2[place] [address] [phone] Sequential 10/26/2012 [facility] Interpretation SEE BELOW 118 Integreated SCRN 2 SD Risk For Ontd 1:4200 Age Risk Down Syndrome 1:1100 SK[place] Down Syndrome Risk <1:5000 <1:270 [place] Trisomy 18 Risk <1:5000 <1:100 Calculated Gestational Age 15.0 119 Afp,Serum 30.6 NG/ML Afp Mom 1.16 120 HCG,Serum 28.3 IU/mL HCG Mom 0.89 Estriol,Free 0.44 NG/ML Estriol Mom 1.24 Inhibin A,Dimeric 179 pg/mL Inhibin A Mom 1.10 Eloy-A 415 NG/ML Eloy-A Mom 1.24 NT Mom 1.50 121 Referring Physician Name GURWINDER ORR Referring Physician Phone [phone] Referring Physician Npi [id number] Specimen # From Part 1 [id number] Date Of 1995 Collection Date 10/26/2012 Maternal Weight 190 LBS Est'd Date Of Delivery 04/16/2013 Nuchal Translucency 1.70 MM [place] Rump Length 43.0 MM Ultrasound Date 09/26/2012 Nasal Bone N/A Mother's Ethnic Origin OTHER Insulin Depend Diabetic NO Repeat Specimen NO Number Of Fetuses 1 HX Of Neural Tube Defects NO Twin B Nasal Bone NG Urine Culture And 09/26/2012 [facility] Urine Culture (SEE NOTE ) [address] [place] [address] [phone] GC/Chlamydia Dna 09/26/2012 [facility] GC/Chlamydia Rna (SEE NOTE) [address] [place] [address] [phone] Sequential 09/26/2012 [facility] Interpretation SEE BELOW 124 Integrated SCRN 1 SD Age Risk Down Syndrome 1:850 [place] Down Syndrome Risk IN PROCESS <1:50 [place] Trisomy 18 Risk IN PROCESS <1:100 Calculated Gestational Age 10.7 125 Eloy-A 415 NG/ML Eloy-A Mom 1.24 HCG,Serum 66.9 IU/mL HCG Mom 1.06 NT Mom 1.50 126 Referring Physician Name GURWINDER ORR Referring Physician Phone [phone] Referring Physician Npi [id number] Date Of 1995 Collection Date 09/26/2012 Maternal Weight 190 LBS Est'd Date Of Delivery 04/16/2013 JOY Determined By U Mother's Ethnic Origin OTHER 127 Number Of Fetuses 1 Insulin Depend Diabetic NO Repeat Specimen NO HX Of Neural Tube Defects NO Brief History (NTD) N/A Prev Down Synd NO Donor Egg NO Donor Age:Egg Retrieval N/A Ultrasound Date Addiction Social Worker's Name RAOUL NTQR Addiction Social Worker Id# [id number] NTQR Location Id# [id number] NTQR Reading Phys Id# [id number] FMF Addiction Social Worker Id# N/A [place] Rump Length 43.0 MM Nuchal Translucency 1.70 MM Nasal Bone N/A If Twins N/A Twin B CRL NG MM Twin B NT NG MM Twin B Nasal Bone NG Hemoglobinopathy 09/26/2012 [facility] Erythrocyte Count 3.95 Mill/uL 3.80- 5.10 Evaluation Hemoglobin 11.3 g/dL Low 11.7-15.5 Hematocrit 34.4 % Low 35.0-45.0 MCV 87.2 FL 80.0-100.0 MCH 28.7 pg 27.0-33.0 RDW 14.1 % 11.0-15.0 Hemoglobin A 97.3 % >96.0 Hemoglobin F 0.1 % <2.0 Hemoglobin A2 2.6 % 1.8-3.5 Interpretation see note 128 Cystic Fibrosis Carrier ([place]) 09/26/2012 [facility] Reported Ethnicity N/P CF Result see note 129 Interpretation see note 130 Mutations/Polymorphisms see note 131 Method see note 132 Reviewer see note 133 HIV 1/2 AB 09/26/2012 [facility] HIV 1 2 Nonreactive Nonreactive 134 [place] [address] Antibody [phone] Type And 09/26/2012 [facility] [place] [address] Blood Type [phone] Antibody Screen NEGATIVE CBC With No 09/26/2012 [facility] White Blood 6.4 10^3/uL 4.8 -10.8 [place] [address] Count [phone] Red Blood Count 3.99 10^6/uL Low 4.0-5.4 Hemoglobin 11.2 g/dL Low 12.0-16.0 Hematocrit 34 % Low 35-47 Mean Corpuscular Volume 86 fL 80-97 Mean Corpuscular Hemoglobin 28 pg 27-31 Mean Corpuscular HGB Conc 33 g/dL 31-36 Red Cell Distribution Width 14 % 10.5-15 Platelet Count 259 10^3/uL 150-450 Mean Platelet Volume 9 um3 7.4-10.4 RPR 09/26/2012 [facility] Syphilis IgG [place] [address] [phone] RPR Nonreactive Nonreactive RPR Titer TNP Pediatric/Maternal YES PNL No 09/26/2012 [facility] Rubella Screen [place] [address] [phone] Hemoglobin A1c 5.4 % Less than 6.0 135 Hepatitis B Surface Antigen Nonreactive Nonreactive 136 1 SEE RESULT BELOW Name: LISSETTE RUIZ : [address]: Lavern Spencer MD Acct: [id number] Unit: [id number] AGE: 22 Location: [facility] Re03/16/18 SEX: F Status: REG REF SPEC: [id number] SEBASTIEN: 03/16/[address] [facility] [address]: Lavern Spencer MD REQ: [id number] RECD: 03/16/18 STATUS: COMP _ SOURCE: URINE SPDES: ORDERED: Urine Culture COMMENTS: [id number] Urine Source: Random Procedure Result Reported Site Urine Culture Final 03/17/18- 1257 ML No Growth (<1,000 CFU/mL) * ML - Main Lab . END OF REPORT DEPARTMENT OF PATHOLOGY, [address] [place] [address] Yony Calvert M.D. Director BREANNA # [id number] 2 SEE RESULT BELOW Name: LISSETTE RUIZ : [address]: Lavern Spencer MD Acct: [id number] Unit: [id number] AGE: 22 Location: [facility] 101-01 Re02/19/18 SEX: F Status: ADM IN SPEC: [id number] SEBASTIEN: 02/20/[address]: Lavern Spencer MD REQ: [id number] RECD: 02/20/18 STATUS: SOUT _ ORDERED: LEVEL 5 FINAL DIAGNOSIS Third trimester placenta (836 g), delivery: -- Three-vessel umbilical cord with no evidence of acute funisitis. -- membranes with no evidence of acute chorioamnionitis. -- Placental disc with mature chorionic villi. CLINICAL HISTORY Maternal max temperature 101.7 in labor, IV antibiotics given. PRE-OPERATIVE DIAGNOSIS Chorioamnionitis in labor GROSS DESCRIPTION The specimen is received in formalin with no source identified and a requisition labeled, Placenta, and consists of an 836 g placenta with attached cord and membranes. The placental disc measures 17.5 x 16.0 x 3.8 cm and has an eccentric inserted 55.2 cm by up to 1.7 cm three-vessel, yellow-white umbilical cord which attaches 4.4 cm from the placental margin. The surface is glistening blue to cardenas with a small amount of subchorionic fibrin deposition. The maternal surface is lobulated and intact with normal cotyledons with scant adherent red-brown blood clot. The cut surface is spongy red-purple. The membranes are thin, translucent, and pliable with mild adherent red-brown blood clot. Received separately in the same container is a 49 g, 9.0 x 7.4 x 22.0 cm aggregate of red-brown blood clot. Grain Inspector sections are submitted in two cassettes. Signed by and Reported on: Jannette Tadeo MD 02/22/18 1025 END OF REPORT DEPARTMENT OF PATHOLOGY, [address] [place] [address] Yony Calvert M.D. Director [facility] # [id number] 3 SEE RESULT BELOW Name: LISSETTE RUIZ : [address]: Heriberto Go MD Acct: [id number] Unit: [id number] AGE: 22 Location: [facility] Re01/30/18 SEX: F Status: REG REF SPEC: [id number] SEBASTIEN: 01/30/18-[address]: Heriberto Go MD REQ: [id number] RECD: 01/30/18 STATUS: COMP _ SOURCE: TRUPTI/VAG/RE SPDESC: ORDERED: Damon Rocha COMMENTS: [id number] QUERIES: Is Patient Penicillin Allergic? N Is patient penicillin allergic and/or sensitivities needed? N Provider Requisition # [id number]_ Procedure Result Reported Site Group B Strep Culture Screen Final 02/01/18- 1137 ML Group B Strep Screen Positive Organism 1 STREP GROUP B Susceptibility testing of penicillins and other B-lactams approved by FDA for treatment of Streptococcus pyogenes (Group A Strep) and Streptococcus agalactiae (Group B Strep) is not necessary for clinical purposes and need not be done routinely, since as with vancomycin, resistant strains have not been recognized. (CLSI T674-T10;p.66) Positive isolates will be saved for one week. Please call the Microbiology Laboratory if further susceptibility testing is needed. * [facility] . END OF REPORT DEPARTMENT OF PATHOLOGY, [address] [place] [address] Yony Calvert M.D. Director BRAIN # [id number] 4 REFERENCE VALUE Cutoff: 500 5 REFERENCE VALUE Cutoff: 200 6 REFERENCE VALUE Cutoff: 100 7 REFERENCE VALUE Cutoff: 150 8 ADDITIONAL INFORMATION This report is intended for use in clinical monitoring or management of patients. It is not intended for use in employment-related testing. 9 REFERENCE VALUE Cutoff: 200 mg/L 10 Tylenol 3 11 Metabolite of codeine REFERENCE VALUE Cutoff: 100 12 Kaylen Kimbrough, MS Contin; Also a minor metabolite (10%) of codeine and can be seen in low concentrations (<2,000 ng/mL) with poppy seed ingestion. 13 Metabolite of morphine REFERENCE VALUE Cutoff: 100 14 Metabolite of heroin 15 Lortab, [place], Vicodin; Also a very minor metabolite of codeine and impurity (<1%) of oxycodone. 16 Metabolite of hydrocodone 17 Metabolite of hydrocodone 18 Dilaudid, Exalgo; Also a metabolite of hydrocodone and a minor (<5%) metabolite of morphine. 19 Metabolite of hydromorphone REFERENCE VALUE Cutoff: 100 20 Endocet, Percocet, Oxycontin 21 Metabolite of oxycodone 22 Numorphan, Opana; Also a metabolite of oxycodone. 23 Metabolite of oxymorphone REFERENCE VALUE Cutoff: 100 24 Metabolite of oxymorphone 25 Actiq, Duragesic, Fentora 26 Metabolite of fentanyl 27 Demerol 28 Metabolite of meperidine 29 Narcan 30 Metabolite of naloxone REFERENCE VALUE Cutoff: 100 31 Dolophine 32 Metabolite of methadone 33 Darvon, Darvocet 34 Metabolite of propoxyphene 35 Tradol, Ultram, Ultracet 36 Metabolite of tramadol 37 Nucynta 38 Metabolite of tapentadol 39 Metabolite of tapentadol REFERENCE VALUE Cutoff: 100 40 Buprenex, Suboxone 41 Metabolite of buprenorphine 42 Metabolite of buprenorphine 43 No opioids were detected. The absence of expected drug(s) and/or drug metabolite(s) may indicate non-compliance, altered pharmacokinetics, inappropriate timing of specimen collection relative to drug administration, diluted/adulterated urine, or limitations of testing. ADDITIONAL INFORMATION This test was developed and its performance characteristics determined by [facility] in a manner consistent with CLIA requirements. This test has not been cleared or approved by the U.S. Food and Drug Administration. Test Performed by: [facility] [address] [place] [id number] 44 SEE RESULT BELOW Name: LISSETTE RUIZ : [address]: Geraldine Chakraborty CM Acct: [id number] Unit: [id number] AGE: 21 Location: [facility] Re07/24/17 SEX: F Status: REG REF SPEC: [id number] SEBASTIEN: 07/24/17-[address]: Geraldine Chakraborty CM REQ: [id number] RECD: 07/25/17 STATUS: COMP _ SOURCE: VAGINAL SPDESC: ORDERED: WilYeast DNA COMMENTS: [id number] Procedure Result Reported Site Gardnerella/Yeast: Vaginal DNA Final 07/26/17- 1109 ML Organism 1 Negative Gardnerella Organism 2 POSITIVE ANDIE The presence of G. vaginalis, although suggestive, [...] therapeutic success or failure. * ML - [facility] ([facility]) . END OF REPORT * ML=Testing performed at Main Lab DEPARTMENT OF PATHOLOGY, [address] [place] [address] Yony Calvert M.D. Director AISSATOUNY # [id number] 45 SEE RESULT BELOW Name: LISSETTE RUIZ : [address]: Geraldine Chakraborty CM Acct: [id number] Unit: [id number] AGE: 21 Location: [facility] Re07/24/17 SEX: F Status: REG REF SPEC: [id number] SEBASTIEN: 07/24/17-[address]: Geraldine Chakraborty CM REQ: [id number] RECD: 07/25/17-1219 STATUS: COMP _ SOURCE: URINE SPDESC: ORDERED: Urine Culture COMMENTS: [id number] Procedure Result Reported Site Urine Culture Final 07/26/17- 1250 ML No Growth (<1,000 CFU/mL) * ML - [facility] ([facility]) . END OF REPORT * ML=Testing performed at Main Lab DEPARTMENT OF PATHOLOGY, [address] [place] [address] Yony Calvert M.D. Director [facility] # [id number] 46 [id number] GC/Chlamydia Source?: Thin Prep Trichomonas Source: Thin Prep 47 [id number] Therapeutic target for the treatment of diabetes mellitus patients is <7% HBA1C, and in selective patients <6.0%. Please refer to [place] [employer] diabetic care guidelines for further information. 49 [id number] 50 Warning: A positive result is not useful for establishing a diagnosis of syphilis. In most situations, such a result may reflect a prior treated infection; a negative result can exclude a diagnosis of syphilis except for incubating or early primary disease. 51 SEE RESULT BELOW Name: LISSETTE RUIZ : [address]: Geraldine Chakraborty CM Acct: [id number] Unit: [id number] AGE: 21 Location: [facility] Re07/24/17 SEX: F Status: REG REF SPEC: [id number] SEBASTIEN: 07/24/17-[address] [facility] [address]: Geraldine Chakraborty CM REQ: [id number] RECD: 07/25/17-120 STATUS: SOUT _ ORDERED: TP IMAGE ANAL COMMENTS: [id number] Negative for Intraepithelial lesion or Malignancy A. Ectocervical/Endocervical Specimen Adequacy: Satisfactory of evaluation Transformation zone component identified Patient Information: HPV: Thin Layer Pap Test w/reflex to high risk HPV RNA testing when ASCUS Actual Specimen Date: 07/24/17 Last Menstrual Date: 05/22/17 Date of Last Specimen: 11/25/14 ?: Y Post Menopausal?: N Hysterectomy?: N Previous Abnormal Pap Smears?:N Signed (signature on file) PIPPA Lopez(ASCP) 07/26 9818 This Pap test was evaluated with the assistance of the OlacabsPrep Test Imaging System. Due to cytologic findings at the radio journalist microscope, comprehensive manual rescreening by a Cable Tool Driller may be required. The Pap Smear is [...] performed at Main Lab DEPARTMENT OF PATHOLOGY, [address] [place] [address] Yony Calvert M.D. Director [facility] # [id number] 52 RESULT: Results suggest past infection. ADDITIONAL INFORMATION This test has been modified from the hl7 developer's instructions. Its performance characteristics were determined by [facility] in a manner consistent with CLIA requirements. This test has not been cleared or approved by the U.S. Food and Drug Administration. Test Performed by: [facility] - [address] [address] 53 ADDITIONAL INFORMATION Testing performed by Inductively Coupled Plasma-Mass Spectrometry (ICP-MS). This test was developed and its performance characteristics determined by [facility] in a manner consistent with CLIA requirements. This test has not been cleared or approved by the U.S. Food and Drug Administration. 54 Test Performed by: [facility] - [address] [address] 55 It is recognized that currently available assays [...] 95% confidence interval of 99.78 to 99.96%. 56 <5.0 Negative 5.0 - 25.0 Indeterminate (Repeat testing recommended after 72 hours) >25.0 Positive Perimenopausal women can display HCG levels of up to 20 mIU/mL 57 <5.0 Negative 5.0 - 25.0 Indeterminate (Repeat testing recommended after 72 hours) >25.0 Positive Perimenopausal women can display HCG levels of up to 20 mIU/mL 58 <5.0 Negative 5.0 - 25.0 Indeterminate (Repeat testing recommended after 72 hours) >25.0 Positive Perimenopausal women can display HCG levels of up to 20 mIU/mL 59 SEE RESULT BELOW Name: LISSETTE RUIZ : [address]: Jillian Acosta Acct: [id number] Unit: [id number] AGE: 21 Location: [facility] Re06/21/17 SEX: F Status: REG REF SPEC: [id number] SEBASTIEN: 06/21/171136 [facility] DR: Jillian Acosta REQ: [id number] RECD: 06/21/17 STATUS: COMP _ SOURCE: URINE SPDESC: ORDERED: Urine Culture COMMENTS: [id number] Urine Source: Random Procedure Result Reported Site Urine Culture Final 06/22/17- 1651 ML No growth of clinically significant organisms * ML - MAIN LAB ([facility]) . END OF REPORT * ML=Testing performed at Main Lab DEPARTMENT OF PATHOLOGY, [address] [place] [address] Yony Calvert M.D. Director [facility] # [id number] 60 <5.0 Negative 5.0 - 25.0 Indeterminate (Repeat testing recommended after 72 hours) >25.0 Positive Perimenopausal women can display HCG levels of up to 20 mIU/mL 61 [id number] GC/Chlamydia Source?: Endocervical Trichomonas Source: Endocervical 62 SEE RESULT BELOW Name: LISSETTE RANKIN : [address]: Geraldine Chakraborty CM Acct: [id number] Unit: [id number] AGE: 21 Location: [facility] Re04/12/17 SEX: F Status: REG REF SPEC: [id number] SEBASTIEN: 04/12/17-[address] [facility] [address]: Geraldine Chakraborty CM REQ: [id number] RECD: 04/12/17 STATUS: COMP _ SOURCE: VAGINAL [...] therapeutic success or failure. * ML - [facility] ([facility]) . END OF REPORT * ML=Testing performed at Main Lab DEPARTMENT OF PATHOLOGY, [address] [place] [address] Yony Calvert M.D. Director [facility] # [id number] 63 Test Performed by: [address] [address] 64 <5.0 Negative 5.0 - 25.0 Indeterminate (Repeat testing recommended after 72 hours) >25.0 Positive Perimenopausal women can display HCG levels of up to 20 mIU/mL 65 SEE RESULT BELOW Name: LISSETTE RANKIN : [address]: Heriberto Go MD Acct: [id number] Unit: [id number] AGE: 19 Location: [facility] 340-01 Re07/07/15 Dis: 07/08/15 SEX: F Status: DIS Baylee SPEC: [id number] SEBASTIEN: 07/07/15- SUBM DR: Heriberto Go MD REQ: [id number] RECD: 07/07/15 STATUS: SOUT _ ORDERED: LEVEL [...] are not identified. No parts are identified. Grain Inspector sections, four cassettes. Signed (signature on file) Jannette Tadeo MD 1344 END OF REPORT * ML=Testing performed at Main Lab DEPARTMENT OF PATHOLOGY, [address] [place] [address] Yony Calvert M.D. Director [facility] # [id number] 66 Verbal to by [id number] at 1649 on 07/07/15. Results read back accurately. 67 Verbal to [id number] by [id number] at 1649 on 07/07/15. Results read back accurately. 68 --- 07/07/15 1524 --- Antibody Screen previously reported as: POSITIVE first antibody screen, ABID is negative, FAROOQ is negative, repeated antibody screen is negative 69 SEE RESULTS BELOW [id number] OP PC TRANSFUSED 07/08/15 0002 [id number] OP TRANSFUSED 07/07/15 2107 70 SEE RESULT BELOW Name: MARIO ARMSTRONGLISSETTE : [address]: Geraldine AUGUSTIN Acct: [id number] Unit: [id number] AGE: 19 Location: [facility] Re05/27/15 SEX: F Status: REG REF SPEC: [id number] SEBASTIEN: 05/27/[address]: Geraldine Chakraborty [facility] REQ: [id number] RECD: 05/27/15 STATUS: COMP _ SOURCE: CER/VAG/RE SPDESC: ORDERED: Grp B Strp Scrn QUERIES: Is Patient Penicillin Allergic? N Is patient penicillin allergic and/or sensitivities needed? N Provider Requisition # [id number]_ Procedure Result Reported Site Group B Strep Culture Screen Final 05/29/15- 1300 ML Group B Strep Screen Negative * ML - MAIN LAB ([facility]) . END OF REPORT * ML=Testing performed at Main Lab DEPARTMENT OF PATHOLOGY, [address] [place] [address] Yony Calvert M.D. Director [facility] # [id number] 71 GLU Fast 85 Col: 04/07/15 0805 GLU 1HR 171 Col: 04/07/15 0910 GLU 2HR 161 Col: 04/07/15 1015 GLU 3HR 96 Col: 04/07/15 1112 GLU Interp Col: 04/07/15 0805 GTT normal ranges for obstetrics per the [place] [employer] (ACOG).Based on 100 gm glucose load: Fasting <95 mg/dl 1hr <180 mg/dl 2hr <155 mg/dl 3hr <140 mg/dl 72 SCREEN NEGATIVE FOR OPEN NTD, DOWN SYNDROME AND TRISOMY 18. NT WAS USED IN THE RISK CALCULATIONS. 73 [place] rump length (CRL) was used to calculate gestational age. JOY, if provided, was not used for gestational age dating. 74 Reference Range: <2.50 IDD <1.90 TWINS <4.00 TWINS IDD <3.50 TRIPLETS <4.50 75 The Sequential Integrated Screen combines ELOY-A and [...] technique. Interpretation reviewed by: Ronel Daniels, Ph.D., [facility]. This is a screening test, not a diagnostic test. This risk assessment is based on demographic data provided by the ordering physician. Please notify the laboratory promptly if any data are incorrect. If you have questions concerning this report: For clinical consultation, call ; For technical questions, call ext [phone]; For recalculations, fax to . This test was developed and its performance characteristics have been determined by [facility]. Performance characteristics refer to the analytical performance of the test. 76 For additional information, please refer to http://education.[employer]/faq/FAQ94 (This link is provided for informational/educational purposes only.) 77 This patient's risk does not exceed the [...] following Specimen # from Part 1: [id number] 78 [place] rump length (CRL) was used to calculate gestational age. JOY, if provided, was not used for gestational age dating. 79 Interpretation reviewed by: Rafiq Deluna, Ph.D., [facility] This is a screening test, not [...] its performance characteristics have been determined by [facility]. Performance characteristics refer to the analytical performance of the test. For additional information, please refer to http://[employer]/faq/FAQ89 (This link is being provided for informational/educational purposes only.) 80 For additional information, please refer to http://[employer]/faq/FAQ89 (This link is being provided for informational/educational purposes only.) 81 For additional information, please refer to http://[employer]/faq/FAQ89 (This link is being provided for informational/educational purposes only.) 82 For additional information, please refer to http://[employer]/faq/FAQ89 (This link is being provided for informational/educational purposes only.) 83 For additional information, please refer to http://[employer]/faq/FAQ89 (This link is being provided for informational/educational purposes only.) 84 For additional information, please refer to http://[employer]/faq/FAQ89 (This link is being provided for informational/educational purposes only.) 85 For additional information, please refer to http://[employer]/faq/FAQ89 (This link is being provided for informational/educational purposes only.) 86 For additional information, please refer to http://[employer]/faq/FAQ89 (This link is being provided for informational/educational purposes only.) 87 For additional information, please refer to http://[employer]/faq/FAQ89 (This link is being provided for informational/educational purposes only.) 88 For additional information, please refer to http://[employer]/faq/FAQ89 (This link is being provided for informational/educational purposes only.) 89 For additional information, please refer to http://[employer]/faq/FAQ89 (This link is being provided for informational/educational purposes only.) 90 For additional information, please refer to http://[employer]/faq/FAQ89 (This link is being provided for informational/educational purposes only.) 91 For additional information, please refer to http://[employer]/faq/FAQ89 (This link is being provided for informational/educational purposes only.) 92 For additional information, please refer to http://[employer]/faq/FAQ89 (This link is being provided for informational/educational purposes only.) 93 For additional information, please refer to http://[employer]/faq/FAQ89 (This link is being provided for informational/educational purposes only.) 94 For additional information, please refer to http://[employer]/faq/FAQ89 (This link is being provided for informational/educational purposes only.) 95 For additional information, please refer to http://[employer]/faq/FAQ89 (This link is being provided for informational/educational purposes only.) 96 For additional information, please refer to http://[employer]/faq/FAQ89 (This link is being provided for informational/educational purposes only.) 97 For additional information, please refer to http://[employer]/faq/FAQ89 (This link is being provided for informational/educational purposes only.) 98 For additional information, please refer to http://[employer]/faq/FAQ89 (This link is being provided for informational/educational purposes only.) 99 For additional information, please refer to http://[employer]/faq/FAQ89 (This link is being provided for informational/educational purposes only.) 10 For additional information, please refer to 0 http://[employer]/faq/FAQ89 (This link is being provided for informational/educational purposes only.) 10 For additional information, please refer to 1 http://[employer]/faq/FAQ89 (This link is being provided for informational/educational purposes only.) 10 For additional information, please refer to 2 damntheradio://[employer]/faq/FAQ89 (This link is being provided for informational/educational purposes only.) 10 For additional information, please refer to 3 http://[employer]/faq/FAQ89 (This link is being provided for informational/educational purposes only.) 10 For additional information, please refer to 4 http://[employer]/faq/FAQ89 (This link is being provided for informational/educational purposes only.) 10 For additional information, please refer to 5 damntheradio://[employer]/faq/FAQ89 (This link is being provided for informational/educational purposes only.) 10 For additional information, please refer to 6 damntheradio://[employer]/faq/FAQ89 (This link is being provided for informational/educational purposes only.) 10 For additional information, please refer to 7 damntheradio://[employer]/faq/FAQ89 (This link is being provided for informational/educational purposes only.) 10 For additional information, please refer to 8 damntheradio://[employer]/faq/FAQ89 (This link is being provided for informational/educational purposes only.) 10 Therapeutic target for the treatment of diabetes 9 Mellitus patients is <7% HBA1C, and in selective patients <6.0%.Please refer to [place] [employer] Diabetic care guidelines for further information. 11 , Pediatric (<=12yrs) or Maternal?: YES 0 11 It is recognized that currently available assays for the 1 detection of antibodies to HIV-1 and/or HIV-2 [...] 95% confidence interval of 99.78 to 99.96%. 11 SEE RESULT BELOW 2 Name: LISSETTE RANKIN : [address]: Kristin Clayton NP Acct: [id number] Unit: [id number] AGE: 19 Location: [facility] Re11/25/14 SEX: F Status: REG REF SPEC: [id number] SEBASTIEN: 11/25/14-1011 SUBM : Kristin Clayton NP REQ: [id number] RECD: 11/25/14 STATUS: COMP _ SOURCE: URINE SPDESC: ORDERED: Urine Culture Procedure Result Verified Site Urine Culture Final 11/27/14- 923 ML Organism 1 NORMAL EMERITA Walcott Count 50-75,000 (Many) CFU/ML * ML - MAIN LAB (PSC1) . END OF REPORT * ML=Testing performed at Main Lab DEPARTMENT OF PATHOLOGY, [address] [place] [address] Yony Calvert M.D. Director [facility] # [id number] 11 Female urine specimens have been self-validated by [address] [facility] and have been granted conditional assay approval by [facility]. 11 SEE RESULT BELOW 4 Name: LISSETTE RANKIN : [address]: Kristin Clayton NP Acct: [id number] Unit: [id number] AGE: 19 Location: [facility] Re11/25/14 SEX: F Status: REG REF SPEC: [id number] SEBASTIEN: 11/25/14-[address]: Kristin Clayton CAN TOP SETTER REQ: [id number] RECD: 11/25/14 STATUS: SOUT _ ORDERED: IMAGE [...] was evaluated with the assistance of the [employer] Test Imaging System. Due to cytologic findings at the radio journalist microscope, comprehensive manual rescreening by a Cable Tool Driller may be required. The Pap Smear is [...] performed at Main Lab DEPARTMENT OF PATHOLOGY, [address] [place] [address] Yony Calvert M.D. Director [facility] # [id number] 11 RUN DATE: 04/24/13 [facility] LIVE PAGE 1 5 RUN TIME: [address] [place] [address] Specimen Inquiry Name: MARIO ARMSTRONGLISSETTE : [address]: Lavern Spencer MD Acct: [id number] Unit: [id number] AGE: 17 Location: [place] [address] Re04/22/13 SEX: F Status: ADM IN SPEC: [id number] SEBASTIEN: 04/22/13- [facility] DR: Aníbal Schultz MD REQ: [id number] RECD: 04/22/13 STATUS: SOUT _ ORDERED: LEVEL [...] performed at Main Lab DEPARTMENT OF PATHOLOGY, [facility] [employer] [place], [place] [address] Yony Calvert M.D. Director [facility] Permit #[id number] RUN DATE: 04/24/13 [facility] LIVE PAGE 2 RUN TIME: 152 [facility] [employer] [place], [place] [address] Specimen Inquiry Patient: LISSETTE RANKIN [id number] (Continued) GROSS DESCRIPTION (Continued) GROSS DESCRIPTION (Continued) [...] The membranes are thin, translucent, and pliable. Grain Inspector sections, two cassettes. Signed (signature on file) Jannette Tadeo MD 1526 11 RUN DATE: 03/23/13 [facility] LIVE PAGE 1 6 RUN TIME: [address] [place] [address] Specimen Inquiry Name: LISSETTE RANKIN : [address]: Florence SHETH Acct: [id number] Unit: [id number] AGE: 17 Location: [facility] Re03/21/13 SEX: F Status: REG REF SPEC: [id number] SEBASTIEN: 03/21/13-[address]: Florence SHETH REQ: [id number] RECD: 03/21/13 STATUS: COMP _ SOURCE: CER/VAG/RE SPDESC: ORDERED: Grp B Strp Scrn QUERIES: Is Patient Penicillin Allergic? N Medent Number [id number] Procedure Result Verified Site Group B Strep Culture Screen Final 03/23/13- 1150 ML Group B Strep Screen Negative END OF REPORT * ML=Testing performed at Main Lab DEPARTMENT OF PATHOLOGY, [address] [place] [address] Yony Calvert M.D. Director [facility] Permit #[id number] 11 GLU Fast 76 Col: 01/10/13 0824 7 GLU 1HR 134 Col: 01/10/13 0924 GLU 2HR 98 Col: 01/10/13 1024 GTT Interp Col: 01/10/13823 Gestational Diabetes Diagnostic: OGTT Glucose Load: samples drawn after 75-gram glucose drink Target Levels: Fasting <92 mg/dl 1hr <180 mg/dl 2hr <153 mg/dl If ONE or more values meet or exceed the target level, gestational diabetes is diagnosed. 11 SCREEN NEGATIVE FOR OPEN NTD, DOWN SYNDROME AND TRISOMY 18. 8 NT WAS USED IN THE RISK CALCULATIONS. 11 [place] rump length (CRL) was used to calculate gestational 9 age. JOY, if provided, was not used for gestational age dating. 12 Reference Range: 0 <2.50 IDD <1.90 TWINS <4.00 TWINS IDD <3.50 TRIPLETS <4.50 12 The Sequential Integrated Screen combines ELOY-A and hCG 1 with or without a nuchal translucency measurement [...] technique. Interpretation reviewed by: Rafiq Deluna, Ph.D., [facility] This is a screening test, not [...] its performance characteristics have been determined by [facility]. Performance characteristics refer to the analytical performance of the test. 12 RUN DATE: 09/28/12 [facility] LIVE PAGE 1 2 RUN TIME: [address] [place] [address] Specimen Inquiry Name: MARIOLISSETTE CORTEZ : [address]: Nancy Chahal [facility] Acct: [id number] Unit: [id number] AGE: 17 Location: [facility] Re09/26/12 SEX: F Status: REG REF SPEC: [id number] SEBASTIEN: 09/26/12-[address]: Nancy Chahal [facility] REQ: [id number] RECD: 09/26/12 STATUS: COMP _ SOURCE: URINE SPDESC: ORDERED: Urine Culture QUERIES: Medent Number [id number] Procedure Result Verified Site Urine Culture Final 09/28/12- 1135 ML Organism 1 NORMAL EMERITA Walcott Count 25-50,000 (Moderate) CFU/ML END OF REPORT * ML=Testing performed at Main Lab DEPARTMENT OF PATHOLOGY, [address] [place] [address] Yony Calvert M.D. Director [facility] Permit #[id number] 12 RUN DATE: 09/28/12 [facility] LIVE PAGE 1 3 RUN TIME: [address] [place] [address] Specimen Inquiry Name: MARIO LISSETTE ARMSTRONG : [address]: Nancy Chahal CNM Acct: [id number] Unit: [id number] AGE: 17 Location: [facility] Re09/26/12 SEX: F Status: REG REF SPEC: [id number] SEBASTIEN: 09/26/12-145[address] DR: Nancy Chahal [facility] REQ: [id number] RECD: 09/27/12 STATUS: COMP _ SOURCE: ENDOCERVIX SPDESC: ORDERED: LI/Itz RNA QUERIES: Medent Number [id number] Procedure Result Verified Site Chlamydia Trachomatis RNA [...] result may have adverse psychosocial impact, the [facility] recommends retesting by a method using an [...] performed at Main Lab DEPARTMENT OF PATHOLOGY, [facility] [employer] [place], [place] [address] Yony Calvert M.D. Director [facility] Permit #[id number] RUN DATE: 09/28/12 [facility] LIVE PAGE 2 RUN TIME: 1418 [address] [place], [place] [address] Specimen Inquiry Patient: LISSETTE RANKIN [id number] (Continued) Specimen: [id number] Collected: 09/26/12-1453 Received: 09/27/12-1024 (Continued) Procedure Result Verified Site GC (N. gonorrhoeae) RNA Final (continued) 09/28/12- 7429 Performance characteristics for detecting C. trachomatis and N. gonorrhoeae are derived from high prevalence populations. Positive results in low prevalence populations should be interpreted carefully with the understanding that the likelihood of a false positive may be higher than a true positive. END OF REPORT * ML=Testing performed at Main Lab DEPARTMENT OF PATHOLOGY, [address] [place] [address] Yony Calvert M.D. Director [facility] Permit #[id number] 12 This patient's risk does not exceed the first trimester 4 cut-off for Down syndrome or trisomy 18. [...] following Specimen # from Part 1: [id number] 12 [place] rump length (CRL) was used to calculate gestational 5 age. JOY, if provided, was not used for gestational age dating. 12 Interpretation reviewed by: Ronel Daniels, Ph.D., [facility]. 6 This is a screening test, not a [...] its performance characteristics have been determined by [facility]. Performance characteristics refer to the analytical performance of the test. 12 / 7 12 INTERPRETATION: NORMAL PATTERN 8 By high-performance liquid chromatography (HPLC), there is a normal pattern of hemoglobins and normal levels of HbA2 and HbF are present. No variant hemoglobins or microcytosis are observed. This is consistent with A/A phenotype. Rare variant hemoglobins have been known to co-elute with hemoglobin A by high-performance liquid chroma- tography. If clinically indicated, Thalassemia and Hemoglobinopathy comprehensive is available (Test code 04716I[59076]). 12 NEGATIVE; NONE OF THE MUTATIONS LISTED 9 BELOW WERE DETECTED 13 This result does not rule out the presence of a 0 mutation or a diagnosis of cystic fibrosis disease (CF).* The risk for mutations that cause CF other than the ones tested depends greatly on family history, clinical presentation, and ethnicity. Chance of Having a CF Mutation Ethnic Group Detection Before After Negative Rate Test Result [employer]azi [employer] 94% 1 in 24 1 in 400 Non- 88% 1 in 25 1 in 208 -Latvian 72% 1 in 46 1 in 164 -Latvian 65% 1 in 65 1 in 186 -Latvian 49% 1 in 94 1 in 184 Other insufficient data available For assistance with interpretation of these results, please contact your local [facility] genetic counselor or call [phone] ([phone]). 13 G85E (c.254 G>A) 3120+1 G>A(c.2988+1G>A) 1 R334W (c.1000 C>T) 394delTT (c.262_263delTT) V520F (c.1558 G>T) 1717-1 G>A(c.1585-1 G>A) R553X (c.1657 C>T) 1898+1 G>A(c.1766+1 G>A) R1182T(c.3846 G>A) 3659delC (c.3437delC) R347H (c.1040 G>A) 621+1 G>T (c.489+1 G>T) R560T (c.1679 G>C) 3905insT (c.3773_3774insT) Y2704Y(c.3484 C>T) 2183AA>G (c.2051_2052delAAinsG) H0863P(c.3909 C>G) 711+1 G>T (c.579+1 G>T) R117H (c.350 G>A) K603vcm (c.1519_1521delATC) R347P (c.1040 G>T) 2184delA (c.2052delA) G542X (c.1624 G>T) 3876delA (c.3744delA) A455E (c.1364 C>A) 1078delT (c.948delT) S549N (c.1647 G>A) M674ija (c.1521_1523delCTT) S549R (c.1646 A>C) 2789+5 G>A(c.2657+5 G>A) G551D (c.1652 G>A) 3849+10kb C>T (c.1284-0840 C>T) This assay detects thirty-two mutations, including the twenty-three core mutations recommended by the [place] [employer] (ACMG) and the [place] [employer] (ACOG) for [...] that these mutations are not benign polymorphisms. 13 The mutations listed above are detected by an 2 oligonucleotide ligation assay (RASHID) after multiplex- polymerase chain reaction (PCR) amplification of specific CF gene regions. Fluorescent allele-specific reaction products are detected by capillary electrophoresis. Since genetic variation and other factors can affect the accuracy of direct mutation testing, the results of this testing should always be interpreted in light of clinical and familial data. 13 Myranda Medeiros, Ph.D., [facility] 3 Director, Molecular Genetics The performance characteristics of this assay have been determined by [facility]. Performance characteristics refer to the analytical performance of the test. For more information on this test, go to http://education.[employer].Canal do [employer]ito/faq/cfscreen 13 It is recognized that currently available assays for the 4 detection of antibodies to HIV-1 and/or HIV-2 [...] 95% confidence interval of 99.78 to 99.96%. 13 Therapeutic target for the treatment of diabetes 5 Mellitus patients is <7% HBA1C, and in selective patients <6.0%.Please refer to [place] [employer] Diabetic care guidelines for further information. 13 YES 6 Procedures Date Code Description Status 11/09/2018 30691 Echography Transvaginal Completed 02/20/2018 26955 Obstetric Care Routine Completed 01/30/2018 27278 Echography Uterus Limited Completed 12/30/2017 72778 Non-Stress Test Completed 10/11/2017 07847 Echography Uterus Complete Completed 07/24/2017 36926 OB Ultrasound First Trimester Completed 11/22/2016 52825 Echography Transvaginal Completed 07/07/2015 89150 Dilation & Curettage (D&C) Completed 06/30/2015 75676 Obstetric Care Routine Completed 02/05/2015 33819 Echography Uterus Complete Completed 12/19/2014 81011 Nuchal Translucency Ultrasound /First Gestation Completed 11/25/2014 76160 OB Ultrasound First Trimester Completed 04/22/2013 89334 Obstetric Care Routine Completed 01/10/2013 46253 Injection Intramuscular Or Subcutaneous Completed 11/28/2012 45668 Echography Uterus Complete Completed 09/26/2012 32714 Nuchal Translucency Ultrasound /First Gestation Completed Encounters Type Date Location Provider Dx Diagnosis Office Visit 11/09/2018 [facility] Aimee Garcia, N92.0 Excessive and 11:00a CNM frequent menstruation with regular cycle Office Visit 10/05/2018 [facility] Aimee Garcia, Z01.419 Encntr for rv repairer exam 11:00a CNM (general) (routine) w/o abn findings N93.9 Abnormal uterine and vaginal bleeding, unspecified Office Visit 03/16/2018 9:30a [facility] Lavern Spencer, R10.30 Lower abdominal MD pain, unspecified Office Visit 12/30/2017 9:09a Delivery Lavern Spencer, R51 Headache H53.8 Other visual disturbances Office Visit 06/21/2017 10:20a [facility] Jillian Bray, O46.8x1 Other antepartum ANP-C hemorrhage, first trimester Office Visit 05/16/2017 1:00p [facility] Office Aníbal Schultz, Z31.69 Encounter for otartemio Quiroz general coun and advice on procreation Office Visit 04/12/2017 11:20a [facility] Office Geraldine F52.6 Dyspareunia not due JAMES Chakraborty to a substance or known physiol cond Office Visit 12/05/2016 10:20a [facility] Office Jillian Bray, Z30.49 Encounter for ANP-C surveillance of other contraceptives Office Visit 11/22/2016 11:20a [facility] Office Jillian Bray, Z13.0 Encntr screen for dis ANP-C of the bld/bld-form org/immun mechnsm N92.5 Other specified irregular menstruation Office Visit 11/21/2016 11:00a [facility] Lavern Spencer, N92.5 Other specified MD irregular menstruation Office Visit 09/21/2016 11:00a [facility] Office Kristin Clayton, ERICK O02.1 Missed Office Visit 09/04/2012 2:00p [facility] Office Nancy Chahal, DEBORA 646.90 Complication Unspec Other Episode Of Care Unsp N/A
[2018-11-29 20:41] VITALS: BP 137/76
[2018-11-29] MEDS ORDERED: Cephalexin CAP* 500 MG PO ONE (20:49)
--- NOTE | 2018-11-29 20:51 | UC ---
Skin Complaint HPI - HPI Summary HPI Summary: Started w/ L hand mosquito bite and it quickly started to become painful and swollen. Woke up today with the outer part of her hand worse w/ redness and pain. nothing makes it better. - History of Current Complaint Chief Complaint: UCUpperExtremity Time Seen by Provider: 11/29/18 20:33 Stated Complaint: BUG BITE Hx Obtained From: Patient Hx Last Menstrual Period: 11/13/18 Onset/Duration: Sudden Onset Pain Intensity: 1 Pain Scale Used: 0-10 Numeric Location: Discrete Character: Swelling, Redness, Painful Aggravating Factor(s): Nothing Alleviating Factor(s): Nothing - Allergy/Home Medications Allergies/Adverse Reactions: Allergies Allergy/AdvReac Type Severity Reaction Status Date / Time No Known Allergies Allergy Verified 11/29/18 20:41 Home Medications: Home Medications Magnesium 30 mg PO DAILY 11/29/18 [History Confirmed 11/29/18] Vit D3/Folic Acid/B2/B6/B12 [Folgard Tablet] 1 tab PO DAILY 11/29/18 [History Confirmed 11/29/18] PMH/Surg Hx/FS Hx/Imm Hx Previously Healthy: Yes Psychological History: Depression Other History Of: Negative For: Anticoagulant Therapy - Surgical History Surgical History: Yes Surgery Procedure, Year, and Place: D&C 2015 - Family History Known Family History: Positive: Hypertension, Respiratory Disease - asthma Negative: Cardiac Disease, Diabetes - Social History Alcohol Use: Weekly Alcohol Amount: w/e Substance Use Type: None Smoking Status (MU): Never Smoked Tobacco Have You Smoked in the Last Year: No - Immunization History Most Recent Influenza Vaccination: Not UTD Most Recent Tetanus Shot: 01/10/13 Most Recent Pneumonia Vaccination: none Review of Systems All Other Systems Reviewed And Are Negative: Yes Constitutional: Negative: Fever Skin: Positive: Other - redness at L hand. Negative: Rash Respiratory: Positive: Negative Cardiovascular: Positive: Negative Musculoskeletal: Positive: Edema - L hand Physical Exam Triage Information Reviewed: Yes Appearance: Well-Appearing Vital Signs: Initial Vital Signs Temp 99.2 F 11/29/18 20:35 Pulse 108 11/29/18 20:35 Resp 12 11/29/18 20:35 BP 137/76 11/29/18 20:35 Pulse Ox 100 11/29/18 20:35 Vital Signs Reviewed: Yes Neck: Positive: Supple, Nontender, No Lymphadenopathy Respiratory Exam: Normal Cardiovascular Exam: Normal Skin: Positive: Other - dorsal aspect of L hand is tender, warm, swollen edematous. excoriation noted. Course/Dx - Course Course Of Treatment: Cellulitic area at dorsal aspect of L hand x 1 day after a mosquito bite. No joint involvement and afebrile. will tx w/ keflex. - Differential Diagnoses - Skin Complaint Differential Diagnoses: Abscess, Cellulitis, Contact Dermatitis - Diagnoses Provider Diagnosis: Cellulitis Discharge - Sign-Out/Discharge Documenting (check all that apply): Patient Departure All imaging exams completed and their final reports reviewed: No Studies - Discharge Plan Condition: Good Disposition: HOME Prescriptions: Cephalexin CAP* [Keflex CAP*] 500 mg PO BID 7 Days #13 cap Patient Education Materials: Cellulitis (DC) Referrals: Oziel Bailey NP [Primary Care Provider] - Additional Instructions: If worsening please follow up with your primary care. - Billing Disposition and Condition Condition: GOOD Disposition: Home - Attestation Statements Provider Attestation: Per institutional requirements, I have reviewed the chart, however, I was not consulted specifically or made aware of this patient by the midlevel provider. I did not personally evaluate, interact with , or disposition this patient.
== END 2018-11-29 21:01 | disposition home or self-care (01) ==
LOC: UCEAST 20:19
DX: S60.562A Insect bite (nonvenomous) of left hand, initial encounter (principal); L03.114 Cellulitis of left upper limb; W57.XXXA Bitten or stung by nonvenomous insect and other nonvenomous arthropods, initial encounter; Y93.9 Activity, unspecified
CPT/HCPCS: 99212; A9270-GY; G0463

== ENCOUNTER 2019-02-27 09:18 | Emergency (ER) | payer OTHER ==
--- OUTSIDE RECORDS SUMMARY | 2019-02-27 09:25 | XMS REPORT | Continuity of Care Document ---
:1995 External Reference #:[id number] Author Name Oziel Bailey NP (transmitted by agent of provider Tere Yung) Address [address], [place] [address] Care Team Providers Name Role Phone Oziel Bailey NP - Internal Medicine Care Team Information Furniture Mover Helper [phone] Problems Active Problems Provider Date Depressive disorder Oziel Bailey NP Onset: 04/23/2017 Anxiety Oziel Bailey NP Onset: 04/23/2017 Social History Type Date Description Comments Sex Unknown ETOH Use Denies alcohol use ETOH Use Occasionally consumes alcohol Tobacco Use Start: Unknown Patient has never smoked Recreational Drug Use Denies Drug Use Smoking Status Reviewed: 02/14/19 Patient has never smoked Exercise Type/Frequency Does not exercise Exercise Type/Frequency 3 young children Allergies, Adverse Reactions, Alerts Description No Known Drug Allergies Medications Active Medications SIG Qnty Indications Ordering Provider Date Sertraline HCL 2 by mouth every Oziel Bailey NP 11/08/2018 100mg day Tablets Vitamin D3 Ultra 1 by mouth once 12tabs E55.9 Oziel Bailey NP 10/24/2018 Potency weekly for 12 77851Weyl weeks . Tablets Magnesium Oxide One tablet once 30tabs E83.42 Oziel Bailey NP 10/24/2018 daily 400(240Mg) mg Tablets Immunizations CPT Code Status Date Vaccine Lot # 36765 Given 05/06/2014 Flu Vaccine Split Virus Preservative Free For Indiv [id number] 3Yr Older 71222 Given 04/13/2010 Hepatitis A Vaccine Pediatric/Adolescent Dosage 2 Dose Schedule 81927 Given 07/03/2009 Meningitis MCV4 MenACWY Meningococcal Conjugate Vaccine 54841 Given 04/08/2009 Hepatitis A Vaccine Pediatric/Adolescent Dosage 2 Dose Schedule 79223 Given 10/02/2008 Gardasil (HPV) 81158 Given 09/18/2008 Gardasil (HPV) 56859 Given 03/26/2008 Varicella (Chicken Pox) Immunization 28195 Given 03/20/2008 Gardasil (HPV) 74753 Given 08/31/2006 Tdap - Tetanus/Diptheria/Acellular Pertussis 84942 Given 08/31/2006 Gardasil (HPV) 70848 Given 08/11/2006 Tdap - Tetanus/Diptheria/Acellular Pertussis 37728 Given 08/18/1998 DTaP Vaccine Younger Than 7 49852 Given 08/18/1998 Measles Mumps And Rubella MMR 18454 Given 08/18/1998 IPV/Poliomyelitis Immunization 65159 Given 08/22/1996 Varicella (Chicken Pox) Immunization 31631 Given 12/22/1994 IPV/Poliomyelitis Immunization 62842 Given 12/22/1994 Measles Mumps And Rubella MMR 42169 Given 12/22/1994 DTaP Vaccine Younger Than 7 41738 Given 02/24/1994 IPV/Poliomyelitis Immunization 64959 Given 02/24/1994 DTaP Vaccine Younger Than 7 32746 Given 1993 Hep B Pediatric/Adolescent 09496 Given 1993 IPV/Poliomyelitis Immunization 11235 Given 1993 DTaP Vaccine Younger Than 7 19754 Given 1993 Hep B Pediatric/Adolescent 48679 Given 1993 IPV/Poliomyelitis Immunization 47284 Given 1993 DTaP Vaccine Younger Than 7 49682 Given 1993 Hep B Pediatric/Adolescent Vital Signs Date Vital Result Comment 02/14/2019 9:09am Height 65 inches 5'5" Weight 237.00 lb Heart Rate 80 /min BP Systolic Sitting 101 mmHg BP Diastolic Sitting 70 mmHg Body Temperature 98.0 F O2 % BldC Oximetry 96 % BMI (Body Mass Index) 39.4 kg/m2 11/27/2018 10:02am Height 65 inches 5'5" Weight 236.38 lb Clothes/shoes Heart Rate 88 /min Radial BP Systolic Sitting 138 mmHg Lue reg cuff BP Diastolic Sitting 80 mmHg Lue reg cuff BP Systolic Standing 142 mmHg Lue reg cuff BP Diastolic Standing 80 mmHg Lue reg cuff BMI (Body Mass Index) 39.3 kg/m2 Ejection Fraction 50-55% Echo 10/10/2018 Results Test Date Facility Test Result H/L Range Note CBC Auto 09/27/2018 [facility] White Blood 5.8 10^3/uL Normal 3.5-10.[address] [place] [address] [phone] Red Blood Count 4.55 10^6/uL Normal 3.70-4.87 Hemoglobin 12.0 g/dL Normal 12.0-16.0 Hematocrit 36 % Normal 33-41 Mean Corpuscular Volume 79 fL Low 80-97 Mean Corpuscular Hemoglobin 26 pg Low 27-31 Mean Corpuscular HGB Conc 33 g/dL Normal 31-36 Red Cell Distribution Width 15 % Normal 10.5-15 Platelet Count 337 10^3/uL Normal 150-450 Mean Platelet Volume 7.9 fL Normal 7.4-10.4 Abs Neutrophils 2.4 10^3/uL Normal 1.5-7.7 Abs Lymphocytes 2.5 10^3/uL Normal 1.0-4.8 Abs Monocytes 0.6 10^3/uL Normal 0-0.8 Abs Eosinophils 0.3 10^3/uL Normal 0-0.6 Abs Basophils 0.1 10^3/uL Normal 0-0.2 Abs Nucleated RBC 0 10^3/uL Granulocyte % 40.9 % Lymphocyte % 43.1 % Monocyte % 9.6 % Eosinophil % 5.4 % Basophil % 1.0 % Nucleated Red Blood Cells % 0.1 Inr/Protime 09/27/2018 [facility] Inr 0.99 Normal 0.77-1.[address] [place] [address] [phone] Laboratory test 09/27/2018 [facility] Partial 31.2 Normal 26.0 -36.[address] [place] [address] Time PTT [phone] D Dimer Quantitative < 200 ng/mL Normal Less Than 230 1 Troponin-I (TnI) 0.01 ng/mL <0.04 2 HCG < 0.60 mIU/mL 3 Comp Metabolic 09/27/2018 [facility] Sodium 140 mmol/L Normal 135-[address] [place] [address] [phone] Potassium 3.6 mmol/L Normal 3.5-5.0 Chloride 106 mmol/L Normal 101-111 Co2 Carbon Dioxide 24 mmol/L Normal 22-32 Anion Gap 10 mmol/L Normal 2-11 Glucose 104 mg/dL High 70-100 Blood Urea Nitrogen 10 mg/dL Normal 6-24 Creatinine 0.60 mg/dL Normal 0.51-0.95 BUN/Creatinine Ratio 16.7 Normal 8-20 Calcium 9.2 mg/dL Normal 8.6-10.3 Total Protein 8.1 g/dL Normal 6.4-8.9 Albumin 4.2 g/dL Normal 3.2-5.2 Globulin 3.9 g/dL Normal 2-4 Albumin/Globulin Ratio 1.1 Normal 1-3 Total Bilirubin 0.20 mg/dL Normal 0.2-1.0 Alkaline Phosphatase 66 U/L Normal 34-104 Alt 10 U/L Normal 7-52 Ast 16 U/L Normal 13-39 Egfr Non- 121.8 >60 Egfr 147.4 >60 4 Laboratory test 09/27/2018 [facility] Magnesium 1.8 mg/dL Low 1.9-2.7 [place] [address] [phone] TSH (Thyroid Stim Horm) 1.56 mcIU/mL Normal 0.34-5.60 Laboratory test finding 09/13/2018 [facility] Cortisol 7.38 g/ dL [address] [place] [address] [phone] Magnesium 1.9 mg/dL Normal 1.9-2.7 Iron 73 g/dL Normal 50-212 Iron & Iron 09/13/2018 [facility] Unsaturated Iron < 374 g/dL Binding Capacity [address] [place] [address] [phone] Total Iron Binding Capacity 389 g/dL Normal 250-450 Transferrin 278 mg/dL Normal 203-362 % Iron Saturation 19 % Normal 15-55 Vitamin B12 09/13/2018 [facility] Vitamin B12 365 pg/mL Normal 180-9[address] [place] [address] [phone] Folic Acid (Folate) 13.32 ng/mL >3.99 Laboratory test 09/13/2018 [facility] Vitamin D 12.7 ng/mL Low 20-[address] Total [address](Oh) [place] [address] [phone] 1 Please note: The following may produce [...] Range 145 to 180 Deficient Range <145 Procedures Date Code Description Status 10/16/2018 14891 Stress Test Completed 10/16/2018 07707 Stress Test Completed 10/10/2018 32352 ECHO Transthoracic, Real-Time 2D With Doppler And Color Completed Flow 10/10/2018 09159 ECHO Transthoracic, Real-Time 2D With Doppler And Color Completed Flow 09/10/2018 29833 EKG Tracing & Interpretation Completed Medical Devices Description No Information Available Encounters Type Date Location Provider Dx Diagnosis Office Visit 11/27/2018 [facility] Digna Randolph R00.2 Palpitations 10:00a Richie West E83.42 Hypomagnesemia Office Visit 11/08/2018 11:40a [facility] Internal Oziel Lynn, F32.89 [facility] [employer] [employer]PER[employer] depressive episodes Office Visit 10/24/2018 10:20a [facility] Oziel Lynn, R00.2 [facility] [employer]PER[employer] E55.9 Vitamin D deficiency, unspecified E83.42 Hypomagnesemia Z68.38 Body mass index (BMI) 38.0-38.9, adult Office Visit 09/10/2018 Yolanda Sawyer S. R00.0 Tachycardia, 2:00p Cardiology Richie West unspecified R94.31 Abnormal electrocardiogram [ECG] [EKG] Assessments Date Code Description Provider 02/14/2019 F41.9 Anxiety disorder, unspecified Ozielleonela Bailey, [employer] SET UP OPERATOR 02/14/2019 F32.89 Other specified depressive episodes Oziel Bailey, ROTARY [employer] SET UP OPERATOR 11/27/2018 R00.2 Palpitations Digna West M.D. 11/27/2018 E83.42 Hypomagnesemia Digna West M.D. 11/08/2018 F32.89 Other specified depressive episodes Ozielleonela Bailey, ROTARY PL[employer] SET UP OPERATOR 10/24/2018 R00.2 Palpitations Ozielleonela Bailey, ROTARY PL[employer]ER SET UP OPERATOR 10/24/2018 E55.9 Vitamin D deficiency, unspecified Ozielleonela Bailey, ROTARY PL[employer]ER SET UP OPERATOR 10/24/2018 E83.42 Hypomagnesemia Ozielleonela Bailey, ROTARY PL[employer]ER SET UP OPERATOR 10/24/2018 Z68.38 Body mass index (BMI) 38.0-38.9, adult Oziel Bailey, [employer]OTARY [employer] SET UP OPERATOR 10/16/2018 R00.0 Tachycardia, unspecified Digna West M.D. 10/16/2018 R94.31 Abnormal electrocardiogram [ECG] [EKG] Digna West M.D. 10/10/2018 R00.0 Tachycardia, unspecified Digna West M.D. 10/10/2018 R00.0 Tachycardia, unspecified [place] [facility] Schedule 10/10/2018 R94.31 Abnormal electrocardiogram [ECG] [EKG] [facility] 09/10/2018 R00.0 Tachycardia, unspecified Digna West M.D. 09/10/2018 R94.31 Abnormal electrocardiogram [ECG] [EKG] Digna West M.D. Plan of Treatment Future Appointment(s):08/19/2019 9:20 am - Oziel Bailey NP at [facility] Internal Medicine - [facility]02/28/2019 2:30 pm - Jenny Linn MD at [facility]02/14/2019 - Oziel Bailey NPF41.9 Anxiety disorder, unspecifiedComments:It is important to try to remember to take the sertraline daily. You could consider setting an alarmor putting it in a place that you cannot miss it.Follow up:Reschedule PE to August 2019.F32.89 Other specified depressive episodes Functional Status Description No Information Available Mental Status Description No Information Available Referrals Refer to Dr Reason for Referral Status Appt Date Lori Miguel MD Closed [address] [place], [place] [id number] [phone] [facility] Sent 09/10/2018 [address] [place] [address] [phone]
[2019-02-27 09:29] VITALS: BP 121/79
--- NOTE | 2019-02-27 11:17 | UC ---
Hand/Wrist HPI - HPI Summary HPI Summary: ONSET OF RIGHT DORSAL WRIST PAIN SEVERAL DAYS AGO. NO DISCRETE TRAUMA OR INJURY. 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 - History Of Current Complaint Chief Complaint: UCUpperExtremity Stated Complaint: RT WRIST PAIN PER PT Time Seen by Provider: 02/27/19 09:55 Hx Obtained From: Patient Hx Last Menstrual Period: 02/06/19 Onset/Duration: Gradual Onset, Lasting Days, Still Present Severity Initially: Moderate Severity Currently: Moderate Pain Intensity: 7 Pain Scale Used: 0-10 Numeric Character Of Pain: Sharp, Aching Aggravating Factor(s): Movement Alleviating Factor(s): Rest Associated Signs And Symptoms: Positive: Negative Related History: Dominant Hand Right - Allergies/Home Medications Allergies/Adverse Reactions: Allergies Allergy/AdvReac Type Severity Reaction Status Date / Time No Known Allergies Allergy Verified 02/27/19 09:29 Home Medications: Home Medications Cholecalciferol (Vitamin D3) [Vitamin D3] 1 tab PO DAILY 02/27/19 [History Confirmed 02/27/19] PMH/Surg Hx/FS Hx/Imm Hx Psychological History: Depression Other History Of: Negative For: Anticoagulant Therapy - Surgical History Surgical History: Yes Surgery Procedure, Year, and Place: D&C 2015 - Family History Known Family History: Positive: Hypertension, Respiratory Disease - asthma Negative: Cardiac Disease, Diabetes - Social History Alcohol Use: Weekly Alcohol Amount: w/e Substance Use Type: None Smoking Status (MU): Never Smoked Tobacco Have You Smoked in the Last Year: No - Immunization History Most Recent Influenza Vaccination: Not UTD Most Recent Tetanus Shot: 01/10/13 Most Recent Pneumonia Vaccination: none Review of Systems All Other Systems Reviewed And Are Negative: Yes Constitutional: Positive: Negative Skin: Positive: Negative Respiratory: Positive: Negative Cardiovascular: Positive: Negative Gastrointestinal: Positive: Negative Musculoskeletal: Positive: Arthralgia Physical Exam Triage Information Reviewed: Yes Appearance: Well-Appearing, No Pain Distress, Well-Nourished Vital Signs: Initial Vital Signs Temp 98.5 F 02/27/19 09:25 Pulse 98 02/27/19 09:25 Resp 16 02/27/19 09:25 BP 121/79 02/27/19 09:25 Pulse Ox 100 02/27/19 09:25 Vital Signs Reviewed: Yes Eyes: Positive: Conjunctiva Clear ENT: Positive: Hearing grossly normal Neck: Positive: Supple Respiratory: Positive: No respiratory distress, No accessory muscle use Cardiovascular: Positive: Pulses Normal Abdomen Description: Positive: Soft Musculoskeletal: Positive: ROM Intact, No Edema, Other: - MILDLY TENDER DORSAL RIGHT WRIST. NO FOCAL BONY TENDERNESS Neurological: Positive: Alert Psychological: Positive: Age Appropriate Behavior Skin: Negative: Rashes Hand/Wrist Course/Dx - Course Course Of Treatment: SUSPECTS TENDINITIS. COCKUP SPLINT APPLIED BY RN TO HELP OFFLOAD PRESSURE FROM THE WRIST DURING DAILY ACTIVITIES. ALSO ADVISED TO WEAR WHILE SLEEPING TO KEEP THE WRIST IMMOBILIZED TO PREVENT FURTHER STRAIN. FOLLOW-UP WITH ORTHOPEDICS IF NOT IMPROVING OVER THE NEXT SEVERAL WEEKS. - Differential Dx/Diagnosis Provider Diagnosis: Right wrist tendonitis Discharge ED - Sign-Out/Discharge Documenting (check all that apply): Patient Departure All imaging exams completed and their final reports reviewed: No Studies - Discharge Plan Condition: Stable Disposition: HOME Patient Education Materials: Tendinitis (ED) Referrals: Gilbert Powell MD [Medical Doctor] - If Needed Oziel Bailey NP [Primary Care Provider] - If Needed Additional Instructions: YOUR SYMPTOMS ARE SUGGESTIVE OF AN OVERUSE TENDONITIS. WEAR THE SPLINT AT NIGHT AND DURING THE DAY WHILE ACTIVE TO HELP OFFLOAD PRESSURE FROM THE WRIST. IF YOU DO NOT IMPROVE OVER THE NEXT MONTH OR SO FOLLOW-UP WITH YOUR PCP OR ORTHO. YOU MAY BENEFIT FROM IMAGING AT THAT TIME. REST. OTC IBUPROFEN OR ALEVE NEEDED FOR DISCOMFORT. BE SURE TO GO THROUGH SLOW RANGE OF MOTION AND STRETCHING EXERCISES DAILY YOU ARE ABLE TO PREVENT STIFFENING UP AND MAKING THE DISCOMFORT WORSE. - Billing Disposition and Condition Condition: STABLE Disposition: Home
== END 2019-02-27 10:20 | disposition home or self-care (01) ==
LOC: UCEAST 09:18
DX: M77.8 Other enthesopathies, not elsewhere classified (principal); F32.9 Major depressive disorder, single episode, unspecified
CPT/HCPCS: 99212; G0463

== ENCOUNTER 2019-04-24 09:19 | Emergency (ER) | payer OTHER ==
--- NOTE | 2019-04-24 11:19 | UC ---
Back Pain HPI - HPI Summary HPI Summary: Patient is a 23yo female presenting with b/l mid back pain that she states began 1 month ago and has gotten worse over past few day. Describes pain as aching and rates it 1/10 right now and 5/10 at its worst. Patient states pain is worse with lying down or picking up her children. Denies radiating pain. Denies incontinence. Denies numbness and tingling. Denies decreased ROM. Denies urinary symptoms. Denies n/v/d and abd pain. Patient states aleve does not help much. - History of Current Complaint Chief Complaint: UCBackPain Stated Complaint: BACK PAIN Hx Obtained From: Patient Hx Last Menstrual Period: 04/01/19 Onset/Duration: Gradual Onset, Lasting Weeks Timing: Intermittent Severity Initially: Mild Severity Currently: Mild Pain Intensity: 1 Pain Scale Used: 0-10 Numeric - Allergies/Home Medications Allergies/Adverse Reactions: Allergies Allergy/AdvReac Type Severity Reaction Status Date / Time No Known Allergies Allergy Verified 04/24/19 09:35 Home Medications: Home Medications NK [No Home Medications Reported] 04/24/19 [History Confirmed 04/24/19] PMH/Surg Hx/FS Hx/Imm Hx Other History Of: Negative For: Anticoagulant Therapy - Surgical History Surgical History: Yes Surgery Procedure, Year, and Place: D&C 2015 - Family History Known Family History: Positive: Hypertension, Respiratory Disease - asthma Negative: Cardiac Disease, Diabetes - Social History Lives: With Family Alcohol Use: Weekly Alcohol Amount: w/e Substance Use Type: None Smoking Status (MU): Never Smoked Tobacco Have You Smoked in the Last Year: No - Immunization History Most Recent Influenza Vaccination: Not UTD Most Recent Tetanus Shot: 01/10/13 Most Recent Pneumonia Vaccination: none Review of Systems All Other Systems Reviewed And Are Negative: Yes Constitutional: Positive: Negative Respiratory: Positive: Negative Cardiovascular: Positive: Negative Gastrointestinal: Positive: Negative Genitourinary: Positive: Negative Musculoskeletal: Positive: Myalgia - b/l mid back. Negative: Decreased ROM, Edema Neurological: Negative: Weakness, Paresthesia, Numbness Physical Exam Triage Information Reviewed: Yes Appearance: Well-Appearing, No Pain Distress, Well-Nourished Vital Signs: Initial Vital Signs Temp 98.6 F 04/24/19 09:32 Pulse 69 04/24/19 09:32 Resp 16 04/24/19 09:32 BP 122/80 04/24/19 09:32 Pulse Ox 100 04/24/19 09:32 Lab Results 04/24/19 04/24/19 Range/Units 10:53 10:56 POC Urine Color Yellow POC Urine Clarity Clear POC Urine pH 6.0 (5-9) POC Ur Specif Raymond 1.025 (1.010-1.030) POC Urine Protein Negative (Negative) POC Ur Glucose (UA) Negative (Negative) POC Urine Ketones Negative (Negative) POC Urine Blood Negative (Negative) POC Urine Nitrite Negative (Negative) POC Urine Bilirubin Negative (Negative) POC Urine Urobilinogen 0.2 (Negative) POC U Leukocyte Esteras Negative (Negative) POC Ur Test Negative (Negative) Vital Signs Reviewed: Yes Eyes: Positive: Conjunctiva Clear ENT: Positive: Hearing grossly normal Neck: Positive: Supple Respiratory Exam: Normal Respiratory: Positive: Lungs clear, Normal breath sounds, No respiratory distress Cardiovascular Exam: Normal Cardiovascular: Positive: RRR Abdomen Description: Negative: CVA Tenderness (R), CVA Tenderness (L) Musculoskeletal: Positive: Strength Intact, ROM Intact, No Edema, Other: - no tenderness to palpation of mid back Neurological: Positive: Alert Psychological: Positive: Age Appropriate Behavior Skin Exam: Normal Back Pain Course/Dx - Course Course Of Treatment: Discussed likely muscular source of thoracic back pain with patient but suggested xrays first. Patient declined xrays, stating she "doesn't have the time today." She then asked "how did my urine look?" I gave her urine and results, she declined again to have xrays, stating she would "just follow up with the referral." I gave referral and told to follow up if pain persists or go to ED if it worsens. Patient voiced understanding and agreed with plan. - Differential Dx/Diagnosis Provider Diagnosis: Thoracic back pain Discharge ED - Sign-Out/Discharge Documenting (check all that apply): Patient Departure All imaging exams completed and their final reports reviewed: No Studies - Discharge Plan Condition: Stable Disposition: HOME Patient Education Materials: Back Pain (ED), Thoracic Back Strain (ED) Referrals: Oziel Bailey, [employer] GIRL [Primary Care Provider] - If Needed Additional Instructions: As discussed, your symptoms are likely caused by back muscle strain. Continue with symptomatic treatment including rest, heating the area, and taking ibuprofen as directed for pain relief. Follow up with your PCP if pain persists. Go to the ED if you experience new or worsening symptoms. - Billing Disposition and Condition Condition: STABLE Disposition: Home
[2019-04-24 11:27] VITALS: BP 122/80
== END 2019-04-24 11:36 | disposition home or self-care (01) ==
LOC: UCEAST 09:19
DX: M54.6 Pain in thoracic spine (principal)
CPT/HCPCS: 81003; 84702; 99211; G0463

== ENCOUNTER 2021-03-08 09:58 | Inpatient (IN) ==
[2021-03-08] MEDS ORDERED: Buffered Lidocaine 1% SYRIN 1 ml INTRADERM ONE (11:01)
[2021-03-08] MEDS ORDERED: Lactated Ringers 1000 ml BAG 1,000 ML IV ONE ×2 (11:01→17:43)
[2021-03-08] MEDS ORDERED: Lactated Ringers 1000 ml BAG 1,000 ML IV SCH ×3 (12:00→22:00)
[2021-03-08 12:35] LABS: ABS Eosinophils 0.1 10^3/ul (0-0.6); ABS Lymphocytes 1.6 10^3/ul (1.0-4.8); ABS Monocytes 0.6 10^3/ul (0-0.8); ABS Neutrophils 3.9 10^3/ul (1.5-7.7); Eosinophil % 0.9 %; Hematocrit 32 % (35-47); Hemoglobin 10.6 g/dL (12.0-16.0); Lymphocyte % 25.6 %; Mean Corpuscular HGB Conc 33 g/dL (31-36); Mean Corpuscular Hemoglobin 26 pg (27-31); Mean Corpuscular Volume 78 fL (80-97); Mean Platelet Volume 8.4 fL (7.4-10.4); Nucleated Red Blood Cells % 0.1; Platelet Count 211 10^3/uL (150-450); Red Blood Count 4.05 10^6 /uL (3.70-4.87); Red Cell Distribution Width 16 % (10-15); White Blood Count 6.2 10^3/uL (3.5-10.8)
[2021-03-08 12:55] LABS: Urine Benzodiazepine Screen None Detected (None Detect); Urine Cannabinoids Screen None Detected (None Detect); Urine Opiates Screen None Detected (None Detect)
[2021-03-08] MEDS ORDERED: Oxytocin in LR 20 UNITS/1,000 ML BAG IVPB SCH ×2 (16:00→22:00)
[2021-03-08] MEDS ORDERED: OBEPIDURAL 250 ML EPIDURAL ONE (17:01)
[2021-03-08] MEDS ORDERED: Lidocaine 1% VIAL 10 MG/ML VIAL ONE (17:12)
[2021-03-08] MEDS ORDERED: Sodium Citrate/Citric Acid LIQ 15 ML UDC PO PRN (17:43)
[2021-03-08] MEDS ORDERED: Phenylephrine 40 mcg/mL 10mL (400mcg) SYRINGE IV PUSH PRN ×2 (17:43)
[2021-03-08] MEDS ORDERED: OBEPIDURAL 250 ML EPIDURAL SCH (18:00)
[2021-03-08 18:10] LABS: Urine Appearance Clear; Urine Bilirubin Negative (Negative); Urine Blood 1+ (Negative); Urine Color Yellow; Urine Glucose Negative (Negative); Urine Ketones 1+ (Negative); Urine Nitrite Negative (Negative); Urine Protein Negative (Negative); Urine Specific Gravity 1.013 (1.002-1.030); Urine Urobilinogen Negative (Negative)
[2021-03-08 18:26] LABS: Urine Amorphous Crystals Present (Absent); Urine Bacteria 1+ (Absent); Urine Red Blood Cell 2+(6-10/hpf) (Absent); Urine Squamous Epithelial Cell Present (Absent); Urine White Blood Cell Trace(0-5/hpf) (Absent)
[2021-03-08] MEDS ORDERED: Glycerin ADULT 2.4 gm SUPP PR PRN (21:45)
[2021-03-08] MEDS ORDERED: Dibucaine 1% OINT 28.35 GM TUBE PR PRN (21:45)
[2021-03-08] MEDS ORDERED: Witch Hazel PAD JAR TOPICAL PRN (21:45)
[2021-03-08] MEDS ORDERED: ceFAZolin 2 GM in NS PREMIX 2 GM/100 ML BAG IVPB ONE (21:53)
[2021-03-09 06:34] LABS: ABS Basophils 0.1 10^3/ul (0-0.2); ABS Eosinophils 0.1 10^3/ul (0-0.6); ABS Lymphocytes 1.7 10^3/ul (1.0-4.8); ABS Monocytes 0.9 10^3/ul (0-0.8); ABS Neutrophils 6.1 10^3/ul (1.5-7.7); Eosinophil % 0.6 %; Hematocrit 28 % (35-47); Hemoglobin 9.2 g/dL (12.0-16.0); Lymphocyte % 19.1 %; Mean Corpuscular HGB Conc 33 g/dL (31-36); Mean Corpuscular Hemoglobin 26 pg (27-31); Mean Corpuscular Volume 79 fL (80-97); Mean Platelet Volume 7.7 fL (7.4-10.4); Nucleated Red Blood Cells % 0.1; Platelet Count 188 10^3/uL (150-450); Red Blood Count 3.53 10^6 /uL (3.70-4.87); Red Cell Distribution Width 16 % (10-15); White Blood Count 8.8 10^3/uL (3.5-10.8)
[2021-03-10 09:39] VITALS: BP 117/69
== END 2021-03-10 10:20 | disposition home or self-care (01) | DRG 541 ==
LOC: MCHOBOUT 09:58 → MCHOB 11:02
PROVIDERS: ADMIT Obstetrics & Gynecology; ATTEND Obstetrics & Gynecology